=== PATIENT | female | born 1950 | race Caucasian/White ===

== ENCOUNTER 2020-04-01 10:21 | Emergency (ER) | payer MEDICARE, BC, SELFPAY ==
[2020-04-01 11:14] VITALS: BP 146/63; PULSE 81; RESP 16; TEMP 37; O2SAT 94; BMI 27.1
--- NOTE | 2020-04-01 11:25 | HMH.EDUTC ---
[facility] [place] Disposition Clinical Impression: Exposure to COVID-19 virus Disposition: Home, Self-Care Condition on Discharge: Good Instructions: DI for COVID-19 (Suspected or Confirmed ), Coronavirus Disease 2019, COVID-19: Testing and Tracing, Preventing the Spread of Coronavirus Discharge Instructions Additional Instructions: *Monitor Temp, Over the counter Motrin or Tylenol as directed/as needed Tylenol every 4 hours and Motrin every 6 hours (as long as your family doctor has told you that you can take it) for fever or pain. and straight to ER if unable to lower temp less than 101.0 after medication given Follow up IMMEDIATELY for new or worsening symptoms or no Noticeable improvement over the next 48-72 hours. 911 for difficulty breathing or swallowing You were tested for today for COVID19 your test result should be back in the next 24-48 hours, you may call to the [facility] to see if your test results are back in the next 48 hours [phone] [facility] hours are 9am-9pm You was given a handout with instructions for Self Quarantine and Self isolation for while you wait on test results and what to do if they are positive If you are positive the Health Dept will be contacting you also Referrals: Netta Miles PA [Primary Care Provider] - As needed Time of Disposition: 11:25 Medical Decision Making - Rm Inquiry Pt receiving controlled substance: No Rm was queried for this patient: No Vital Signs: 04/01/20 11:14 Temperature 98.6 F Temperature Source Oral Pulse Rate [Right] 81 Respiratory Rate 16 Blood Pressure [Right Arm] 146/63 H Blood Pressure Mean [Right Arm] 90 Blood Pressure Source [Right Arm] Automatic Cuff Blood Pressure Position [Right Arm] Sitting 02 Sat by Pulse Oximetry 94 L Oxygen Delivery Method Room Air Orders (Tests/Meds): ORDERS Category Date Time Status Covid-19 Nasal PCR ([facility]) Routine Lab 04/01/20 10:50 Received [facility] [place] HPI - General Stated complaint: covid exposure Time Seen by Provider: 04/01/20 11:25 Mode of Arrival: Ambulatory Source of Information: Patient Limitations: No Limitations Description of Symptoms (Recalled from Triage Doc. by RN): pt had covid exposure. Denies any symptoms HEENT Symptoms (Recalled from RN notes): No Resp Symptoms (Recalled from RN notes): No Skin Symptoms (Recalled from RN notes): No MS Symptoms (Recalled from RN notes): No Functional Status (Recalled from RN notes): na - History of Present Illness Provider Complaint: Patient states that she was recently around her grandchild that has since tested positive for COVID State that she is not having any symptoms but wanted to get tested anyway - Related Data Allergies Allergy/AdvReac Type Severity Reaction Status Date / Time From Penicillin G Sodium Allergy Unknown Uncoded 03/19/17 14:32 Penicillin Allergy Unknown Uncoded 03/19/17 14:32 - Worker's Comp Is this a Worker's Comp case?: No H History - Hepatitis A Screen Drug use history?: No High risk sexual behaviors?: No History of sexually transmitted infection?: No Currently employed?: No Childcare worker?: No Do you have indoor plumbing?: Yes Do you have electricity?: Yes Attestation statement:: This patient has been screened for Hepatitis A risk factors. I have reviewed the patient's past medical history: Yes ROS Obtained: Yes All systems reviewed & no additional complaints, Yes Systems reviewed as appropriate & no additional complaints - Constitutional Constitutional: Reports system reviewed and no additional complaints, except as docu, Denies body ache, Denies chills, Denies headache(s) - ENT Ears, Nose, Mouth, and Throat: Reports system reviewed and no additional complaints, except as docu - Cardiovascular Cardiovascular: Reports system reviewed and no additional complaints, except as docu Physical Exam - General General appearance: alert, in no apparent distress - Respiratory Respiratory exam: Present: normal
[2020-04-01 11:39] VITALS: BP 146/63; PULSE 81; RESP 16; TEMP 37; O2SAT 98
== END 2020-04-01 11:40 | disposition home or self-care (01) ==
PROVIDERS: Emergency Provider Nurse Practitioner; PCP Physician Assistant
DX: Z20.822 Contact with and (suspected) exposure to COVID-19 (principal); Z88.0 Allergy status to penicillin
CPT/HCPCS: G0463; 99202; U0003

== ENCOUNTER 2020-04-14 08:59 | Emergency (ER) | payer MEDICARE, BC, SELFPAY ==
[2020-04-14 09:05] VITALS: BP 163/89; PULSE 76; RESP 19; TEMP 36.6; O2SAT 98; BMI 28.8
--- NOTE | 2020-04-14 09:34 | HMH.EDUTC ---
[facility] [place] Clinical Impression: Encounter for laboratory testing for COVID-19 virus Disposition: Home, Self-Care Condition on Discharge: Good Instructions: DI for COVID-19 (Suspected or Confirmed ), Coronavirus Disease 2019, Preventing the Spread of Coronavirus Discharge Instructions Additional Instructions: *Monitor Temp, Over the counter Motrin or Tylenol as directed/as needed Tylenol every 4 hours and Motrin every 6 hours (as long as your family doctor has told you that you can take it) for fever or pain. and straight to ER if unable to lower temp less than 101.0 after medication given Follow up IMMEDIATELY for new or worsening symptoms or no Noticeable improvement over the next 48-72 hours. 911 for difficulty breathing or swallowing You were tested for today for COVID19 your test result should be back in the next 24-48 hours, you may call to the [facility] to see if your test results are back in the next 48 hours [phone] [facility] hours are 9am-9pm You was given a handout with instructions for Self Quarantine and Self isolation for while you wait on test results and what to do if they are positive If you are positive the Health Dept will be contacting you also Referrals: Netta Miles PA [Primary Care Provider] - As needed Time of Disposition: 09:36 Medical Decision Making - Rm Inquiry Pt receiving controlled substance: No mR was queried for this patient: No Vital Signs: 04/14/20 09:05 Temperature 97.8 F Temperature Source Oral Pulse Rate [Left Brachial] 76 Respiratory Rate 19 Blood Pressure [Left Arm] 163/89 H Blood Pressure Mean [Left Arm] 113 Blood Pressure Source [Left Arm] Automatic Cuff Blood Pressure Position [Left Arm] Sitting 02 Sat by Pulse Oximetry 98 Oxygen Delivery Method Room Air Orders (Tests/Meds): ORDERS Category Date Time Status Covid-19 Nasal PCR Sendout [facility] Stat Lab 04/14/20 09:14 [place] [facility] [place] - General Stated complaint: Covid test Time Seen by Provider: 04/14/20 09:34 Mode of Arrival: Ambulatory Source of Information: Patient Limitations: No Limitations Description of Symptoms (Recalled from Triage Doc. 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 and her has been having chills and body aches States that she is not having any symptoms but wanted to get checked - Related Data Allergies Allergy/AdvReac Type Severity Reaction Status Date / Time From Penicillin G Sodium Allergy Unknown Uncoded 03/19/17 14:32 Penicillin Allergy Unknown Uncoded 03/19/17 14:32 - Worker's Comp Is this a Worker's Comp case?: No [facility] History - Hepatitis A Screen Drug use history?: No High risk sexual behaviors?: No History of sexually transmitted infection?: No Currently employed?: No Childcare worker?: No Do you have indoor plumbing?: Yes Do you have electricity?: Yes Attestation statement:: This patient has been screened for Hepatitis A risk factors. I have reviewed the patient's past medical history: Yes - Social History Alcohol Intake: never Occupational Status: other ROS Obtained: Yes All systems reviewed & no additional complaints, Yes Systems reviewed as appropriate & no additional complaints - Constitutional Constitutional: Reports system reviewed and no additional complaints, except as docu, Denies body ache, Denies chills, Denies fever(s), Denies headache(s) - ENT Ears, Nose, Mouth, and Throat: Reports system reviewed and no additional complaints, except as docu, Denies nasal congestion, Denies nasal discharge, Denies sore throat - Cardiovascular Cardiovascular:
[2020-04-14 09:43] VITALS: BP 163/89; PULSE 76; RESP 19; TEMP 36.6; O2SAT 98
[2020-04-15 08:52] LABS: Covid-19 Nasal PCR Sendout P&C POSITIVE
--- NOTE | 2020-04-15 09:36 | PC.NURSE ---
patient notified of positive covid results
== END 2020-04-14 09:45 | disposition home or self-care (01) ==
PROVIDERS: Emergency Provider Nurse Practitioner; PCP Physician Assistant
DX: U07.1 COVID-19 (principal); Z88.0 Allergy status to penicillin
CPT/HCPCS: 99202; G0463; U0004

== ENCOUNTER 2021-12-03 08:16 | Emergency (ER) | payer MEDICARE, BC, SELFPAY ==
[2021-12-03 08:25] VITALS: BP 187/94; PULSE 78; RESP 18; TEMP 36.6; O2SAT 97; BMI 27.8
[2021-12-03 08:39] LABS: Apearance,Urine Cloudy (Clear); Bilirubin,Urine Negative (Negative); Blood, Urine Trace (Negative); Color,Urine Yellow (Yellow); Glucose,Urine (UA) Negative (Negative); Ketones,Urine Negative (Negative); PH,Urine 5.5 (5.0-8.5); Protein,Urine 1+ (Negative); UTC Leukocyte Esterase,Urine 1+ (Negative); UTC Nitrate,Urine Positive (Negative); Urobilinogen,Urine 0.2 EU/dl (0.2)
[2021-12-03 08:40] VITALS: BP 187/94; PULSE 78; RESP 18; TEMP 36.6; O2SAT 97
--- NOTE | 2021-12-03 08:40 | EXP.UTC ---
Discharge Plan Disposition Patient Disposition: Home, Self-Care Condition: Good Prescriptions Prescriptions: New sulfamethoxazole-trimethoprim [Bactrim DS] 800-160 mg tablet 1 tab PO Q12H 3 Days Qty: 6 0RF No Action metformin 500 mg Tablet Extended Release 24 Hr 500 mg PO BID Referrals Follow up/Referrals: Netta Miles PA [Primary Care Provider] - See instructions Clinical Impressions Clinical Impression: UTI (urinary tract infection), bacterial Instructions Patient Instructions: DI for Urinary Tract Infection (UTI) Discharge ED Provider: Nohemy Silverman [facility] [place] H[place] General Stated complaint: possible UTI Mode of Arrival: Ambulatory Source of Information: Patient Limitations: No Limitations Time Seen by Provider: 12/03/21 08:41 Description of Symptoms (Recalled from Triage Doc. by RN): PATIENT C/O BURNING WITH URINATION X 5 DAYS HEENT Symptoms (Recalled from RN notes): No Resp Symptoms (Recalled from RN notes): No Skin Symptoms (Recalled from RN notes): No MS Symptoms (Recalled from RN notes): No Functional Status (Recalled from RN notes): WNL History of Present Illness Provider Complaint: Pt relates that for the last 4 days she has had burning and frequency with urination. She denies taking anything for her symptoms. Related Data Home Medications Medication Instructions Recorded Confirmed metformin 500 mg tablet,extended 500 mg PO BID Diabetes 12/03/21 12/03/21 release 24 hr Previous Rx's Medication Instructions Recorded sulfamethoxazole 800 1 tab PO Q12H 3 days #6 tabs 12/03/21 mg-trimethoprim 160 mg tablet (Bactrim DS) Allergies Allergy/AdvReac Type Severity Reaction Status Date / Time Penicillins Allergy Verified 04/14/20 09:34 Worker's Comp Is this a Worker's Comp case?: No [facility] Medical History (Updated 12/03/21 @ 08:52 by Nohemy Silverman APRN) Diabetes mellitus, type 2 History of heart attack History of left heart catheterization Surgical History (Updated 12/03/21 @ 08:34 by Cindy Ritchie RN) History of tubal ligation Social History (Updated 12/03/21 @ 08:35 by Cindy Ritchie RN) Smoking Status: Unknown if ever smoked alcohol intake: never current occupational status: other Travel in the last 8 weeks: None ROS Obtained: Yes All systems reviewed & no additional complaints except as documented Constitutional Constitutional: Reports system reviewed and no additional complaints, except as documented ENT Ears, Nose, Mouth, and Throat: Reports system reviewed and no additional complaints, except as documented Cardiovascular Cardiovascular: Reports system reviewed and no additional complaints, except as documented Respiratory Respiratory: Reports system reviewed and no additional complaints, except as documented Gastrointestinal Gastrointestingal: Reports system reviewed and no additional complaints, except as documented Genitourinary Female Genitourinary: Reports dysuria, Denies flank pain and Reports urinary frequency Neurologic Neurologic: Reports system reviewed and no additional complaints, except as documented Physical Exam General General appearance: alert and in no apparent distress ENT ENT exam: Present normal exam Respiratory Respiratory exam: Present normal lung sounds bilaterally and respiratory distress Cardiovascular Cardiovascular exam: Present regular rate and normal rhythm Abdominal Exam Abdominal exam: Present soft and normal bowel sounds; Absent tenderness Back Exam Back exam: Present normal inspection; Absent CVA tenderness (R) or CVA tenderness (L) Neurological Exam Neurological exam: Present alert and oriented X3 Lymphatic Lymphatic Findings: no adenopathy Medical Decision Making Rm Inquiry Pt receiving controlled substance: No Rm was queried for this patient: No Vital Signs: 12/03/21 08:25 Temperature 97.9 F Temperature Source Oral Pulse Rate [Right Brachial] 78 Respi
== END 2021-12-03 08:58 | disposition home or self-care (01) ==
PROVIDERS: Nurse Practitioner; Emergency Provider Nurse Practitioner Family; PCP Physician Assistant
DX: N39.0 Urinary tract infection, site not specified (principal); B96.89 Other specified bacterial agents as the cause of diseases classified elsewhere
CPT/HCPCS: 81003; 87086; 87088; 87186; 99212; G0463

== ENCOUNTER 2022-09-02 08:29 | Emergency (ER) | payer MEDICARE, BC, SELFPAY ==
[2022-09-02 08:29] VITALS: BP 195/98; PULSE 78; RESP 18; TEMP 36.8; O2SAT 98; BMI 25.2
--- NOTE | 2022-09-02 08:38 | EXP.UTC ---
Discharge Plan Disposition Patient Disposition: Home, Self-Care Condition: Good Prescriptions Prescriptions: New azithromycin [Zithromax] 250 mg tablet 250 mg PO UD DOSE PK Qty: 6 0RF Rx Instructions: Take two (2) tablets today, then one (1) tablet days #2 thru #5 benzonatate [benzonatate] 100 mg capsule 100 mg PO TIDP PRN (Reason: Cough) Qty: 30 0RF methylprednisolone 4 mg Tablets,Dose Pack 4 mg PO DIRECTED Qty: 21 0RF No Action metformin 500 mg Tablet Extended Release 24 Hr 500 mg PO BID sulfamethoxazole-trimethoprim [Bactrim DS] 800-160 mg tablet 1 tab PO Q12H 3 Days Qty: 6 0RF Referrals Follow up/Referrals: Netta Mayfield PA [Primary Care Provider] - See instructions Activity Restrictions/Add. Instructions Additional Instructions/Restrictions: Drink plenty of fluids. Take tylenol or ibuprofen for pain or fever. Take the medications as directed. Follow up with your regular doctor. GO TO THE ER FOR ANY WORSENING SYMPTOMS Clinical Impressions Clinical Impression: Sinusitis Instructions Patient Instructions: Sinusitis, DI for Sinusitis [place]charge ED Provider[place] Guilherme [place] [facility] [place] General Stated complaint: sinus pain Time Seen by Provider: 09/02/22 08:38 History of Present Illness Provider Complaint: She states that for the past 4 days she has had sinus congestion and a cough. Related Data Home Medications Medication Instructions Recorded Confirmed metformin 500 mg tablet,extended 500 mg PO BID Diabetes 12/03/21 12/03/21 release 24 hr Previous Rx's Medication Instructions Recorded sulfamethoxazole 800 1 tab PO Q12H 3 days #6 tabs 12/03/21 mg-trimethoprim 160 mg tablet (Bactrim DS) azithromycin 250 mg tablet 250 mg PO UD DOSE PK #6 tabs 09/02/22 (Zithromax) benzonatate 100 mg capsule 100 mg PO TIDP PRN Cough #30 caps 09/02/22 methylprednisolone 4 mg tablets in 4 mg PO DIRECTED #21 tabs 09/02/22 a dose pack Allergies Allergy/AdvReac Type Severity Reaction Status Date / Time Penicillins Allergy Verified 04/14/20 09:34 [facility] Disclaimer: The information contained in this section may have been updated after the patient was seen, as this information can be updated by other users. Medical History Diabetes mellitus, type 2 History of heart attack History of left heart catheterization Surgical History History of tubal ligation Social History Smoking Status: Unknown if ever smoked alcohol intake: never current occupational status: other Travel in the last 8 weeks: None ROS Obtained: Yes All systems reviewed & no additional complaints except as documented Constitutional Constitutional: Reports poor appetite Eyes Eyes: Reports system reviewed and no additional complaints, except as documented ENT Ears, Nose, Mouth, and Throat: Reports as per HPI Cardiovascular Cardiovascular: Reports system reviewed and no additional complaints, except as documented and Denies chest pain Respiratory Respiratory: Denies shortness of breath, Denies chest congestion, Reports cough, Denies stridor and Denies wheezing Gastrointestinal Gastrointestingal: Reports system reviewed and no additional complaints, except as documented; Denies abdominal pain, diarrhea or vomiting Musculoskeletal Musculoskeletal: Reports system reviewed and no additional complaints, except as documented and Denies arthralgias Integumentary/Breasts Skin/Breast: Reports system reviewed and no additional complaints, except as documented and Denies rash Neurologic Neurologic: Denies paresthesias Allergic/Immunologic Allergic/Immunologic: Denies wheezing Physical Exam General General appearance: alert and in no apparent distress Eye Eye exam: Present normal appearance, PERRL and EOMI ENT ENT exa
[2022-09-02 09:15] VITALS: BP 195/98; PULSE 78; RESP 18; TEMP 36.8; O2SAT 98
== END 2022-09-02 09:16 | disposition home or self-care (01) ==
PROVIDERS: Emergency Provider Nurse Practitioner Family; PCP Physician Assistant
DX: J01.90 Acute sinusitis, unspecified (principal); E11.9 Type 2 diabetes mellitus without complications; Z79.84 Long term (current) use of oral hypoglycemic drugs
CPT/HCPCS: 99212; 99214; G0463

== ENCOUNTER 2024-06-09 04:42 | Inpatient (IN) | payer MEDICARE, BC, SELFPAY ==
[2024-06-09] VITALS (21 sets, daily range): BP systolic 164–196; BP diastolic 68–94; PULSE 77–94; RESP 15–22; TEMP 36.4–36.6; O2SAT 93–98; BMI 25.2
--- NOTE | 2024-06-09 05:00 | PC.NURSE ---
pt to unit via stretcher at [id number]
--- NOTE | 2024-06-09 05:18 | XR_ITS ---
PROCEDURE INFORMATION: Exam: XR Chest Exam date and time: 06/09/2024 5:24 AM Age: 74 years old Clinical indication: Pain; Chest pressure; Additional info: Chest pain new admission TECHNIQUE: Imaging protocol: Radiologic exam of the chest. Views: 1 view. COMPARISON: No relevant prior studies available. FINDINGS: Lungs: Basilar scarring/atelectasis. Pleural spaces: Unremarkable. No pleural effusion. No pneumothorax. Heart/Mediastinum: Unremarkable. No cardiomegaly. Bones/joints: Degenerative change of the visualized osseous structures. IMPRESSION: No acute cardiopulmonary findings. Probable basilar atelectasis/scarring.
--- NOTE | 2024-06-09 05:31 | P.HP_ITS ---
<Statement entered by Mahesh Martinez MD - 06/15/24 19:48> Personally evaluated patient and agree with plan of care as outlined by the GAUGE [employer]KER APPRENTICE. History of Present Illness *Admission Date: 06/09/24 *Reason for visit:: Chest pain non-STEMI *History of present illness: This 74-year-old female who looks much older than her stated age, began to have chest pain early last evening. Patient rated it 8 out of 10. Took nitroglycerin decreased it to 5 and went to the emergency room.. To [facility] where she went to does not have interventional cardiology she is requested to be able to come to [facility]. Dr. Coelho was consulted and he will except the patient for care. Patient was transported here by ambulance and is being settled into the ICU as a stepdown patient.. Further reports that I got from the ER physician and from the documentation they sent shows that the patient had elevated troponin with no ST elevation. BNP up to 1893 glucose also uncontrolled at 282 patient also noted that blood pressures systolic from the 170s to the 190s.. Per the note patient has had aspirin Brilinta and Lovenox GI cocktail and some hydralazine. Patient notes a history of having an AR in the past and having stents placed at [facility] approximately 5 years ago.. She noted that she quit smoking probably 5 months ago but had smoked for more than 15 years. Difficult situation at home. As the patient says she does not have the money to buy all the medications. That she does not have primary care. This is because her has dementia and she cannot leave him.. Some of the medication he is on is very expensive and they have a limited income. Patient noted that there was a relative taking care of the at this time., That she also had a daughter that lives in [place]. That could also come and help her. Patient is being settled and labs are being redrawn. Chest x-ray,. done and shows that the heart is of basically normal size without any real acute changes . [facility] Disclaimer: The information contained in this section may have been updated after the patient was seen, as this information can be updated by other users. Medical History (Updated 06/09/24 @ 05:48 by Tony Chirinos APRN) Sinusitis UTI (urinary tract infection), bacterial Encounter for laboratory testing for COVID-19 virus Exposure to COVID-19 virus FHx: cholecystectomy History of left heart catheterization Diabetes mellitus, type 2 History of heart attack Surgical History History of tubal ligation Social History (Updated 06/09/24 @ 05:41 by Tony Chirinos APRN) Smoking Status: Former smoker smoking status start date: 2003 years smoked: 20 smoking status stop date: 2023 how long ago did patient quit smoking: Has stopped for 5-month alcohol intake: never current occupational status: other Travel in the last 8 weeks: None adopted: No caregiver/support person: No foster care: No household members: spouse housing: house lives independently: Yes marital status: number of children: 2 diet: diabetic Other Medical History Have you received the Flu Vaccine for this season: No Have you received the Pneumonia Vaccine: No Review of Systems Review of Systems Review of systems:: pertinent systems reviewed and negative unless documented below Review of systems (narrative): Patient is being settled into the intensive care unit at this time, patient t ransferred from [facility]. Patient is alert oriented and gives a very good history Constitutional Constitutional: Reports as per HPI Eyes Eyes: Reports as per HPI ENT Ears, Nose, Mouth, and Throat: Reports as per HPI *Cardiovascular Cardiovascular: Reports as per HPI and Reports chest pain Comments: No chest pain at present time *Respiratory Respiratory: Reports as per HPI Comments: Normal O2 saturations on room air. Patient was a smoker but has not smoked for 5 months *Gastrointestinal Gastrointestinal: Reports as per HPI and Reports dyspepsia *Genitourinary Genitourinary: Reports as per HPI *Musculoskeletal Musculoskeletal: Reports as per HPI Integumentary/Breasts Skin/Breast: Reports as per HPI *Neurologic Neurologic: Reports as per HPI Psychiatric Psychiatric: Reports as per HPI Comments: Patient very calm. Cooperative Endocrine Endocrine: Reports as per HPI Hematologic/Lymphatic Hematologic/Lymphatic: Reports as per HPI Allergic/Immunologic Allergic/Immunologic: Reports as per HPI Meds Home Medications and Allergies Home Medications ?Medication ?Instructions ?Recorded ?Confirmed ?Type metformin 500 mg tablet,extended 500 mg PO BID Diabetes 12/03/21 12/03/21 History release 24 hr sulfamethoxazole 800 1 tab PO Q12H 3 days #6 tabs 12/03/21 Rx mg-trimethoprim 160 mg tablet (Bactrim DS) azithromycin 250 mg tablet 250 mg PO UD DOSE PK #6 tabs 09/02/22 Rx (Zithromax) benzonatate 100 mg capsule 100 mg PO TIDP PRN Cough #30 caps 09/02/22 Rx methylprednisolone 4 mg tablets in 4 mg PO DIRECTED #21 tabs 09/02/22 Rx a dose pack New Prescriptions to Start Prescriptions: Allergies Allergy/AdvReac Type Severity Reaction Status Date / Time Penicillins Allergy Verified 04/14/20 09:34 Exam Data for Last 24 hours Vital signs and Labs for Last 24 Hours: Troponin 602 NG/L, BNP 1893, glucose 282. Radiology Reports for the Last 24 Hours: Normal chest x-ray Narrative: Patient is being settled in the ICU at this time, she appears to be in no distress. Denies any chest pain at present and is on room air Constitutional Constitutional: no acute distress and obese Comments: Patient looks older than stated age *Routine HEENT Exam Head: Present normocephalic and atraumatic Eye: Present EOMI, PERRL and normal accommodation ENT: Present mucous membranes moist Comments: Patient missing several teeth. But has no dentures but states she is able to chew food *Routine Neck Exam Neck: Present supple and full ROM Routine Chest/Breast/Axilla Exam Comments: No tenderness was found on exam. *Routine Respiratory Exam Respiratory: Present CTA bilaterally, normal respiratory effort, able to speak in complete sentences and symmetric chest movement *Routine Cardiovascular Exam Cardiovascular: Present RRR, Normal S1 and Normal S2 Comments: Skin turgor is poor. But patient has brisk capillary refills with nice pink nailbeds *Routine Abdominal Exam Abdominal: Present soft and normoactive bowel sounds Comments: No tenderness noted on abdominal exam *Routine Rectal Exam Rectal:: deferred *Routine Genitalia Exam Genitalia:: deferred *Routine Extremities Exam Extremities: Present full ROM, pulses intact and normal capillary refill Comments: Patient is can ambulate freely. Has no injuries at this point in time Routine Back/Spine/Pelvis Exam Back/Spine: Present full ROM Comments: Patient is able to move sit up twist in the bed. Did not have her walk at this time as she is being settled in *Routine Skin Exam Skin: Present intact and warm Comments: Turgor is poor in both arms and legs. *Routine Neurological Exam Neurological: Present alert, oriented X3, CN II-XII intact, normal reflexes, normal tone, vision grossly intact and hearing grossly intact Routine Psychiatric Exam Psychiatric: Present normal affect, normal thought process, cooperative, good insight and good judgment H&P: Result Impressions 1. History of coronary artery disease with stents now having chest pain. 2. Diabetes mellitus uncontrolled. 3. Stressful home situation being caregiver for her with dementia. Does not see any regular provider. Imaging and Cardiology Chest x-ray: Status: image reviewed by me Additional comments: No acute findings Assessment and Plan *Assessment and plan (1) Non-STEMI (non-ST elevated myocardial infarction): Status: Acute Category: Medical Code(s): I21.4 - Non-ST elevation (NSTEMI) myocardial infarction (2) Chest pain: Status: Acute Category: Medical Code(s): R07.9 - Chest pain, unspecified (3) Diabetes mellitus type 1, uncontrolled: Status: Acute Category: Medical (4) Caregiver burden: Status: Acute Category: Social Hx Code(s): Z63.6 - Dependent relative needing care at home Plan 1. Dr. Coelho has been contacted by the [place] transfer center. Has excepted the patient, patient being settled into the ICU is a stepdown patient on continuous monitoring. 2. Diabetes mellitus poorly controlled starting on fingerstick blood sugars and medium sliding scale 3. Anticipate catheterization in the morning. Patient has received aspirin Brilinta and Lovenox at the [facility]., Other needed admission orders have been placed
[2024-06-09 06:01] LABS: Basophils # 0.1 K/mm3 (0-0.2); Basophils % 1.2 % (0.1-2.0); Eosinophils # 0.2 K/mm3 (0.0-0.4); Eosinophils % 2.1 % (0.1-12.0); Hematocrit 42.1 % (37.0-47.0); Hemoglobin 14.5 g/dL (12.2-16.2); Lymphocytes # 2.3 K/mm3 (0.7-4.5); Lymphocytes % 29.2 % (10-50); Mean Corpuscular HGB Conc 34.4 g/dL (31.8-35.4); Mean Corpuscular Hemoglobin 31.5 pg (27.0-31.2); Mean Corpuscular Volume 91.5 fl (81-99); Mean Platelet Volume 11.8 fl (7.4-10.4); Monocytes # 0.5 K/mm3 (0.1-1.0); Monocytes % 6.5 % (1.7-9.3); Neutrophils # 4.7 K/mm3 (1.8-7.8); Neutrophils % 60.5 % (37.0-80.0); Platelet Count 200 K/mm3 (142-424); Red Cell Distribution Width 12.7 % (11.5-17.5); White Blood Count 7.8 K/mm3 (4.8-10.8)
[2024-06-09 06:09] LABS: Alanine Aminotransferase 24 U/L (12-78); Albumin Level 4.6 g/dl (3.5-5.0); Albumin/Globulin Ratio 1.6 (1.1-1.8); Alkaline Phosphatase 89 U/L (38-126); Anion Gap 11.6 mEq/L (5-15); Aspartate Amino Transferase 44 U/L (14-36); Bilirubin,Total 0.5 mg/dl (0.2-1.3); Blood Urea Nitrogen 16 mg/dl (7-17); Calcium 9.7 mg/dl (8.4-10.2); Carbon Dioxide 25 mmol/L (22.0-30.0); Chloride 106 mmol/L (98-107); Chol/HDL Ratio 5.9 (1-3.5); Cholesterol 272 mg/dl (140-200); Creatinine Clearance Estimated 60 mL/min (50-200); Estimated Glomerular Filt Rate 82 ml/min (>60); GFR (African American) 99 ML/MIN (>60); Globulin 2.9 g/dL (1.3-3.2); Glucose 198 mg/dl (74-100); HDL Cholesterol 46 mg/dl (40-60); Magnesium 1.9 mg/dl (1.6-2.3); Potassium 3.6 mmoL/L (3.5-5.1); Sodium 139 mmol/L (136-145); Total Protein,Serum 7.5 g/dl (6.3-8.2); Triglycerides 231 mg/dl (30-150); VLDL Cholesterol 46 mg/dL (0-40)
[2024-06-09] MEDS: HYDRALAZINE 20MG/ML VIAL 10 MG IV (06:18)
[2024-06-09 06:20] LABS: Direct LDL Cholesterol 166.31 mg/dL (100-129)
[2024-06-09] MEDS: humaLOG 100 UNITS/ML 10ML VIAL (SSI) SUBCUT (06:22)
--- NOTE | 2024-06-09 06:38 | PC.NURSE ---
pt alert and oriented. no complaints of chest pain and no shortness of breath. pt is on room air. pt is hypertensive. 10mg of hydralazine was given. Pt has not been taken any of her medications due to not being able to afford them she states because her needs his medications more. pt has cardiology consult this am. pt given incentive spirometer and instructured to use each hour while awake.
--- NOTE | 2024-06-09 07:54 | CA_ITS ---
APPROVED REPORT EXAM: Comprehensive 2D, Doppler, and color-flow Echocardiogram World History Teacher: Ayde Gonzalez CRT Ht: 5 ft 8 in Wt: 165lbs BSA: 1.88 BP: 167/68 mmHg Indications: Chest Pain, Non STEMI, Diabetes, CAD, Old CA, stents, ex smoker, non compliant with meds 2D Dimensions LA Volume 58.10 mL LA Volume Index 30.10 mL/m2 (M/F) 16-34 M-Mode Dimensions RVDd 1.84 cm (0.9-2.6) LA Diam 4.23 cm (1.9-4.0) LVDd 4.25 cm (3.5-5.7) LVDs 2.98 cm (3.5-5.7) IVSd 1.51 cm (0.6-1.1) PWd 1.14 cm (0.6-1.1) EF (Teich) 57.40% FS 29.90% EDV (Teich) 80.80 mL TAPSE 2.17 (<1.7) ESV (Teich) 34.40 mL LV Diastology E Decel Time 150 (160-240 msec) E/A Ratio 0.86 MED A' 8.80 cm/s LAT A' 10.40 cm/s Aortic Valve AI PHT 584.00 ms AO Peak GR. 6.90 mmHg Mitral Valve MV E Max Lenny. 89.0 (40-130 cm/s) MV A Velocity 104.0 (40-130 cm/s) E/A Ratio 0.86 MV PHT 44.0 ms Pulmonary Valve PV Peak Velocity 173.0 (50-150 cm/s) Tricuspid Valve TR P. Velocity 295.00 cm/s RAP Estimate 10.00 mmHg RVSP 44.90 mmHg Left Ventricle The left ventricle is normal size. The left ventricular systolic function is normal. The left ventricular ejection fraction is within the normal range. There is increased LV wall thickness. There is normal LV segmental wall motion. Transmitral Doppler flow pattern suggests impaired LV relaxation. LVEF is 60%. Right Ventricle The right ventricle is normal size. The right ventricular systolic function is normal. Atria Left atrium is mildly dilated. The right atrium size is normal. There is no Doppler evidence of interatrial shunt. Aortic Valve The aortic valve is mildly thickened. There is no aortic valvular stenosis. Mild aortic regurgitation. Mitral Valve The mitral valve is normal in structure. No evidence of mitral valve stenosis. Mild mitral regurgitation. Tricuspid Valve The tricuspid valve leaflets are thin and pliable. Mild tricuspid regurgitation. RVSP is 25-30 mmHg. Pulmonic Valve The pulmonary valve is normal in structure. Trace pulmonic regurgitation. Great Vessels The aortic root is normal in size. IVC is normal in size and collapses >50% with inspiration. Pericardium There is no pericardial effusion. Other Information Study Quality: Fair Conclusion Normal biventricular systolic function. Mild LA dilation. Mild AI, mild MR, mild TR. Electronically signed by : Kierra Schmid MD 06/09/2024 10:08:36
[2024-06-09] MEDS: ASPIRIN EC 81MG TABLET 81 MG PO (08:12)
[2024-06-09 08:51] LABS: Troponin I 2.33 ng/ml (0.00-0.034)
[2024-06-09 09:27] LABS: Troponin I 4.46 ng/ml (0.00-0.034)
--- NOTE | 2024-06-09 09:35 | PC.NURSE ---
notified Dr. Martinez of critical trop of 4.46. pt info verified and repeated back. Also paged cardiology for critical trop notification as well.
--- NOTE | 2024-06-09 09:38 | ECG_ITS ---
APPROVED REPORT Exam: Resting ECG HR:88 bpm ECG Measurements Heart Rate 88 AXES ME 211 P 56 QRSd 85 QRS 49 QT 384 T -9 QTc 430 Conclusion SINUS RHYTHM WITH FIRST DEGREE AV BLOCK NONSPECIFIC T-WAVE ABNORMALITY ABNORMAL ECG UNCONFIRMED REPORT Electronically signed by : Phill Caraballo MD 06/15/2024 08:57:08
[2024-06-09 09:39] LABS: Microscopic, Urine URINE MICROSCOPIC (MICROSCOPIC)
[2024-06-09 10:27] LABS: Appearance,Urine Clear (Clear); Color,Urine Yellow (Yellow); PH,Urine 8.5 (5.0-8.5); Protein,Urine Negative (Negative)
[2024-06-09 10:28] LABS: Blood, Urine Trace (Negative); Glucose,Urine (UA) Trace (Negative); Ketones,Urine Negative (Negative); Nitrate,Urine Negative (Negative)
[2024-06-09 10:29] LABS: Bilirubin,Urine Negative (Negative); Leukocyte Esterase,Urine Negative (Negative); Urobilinogen,Urine 0.2 EU/dl (0.2)
[2024-06-09 10:51] LABS: Bacteria,Urine Trace /lpf; RBC,Urine Occasional #/hpf (0-3); Squamous Epithelial Cell,Urine Occasional #/hpf (0-5); WBC,Urine Occasional #/hpf (0-3)
--- NOTE | 2024-06-09 10:59 | P.CONCA_ITS ---
History of Present Illness History of Present Illness Consult date: 06/09/24 Requesting physician: Guilherme Bianchi Consult reason: chest pain Chief complaint: Chest pain History of present illness: 74-year-old white female with a past medical history of uncontrolled DM and half a pack per day smoker was transferred to [facility] from [place] as an NSTEMI. Patient reports she awoke with midsternal chest pressure and shortness of breath early this morning prompting her to go to the ER. Upon presentation to [place] emergency department patient had an elevated troponin and proBNP. EKG was negative for acute STEMI. Patient was loaded with Brilinta, Lovenox and aspirin and transferred to [facility] for further cardiology evaluation. Chest x-ray on presentation shows no acute cardiopulmonary findings with probable basilar atelectasis/scarring. On exam this morning patient is resting comfortably in bed and denies chest pain or shortness of breath. She remains hypertensive with a systolic blood pressure in the 160s. Initial troponin was 2.33 trending up to 4.46. Echocardiogram shows normal biventricular systolic function. Patient is awaiting left heart catheterization. [facility] Disclaimer: The information contained in this section may have been updated after the patient was seen, as this information can be updated by other users. Medical History (Updated 06/09/24 @ 05:48 by Tony Chirinos APRN) Sinusitis UTI (urinary tract infection), bacterial Encounter for laboratory testing for COVID-19 virus Exposure to COVID-19 virus FHx: cholecystectomy History of left heart catheterization Diabetes mellitus, type 2 History of heart attack Surgical History History of tubal ligation Social History (Updated 06/09/24 @ 05:48 by Liane Thompson RN) Smoking Status: Former smoker smoking status start date: 2003 years smoked: 20 smoking status stop date: 2023 how long ago did patient quit smoking: Has stopped for 5-month alcohol intake: never current occupational status: other Travel in the last 8 weeks: None adopted: No caregiver/support person: No foster care: No household members: spouse housing: house lives independently: Yes marital status: number of children: 2 diet: diabetic Have you lived/traveled outside [place] in past 30 days?: No Contact w/someone who lives/traveled outside US past 30 days?: No Exposure to someone with infectious disease in past 14 days?: No Do you have a fever (greater than 100.4 F or 38 C)?: No Have you tested positive for COVID-19: No Exposed to someone with COVID-19 in past 14 days?: No Do you have a sore throat?: No Do you have a cough?: No Do you have any weakness?: No Are you experiencing any nausea/vomitting?: No Do you have any diarrhea?: No Are you experiencing any unusual bleeding?: No Do you have any muscle aches/pain?: No Do you have any abdominal pain?: No Are you experiencing loss of taste or smell?: No Review of Systems Review of Systems Review of systems:: pertinent systems reviewed and negative unless documented below *Cardiovascular Cardiovascular: Reports chest pain and Reports dyspnea *Respiratory Respiratory: Reports dyspnea *Neurologic Neurologic: Reports as per HPI Exam Data for Last 24 hours Vital signs and Labs for Last 24 Hours: Temp Pulse Resp BP Pulse Ox O2 Del Method 97.6 F 94 H 16 167/68 H 94 L Room Air 06/09/24 08:00 06/09/24 08:00 06/09/24 08:00 06/09/24 08:00 06/09/24 08:00 06/09/24 09:00 Laboratory Results - last 24 hr 06/09/24 05:44: WBC 7.8, RBC 4.60, Hgb 14.5, Hct 42.1, MCV 91.5, MCH 31.5 H, MCHC 34.4, RDW 12.7, Plt Count 200, MPV 11.8 H, Neut % (Auto) 60.5, Lymph % (Auto) 29.2, [place] % (Auto) 6.5, Eos % (Auto) 2.1, Baso % (Auto) 1.2, Neut # (Auto) 4.7, Lymph # (Auto) 2.3, [place] # (Auto) 0.5, Eos # (Auto) 0.2, Baso # (Auto) 0.1, Sodium 139, Potassium 3.6, Chloride 106, Carbon Dioxide 25, Anion Gap 11.6, BUN 16, Creatinine 0.70, Estimated Creat Clear 60, Estimated GFR 82, Est GFR ( Amer) 99, Glucose 198 H, Calcium 9.7, Magnesium 1.9, Total Bilirubin 0.5, AST 44 H, ALT 24, Alkaline Phosphatase 89, Troponin I 2.33 H, Total Protein 7.5, Albumin 4.6, Globulin 2.9, Albumin/Globulin Ratio 1.6, Triglycerides 231 H, Cholesterol 272 H, LDL Cholesterol Direct 166.31 H, VLDL Cholesterol 46 H, HDL Cholesterol 46, Cholesterol/HDL Ratio 5.9 H, TSH 47.50 H 06/09/24 08:52: Troponin I 4.46 H 06/09/24 09:33: Urine Color Yellow, Urine Appearance Clear, Urine pH 8.5, Ur Specific [place] 1.020, Urine Protein Negative, Urine Glucose (UA) Trace, Urine Ketones Negative, Urine Blood Trace A, Urine Nitrate Negative, Urine Bilirubin Negative, Urine Urobilinogen 0.2, Ur Leukocyte Esterase Negative, Urine RBC Occasional, Urine WBC Occasional, Ur Squamous Epith Cells Occasional, Urine Bacteria Trace I & O for Last 24 hours: Intake & Output 06/06/24 06/08/24 06/08/24 06/09/24 23:59 00:59 23:59 23:59 Intake Total 0 / 0 Output Total 1050 / 1050 Balance -1050 / -1050 Weight 165 lb 14.4 oz Constitutional Constitutional: no acute distress *Routine Respiratory Exam Respiratory: Present CTA bilaterally and symmetric chest movement *Routine Cardiovascular Exam Cardiovascular: Present RRR, Normal S1 and Normal S2 *Routine Abdominal Exam Abdominal: Present soft and normoactive bowel sounds; Absent tenderness *Routine Extremities Exam Extremities: Present full ROM and normal capillary refill; Absent edema *Routine Skin Exam Skin: Present intact, dry and warm Detailed Neck Exam: Thyroids Thyroid: Absent bruit Meds Home Medications and Allergies Home Medications ?Medication ?Instructions ?Recorded ?Confirmed ?Type No Known Home Medications 06/09/24 06/09/24 History New Prescriptions to Start Prescriptions: Allergies Allergy/AdvReac Type Severity Reaction Status Date / Time Penicillins Allergy Verified 04/14/20 09:34 Assessment and Plan *Assessment and plan (1) Diabetes mellitus type 1, uncontrolled: Status: Acute Category: Medical (2) Non-STEMI (non-ST elevated myocardial infarction): Status: Acute Category: Medical Code(s): I21.4 - Non-ST elevation (NSTEMI) myocardial infarction (3) Chest pain: Status: Acute Category: Medical Code(s): R07.9 - Chest pain, unspecified Plan NSTEMI CAD Alea score 107 EKG without acute ischemic changes Trop 2.33-4.46 Patient was loaded with Brilinta, aspirin and Lovenox at [facility] Echo shows normal biventricular systolic function, mild left atrial dilation, mild AI/MR/TR Left heart: 2 ARELY to codominant right coronary artery and 1 ARELY to distal circumflex. Chronically occluded mid to distal LAD noted Continue DAPT therapy with aspirin and Brilinta Continue statin and beta-grey Start Ranexa 500 mg p.o. twice daily Hypertension Systolic blood pressure in the 160s Start irbesartan 75 mg p.o. daily and Toprol 12.5 mg daily Hyperlipidemia LDL goal less than 55, LDL is 166 Start atorvastatin 40 mg p.o. daily Diabetes mellitus Defer to primary service Consider addition of Jardiance and/or Ozempic prior to discharge CV summary 06/09/2024: Status post stenting to RCA and distal circumflex with chronically occluded mid to distal LAD noted. Patient is CV stable for discharge home. Please have patient continue below listed medications and follow-up in cardiology clinic on Saturday. Cardiac meds: Aspirin 81 mg p.o. daily Brilinta 90 mg p.o. twice daily Irbesartan 75 mg p.o. daily Toprol 12.5 mg p.o. daily Atorvastatin 40 mg p.o. daily Ranexa 500 mg p.o. twice daily
--- NOTE | 2024-06-09 11:01 | IR_ITS ---
APPROVED REPORT Patient Location: Inpatient [employer] Riveter: DAWIT Lees RT (R) PROCEDURES Left heart catheterization Left ventriculogram Selective coronary angiogram Drug-eluting stent deployment to the proximal and mid codominant right coronary artery Drug-eluting stent deployment to the distal codominant circumflex artery INDICATION Acute non-ST elevation myocardial infarction, Coronary artery disease Informed consent was obtained prior to the procedure. COMPLICATIONS NONE Estimated Blood Loss: LESS THAN 10 ML TECHNIQUE One percent lidocaine used to anesthetize the right anterior aspect of the wrist. The right radial artery was accessed via the Seldinger technique. A 6 Wallisian sheath was placed in the right radial artery. 2.5 mg of Verapamil, 800 mcg of nitroglycerin, 1mg Lidocaine and 5000 U Heparin were given through the arterial sheath. The 6 Wallisian JL 3 guide catheter was also used to perform left heart catheterization, left ventriculogram and selective coronary angiogram. At the end of the diagnostic angiogram therapeutic Was administered giving a therapeutic ACT and the guide catheters placed in the right coronary followed by Choice PT extra-support wire. A 2.75 x 38 mm John frontier stent was initially deployed at 14 betsy reducing the stenosis. An additional 2.75 x 22 mm John frontier stent was placed proximal to the for stent yet still overlapping and deployed at 20 betsy. The balloon was then advanced and deployed at 20 betsy on 2 occasions in the midportion and distal portion of the 38 mm stent to post dilate. CARMINE-3 flow was present before and after the procedure. Following this the apparatus was placed back into the left main artery followed by the Choice PT extra-support wire placed distally. A 2.5 x 15 mm Merritt frontier stent was deployed at 14 betsy in the distal circumflex artery which was the proximal portion of the terminal obtuse marginal artery. This reduced the critical stenosis to 0%. CARMINE-3 flow was present before and after the procedure. Following this the apparatus was removed the sheath was removed and hemostasis was achieved using TR banding patient was transferred to the postop putting in stable condition ANGIOGRAPHIC RESULTS The left main artery Normal The left anterior descending artery Has proximal 30% stenoses followed by a mid vessel stent which is patent throughout however distal to the stent the LAD is subtotally occluded with scant left to left collaterals. There is a large second diagonal artery which has proximal 40% and mid vessel concentric 80% stenosis. The circumflex artery Is codominant and has proximal 30% with mid vessel 30 to 40% stenosis and a 90% stenosis in the proximal portion of a large terminal obtuse marginal artery. The obtuse marginal artery then has a mid vessel tandem 80% stenosis and a vessel diameter less than 2 mm in diameter. The right coronary artery Is codominant and has proximal 70 followed by mid vessel 80 and 90% stenosis. A large posterior descending artery has proximal 70% concentric stenosis The DICKEY ventriculogram reveals Normal 65% The left ventricular end-diastolic pressure 15 mmHg IMPRESSION Coronary disease as described above Successful reconstruction of the proximal to mid codominant right coronary critical disease reduced to 0% with 2 contiguous drug-eluting stents Successful stenting of the distal circumflex artery which extended into the terminal obtuse marginal artery critical disease reduced to 0% with 1 drug-eluting stent Chronically occluded mid to distal LAD as described above Normal ejection fraction Normal LVEDP PLAN 1. Dual antiplatelet therapy 2. Recommend beta-blockers due to the chronic distally occluded LAD. 3. LDL less than 55 to achieve that high intensity statin 4. Should patient's angina be recalcitrant despite maximum medical therapy I would consider attempting to open the distal LAD. Ideally medical management is most warranted 5. Cardiac rehabilitation Electronically signed by : Karsten Coelho MD 06/09/2024 14:35:23
[2024-06-09] MEDS: IRBESARTAN 75MG TABLET 75 MG PO (11:15)
[2024-06-09] MEDS: METOPROLOL SUCCINATE XL 25MG TABLET 12.5 MG PO (11:15)
[2024-06-09 11:20] LABS: Free T4 (Free Thyroxine) 0.52 ng/dl (0.78-2.19)
[2024-06-09] MEDS: diphenhydrAMINE 50MG/ML VIAL 50 MG IV (13:04)
[2024-06-09] MEDS: HEPARIN 1,000 UNITS/500ML NS (CATH LAB) 3000 UNIT IV (13:04)
[2024-06-09] MEDS: HEPARIN 1,000 UNITS/ML 10ML VIAL (CATH LAB) 10000 UNIT IV ×2 (13:05→13:30)
[2024-06-09] MEDS: VERAPAMIL 2.5MG/ML 2ML VIAL 2.5 MG IV (13:05)
[2024-06-09] MEDS: LIDOCAINE 1% 10ML MDV 20 ML IJ (13:05)
[2024-06-09] MEDS: 0.9 % SODIUM CHLORIDE 500 ML 25 ML IV (13:05)
[2024-06-09] MEDS: MIDAZOLAM HCL 1MG/ML 5ML VIAL 1 MG IV (13:26)
[2024-06-09] MEDS: FENTANYL 100MCG/2ML VIAL 50 MCG IV (13:26)
[2024-06-09] MEDS: TICAGRELOR 90MG TABLET 90 MG PO (13:59)
[2024-06-09] MEDS: LEVOTHYROXINE SODIUM 100 MCG VIAL 50 MCG IV (15:19)
--- NOTE | 2024-06-09 15:19 | SW/DCPLANNER ---
I spoke w/ this patient regarding plans at time of discharge. Patient stated that she resides at home w/ her and plans to return back home w/ . 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 I did provide this patient w/ an [facility] Resource List to take home along w/ a private sitters list if needed in the future. Patient stated that she did not feel cost of medications would be an issue at time of discharge but if they were she would reach out. Patient does not feel that she needs any at home resources or DME for herself at this time. Family members were present at the time of my conversation. I will continue to follow up w/ this patient until medically stable for discharge. Discharge date is unknown at this time.
[2024-06-09] MEDS: IOPAMIDOL-370 (76%);100ML BOTTLE 110 ML IV (15:29)
[2024-06-09 15:46] LABS: CATHL Activated Clotting Time 280 SEC (74-125)
--- NOTE | 2024-06-09 16:09 | P.DS_ITS ---
General Admission date:: 06/09/24 HPI HPI HPI: This 74-year-old female who looks much older than her stated age, began to have chest pain early last evening. Patient rated it 8 out of 10. Took nitroglycerin decreased it to 5 and went to the emergency room.. To [facility] where she went to does not have interventional cardiology she is requested to be able to come to [facility]. Dr. Coelho was consulted and he will except the patient for care. Patient was transported here by ambulance and is being settled into the ICU as a stepdown patient.. Further reports that I got from the ER physician and from the documentation they sent shows that the patient had elevated troponin with no ST elevation. BNP up to 1893 glucose also uncontrolled at 282 patient also noted that blood pressures systolic from the 170s to the 190s.. Per the note patient has had aspirin Brilinta and Lovenox GI cocktail and some hydralazine. Patient notes a history of having an PR in the past and having stents placed at [facility] approximately 5 years ago.. She noted that she quit smoking probably 5 months ago but had smoked for more than 15 years. Difficult situation at home. As the patient says she does not have the money to buy all the medications. That she does not have primary care. This is because her has dementia and she cannot leave him.. Some of the medication he is on is very expensive and they have a limited income. Patient noted that there was a relative taking care of the at this time., That she also had a daughter that lives in [place]. That could also come and help her. Patient is being settled and labs are being redrawn. Chest x-ray,. done and shows that the heart is of basically normal size without any real acute changes . Hospital Course Hospital Course Hospital Course: Mary Kate Buckley is a 74-year-old female who presented to [facility] with chest pain and was transferred to our facility for NSTEMI. Patient was loaded with Brilinta at [facility]. #Chest pain #NSTEMI #Hyperlipidemia ? Cardiology consulted, s/p PCI 06/09/2024 with ARELY x 3. Patient tolerated procedure well. ? Aspirin 81 mg, Brilinta 90 mg twice daily, atorvastatin 40 mg, Toprol succinate 25 mg. ? Started ranolazine 500 mg twice daily. ? A1c 8.0, LDL 166. Will need aggressive risk factor management with further PCP and cardiology outpatient follow-ups. ? Advised to follow-up with PCP and cardiology within 2 weeks. #Hypertension ? Continue home irbesartan. #Type 2 diabetes ? Hemoglobin A1c 8.0 during admission. ? Continue home metformin 500 mg twice daily. Will need further evaluation management with PCP within 2 weeks. Exam Data for Last 24 hours Vital signs and Labs for Last 24 Hours: Temp Pulse Resp BP Pulse Ox O2 Del Method 98 F 85 20 166/85 H 95 Room Air 06/09/24 13:45 06/09/24 16:01 06/09/24 16:01 06/09/24 16:01 06/09/24 16:01 06/09/24 15:30 Laboratory Results - last 24 hr 06/09/24 05:44: WBC 7.8, RBC 4.60, Hgb 14.5, Hct 42.1, MCV 91.5, MCH 31.5 H, MCHC 34.4, RDW 12.7, Plt Count 200, MPV 11.8 H, Neut % (Auto) 60.5, Lymph % (Auto) 29.2, [place] % (Auto) 6.5, Eos % (Auto) 2.1, Baso % (Auto) 1.2, Neut # (Auto) 4.7, Lymph # (Auto) 2.3, [place] # (Auto) 0.5, Eos # (Auto) 0.2, Baso # (Auto) 0.1, Sodium 139, Potassium 3.6, Chloride 106, Carbon Dioxide 25, Anion Gap 11.6, BUN 16, Creatinine 0.70, Estimated Creat Clear 60, Estimated GFR 82, Est GFR ( Amer) 99, Glucose 198 H, Hemoglobin A1c 8.0 H, Calcium 9.7, Magnesium 1.9, Total Bilirubin 0.5, AST 44 H, ALT 24, Alkaline Phosphatase 89, Troponin I 2.33 H, Total Protein 7.5, Albumin 4.6, Globulin 2.9, Albumin/Globulin Ratio 1.6, Triglycerides 231 H, Cholesterol 272 H, LDL Cholesterol Direct 166.31 H, VLDL Cholesterol 46 H, HDL Cholesterol 46, Cholesterol/HDL Ratio 5.9 H, TSH 47.50 H, Free T4 0.52 L 06/09/24 08:52: Troponin I 4.46 H 06/09/24 09:33: Urine Color Yellow, Urine Appearance Clear, Urine pH 8.5, Ur Specific [place] 1.020, Urine Protein Negative, Urine Glucose (UA) Trace, Urine Ketones Negative, Urine Blood Trace A, Urine Nitrate Negative, Urine Bilirubin Negative, Urine Urobilinogen 0.2, Ur Leukocyte Esterase Negative, Urine RBC Occasional, Urine WBC Occasional, Ur Squamous Epith Cells Occasional, Urine Bacteria Trace 06/09/24 13:39: Activated Clotting Time 280 H* I & O for Last 24 hours: Intake & Output 06/06/24 06/08/24 06/08/24 06/09/24 23:59 00:59 23:59 23:59 Intake Total 0 / 0 Output Total 1400 / 1400 Balance -1400 / -1400 Weight 75.251 kg Constitutional Constitutional: no acute distress *Routine HEENT Exam Head: Present normocephalic Eye: Present EOMI and PERRL ENT: Present mucous membranes moist *Routine Neck Exam Neck: Present supple; Absent lymphadenopathy *Routine Respiratory Exam Respiratory: Present CTA bilaterally *Routine Cardiovascular Exam Cardiovascular: Present RRR *Routine Abdominal Exam Abdominal: Present soft and normoactive bowel sounds; Absent tenderness *Routine Extremities Exam Extremities: Absent cyanosis, clubbing or edema *Routine Skin Exam Skin: Present warm; Absent rash *Routine Neurological Exam Neurological: Present alert and oriented X3 Results Data Completed and Pending Labs on day of discharge: Labs from last 24 hours 06/09/24 06/09/24 06/09/24 13:39 09:33 08:52 WBC RBC Hgb Hct MCV MCH MCHC RDW Plt Count MPV Neut % (Auto) Lymph % (Auto) [place] % (Auto) Eos % (Auto) Baso % (Auto) Neut # (Auto) Lymph # (Auto) [place] # (Auto) Eos # (Auto) Baso # (Auto) Activated Clotting Time 280 H* Sodium Potassium Chloride Carbon Dioxide Anion Gap BUN Creatinine Estimated Creat Clear Estimated GFR Est GFR ( Amer) Glucose Hemoglobin A1c Calcium Magnesium Total Bilirubin AST ALT Alkaline Phosphatase Troponin I 4.46 H Total Protein Albumin Globulin Albumin/Globulin Ratio Triglycerides Cholesterol LDL Cholesterol Direct VLDL Cholesterol HDL Cholesterol Cholesterol/HDL Ratio TSH Free T4 Urine Color Yellow Urine Appearance Clear Urine pH 8.5 Ur Specific [place] 1.020 Urine Protein Negative Urine Glucose (UA) Trace Urine Ketones Negative Urine Blood Trace A Urine Nitrate Negative Urine Bilirubin Negative Urine Urobilinogen 0.2 Ur Leukocyte Esterase Negative Urine RBC Occasional Urine WBC Occasional Ur Squamous Epith Cells Occasional Urine Bacteria Trace 06/09/24 05:44 WBC 7.8 RBC 4.60 Hgb 14.5 Hct 42.1 MCV 91.5 MCH 31.5 H MCHC 34.4 RDW 12.7 Plt Count 200 MPV 11.8 H Neut % (Auto) 60.5 Lymph % (Auto) 29.2 [place] % (Auto) 6.5 Eos % (Auto) 2.1 Baso % (Auto) 1.2 Neut # (Auto) 4.7 Lymph # (Auto) 2.3 [place] # (Auto) 0.5 Eos # (Auto) 0.2 Baso # (Auto) 0.1 Activated Clotting Time Sodium 139 Potassium 3.6 Chloride 106 Carbon Dioxide 25 Anion Gap 11.6 BUN 16 Creatinine 0.70 Estimated Creat Clear 60 Estimated GFR 82 Est GFR ( Amer) 99 Glucose 198 H Hemoglobin A1c 8.0 H Calcium 9.7 Magnesium 1.9 Total Bilirubin 0.5 AST 44 H ALT 24 Alkaline Phosphatase 89 Troponin I 2.33 H Total Protein 7.5 Albumin 4.6 Globulin 2.9 Albumin/Globulin Ratio 1.6 Triglycerides 231 H Cholesterol 272 H LDL Cholesterol Direct 166.31 H VLDL Cholesterol 46 H HDL Cholesterol 46 Cholesterol/HDL Ratio 5.9 H TSH 47.50 H Free T4 0.52 L Urine Color Urine Appearance Urine pH Ur Specific [place] Urine Protein Urine Glucose (UA) Urine Ketones Urine Blood Urine Nitrate Urine Bilirubin Urine Urobilinogen Ur Leukocyte Esterase Urine RBC Urine WBC Ur Squamous Epith Cells Urine Bacteria DS: Diagnosis Discharge Diagnosis (1) Diabetes mellitus type 1, uncontrolled: Status: Acute (2) Non-STEMI (non-ST elevated myocardial infarction): Status: Acute Code(s): I21.4 - Non-ST elevation (NSTEMI) myocardial infarction (3) Chest pain: Status: Acute Code(s): R07.9 - Chest pain, unspecified Meds Home Medications and Allergies Home Medications ?Medication ?Instructions ?Recorded ?Confirmed ?Type aspirin 81 mg tablet,delayed 81 mg PO DAILY 30 days #30 tabs 06/09/24 06/16/24 Rx release atorvastatin 40 mg tablet 40 mg PO HS 30 days #30 tabs 06/09/24 06/16/24 Rx irbesartan 75 mg tablet 75 mg PO DAILY 30 days #30 tabs 06/09/24 06/16/24 Rx levothyroxine 50 mcg capsule 50 mcg PO DAILY #30 caps 06/09/24 06/16/24 Rx metformin 500 mg tablet 500 mg PO BID 30 days #60 tabs 06/09/24 06/16/24 Rx ranolazine 500 mg tablet,extended 500 mg PO BID 30 days #60 tabs 06/09/24 06/16/24 Rx release,12 hr ticagrelor 90 mg tablet (Brilinta) 90 mg PO BID 30 days #60 tabs 06/09/24 06/16/24 Rx metoprolol succinate 25 mg 25 mg PO DAILY 90 days #90 tabs 06/16/24 06/16/24 Rx tablet,extended release 24 hr New Prescriptions to Start Prescriptions: aspirin Michelle,Mahesh atorvastatin Michelle,Mahesh irbesartan Michelle,Mahesh levothyroxine Michelle,Mahesh metformin Michelle,Mahesh ranolazine Michelle,Mahesh ticagrelor [Brilinta] Michelle,Mahesh Allergies Allergy/AdvReac Type Severity Reaction Status Date / Time Penicillins Allergy Verified 06/16/24 13:53 Discharge Plan Disposition Patient Disposition: Home, Self-Care Condition: Fair Discharge Order Discharge Orders: Discharge Order (Routine); Ordered 06/09/24 Ordered By: Mahesh Martinez Follow up Plan Follow up with: Yessi Crews APRN [Nurse Practitioner] - 06/16/24 1:45 pm Netta Mayfield PA [Referring] - 06/16/24 12:00 pm Prescriptions/Medication Reconciliation: New atorvastatin 40 mg Tablet 40 mg PO HS 30 Days Qty: 30 0RF aspirin 81 mg Tablet,Delayed Release (Dr/Ec) 81 mg PO DAILY 30 Days Qty: 30 0RF irbesartan 75 mg Tablet 75 mg PO DAILY 30 Days Qty: 30 0RF ranolazine 500 mg Tablet Extended Release 12 Hr 500 mg PO BID 30 Days Qty: 60 0RF Brilinta 90 mg Tablet 90 mg PO BID 30 Days Qty: 60 0RF levothyroxine 50 mcg capsule 50 mcg PO DAILY Qty: 30 0RF metformin 500 mg tablet 500 mg PO BID 30 Days Qty: 60 0RF No Action metoprolol succinate 25 mg tablet extended release 24 hr 25 mg PO DAILY 90 Days Qty: 90 3RF Problem Reconciliation Problems Reviewed?: Yes Patient Discharge Instructions Print Language: Bulgarian Providers Primary Care Provider: Provider,Referral Admit Provider: Guilherme Bianchi Attending Provider: Guilherme Bianchi
[2024-06-09 16:29] LABS: POC Glucose,Bedside 184 (70-110)
[2024-06-09 16:29] LABS: POC Glucose,Bedside 143 (70-110)
[2024-06-10 11:15] LABS: Triiodothyronine (T3) Free 2.5 pg/mL (2.0-4.4)
[2024-06-10 14:26] LABS: Thyroid Peroxidase Antibodies 231 IU/mL (0-34)
--- NOTE | 2024-06-11 10:16 | SW/DCPLANNER ---
Phoned patient x2. Was not able to leave a message. Wilver Blum
[2024-06-11 21:15] LABS: Thyrotropin Receptor Antibody < 1.10 IU/L (0.00-1.75)
--- OUTSIDE RECORDS SUMMARY | 2024-07-09 11:28 | XMS_ITS | Continuity of Care Document ---
Author Organization [facility] Phone Care Team Providers Care Cabin Equipment Supervisor Name Role Phone NO, DEFINED P Unavailable Unavailable NII MAYA Admitting Unavailabl e NII MAYA Primary Attending Unavaila ble NO, DEFINED P Primary Care Unavailable ALLERGIES AND ADVERSE REACTIONS ALLERGIES AND ADVERSE REACTIONS Code System Allergy Substance Adverse Reaction Date Reaction (Severity) Comment Status Reported By Updated By [id number] RXNorm PENICILLIN Rash Shock active [id number] on June 09, 2024 6:18:44 AM UT FAMILY HISTORY RELATION: Father Status: Cause of : Alcoholism Age at : Unknown SNOMED-CT Diagnosis Age At Onset Information not available RELATION: Mother Status: Cause of : Unknown Age at : 81 SNOMED-CT Diagnosis Age At Onset [id number] Diabetes mellitus RESULTS Patient: ANNETTE Araya Date of : 1950 5 LABORATORY RESULTS ORDER 100: CBC AUTO W DIFF ( LOINC: 34253-1) ORDER DATE: June 09, 2024 3:27:00 AM UTC Specimen Source: EDTA Specimen Type: Blood specime n with EDTA PERFORMING LAB: [address] [id number] Result Comment: Final Result Date: June 09, 2024 3:36:00 AM UT (TECH: AY) LOINC TEST FLAG RESULT REFERENCE RANGE UPDA EMELINA BY 6690-2 Leukocytes [#/volume] in Blood by Automated count N 8.2 K/ul 4.0 K/ul - 10.5 K/ul June 09, 2024 3:36:00 AM UTC (TECH: AY) 789-8 Erythrocytes [#/volume] in Blood by Automated count N 4.9 M/mm3 4.2 M/mm3 - 6.4 M/mm3 June 09, 2024 3:36:00 AM UTC (TECH: AY) 718-7 Hemoglobin [Mass/volume] in Blood N 15.3 gm/dl 12.5 gm/dl - 16.0 gm/dl June 09, 2024 3:36:00 AM UTC (TECH: AY) 05400-3 Hematocrit [Volume Fraction] of Blood N 46.8 % 37.0 % - 47.0 % June 09 3:36:00 AM UTC (TECH: AY) 787-2 Erythrocyte mean corpuscular volume [Entitic volume] by Automated count N 95.1 fl 78 fl - 100 fl June 09, 2024 3:36:00 AM UTC (TECH: AY) 785-6 Erythrocyte mean corpuscular hemoglobin [Entitic mass] by Automated count H 31.1 pg 27 pg - 31 pg June 09, 2024 3:36:00 AM UTC (TECH: AY) 786-4 Erythrocyte mean corpuscular hemoglobin concentration [Mass/volume] by Automated count N 32.7 g/dl 32 g/dl - 36 g/dl June 09, 2024 3:36:00 AM UTC (TECH: AY) 48002-5 Erythrocyte distribution width [Ratio] N 12.6 % 11.5 % - 14.0 % June 09, 2024 3:36:00 AM UTC (TECH: AY) 777-3 Platelets [#/volume] in Blood by Automated count N 220 K/ul 150 K/ul - 450 K/ul June 09, 2024 3:36:00 AM UTC (TECH: AY) 64888-9 Platelet mean volume [Entitic volume] in Blood by Automated count H 11.4 fl 6 fl - 9.5 fl June 09, 2024 3:36:00 AM UTC (TECH: AY) 75951-5 Neutrophils/100 leukocytes in Blood N 54.7 % 43 % - 65 % June 09 3:36:00 AM UTC (TECH: AY) 736-9 Lymphocytes/100 leukocytes in Blood by Automated count N 33.4 % 20.5 % - 45.5 % June 09 3:36:00 AM UTC (TECH: AY) 5905-5 Monocytes/100 leukocytes in Blood by Automated count N 6.2 % 5.5 % - 11.7 % June 09 3:36:00 AM UTC (TECH: AY) 713-8 Eosinophils/100 leukocytes in Blood by Automated count H 4.2 % 0.9 % - 2.9 % June 09 3:36:00 AM UTC (TECH: AY) 706-2 Basophils/100 leukocytes in Blood by Automated count H 1.1 % 0.2 % - 1.0 % June 09 3:36:00 AM UTC (TECH: AY) 16655-0 Immature granulocytes/100 leukocytes in Blood by Automated count N 0.4 % 0.0 % - 0.8 % June 09 3:36:00 AM UTC (TECH: AY) 82905-4 Nucleated cells [#/volume] in Blood N 0.0 % June 09 3:36:00 AM UTC (TECH: AY) 35591-1 Neutrophils [#/volume] in Blood N 4.5 K/uL 2.2 K/uL - 4.8 K/uL June 09, 2024 3:36:00 AM UTC (TECH: AY) 731-0 Lymphocytes [#/volume] in Blood by Automated count N 2.8 CELL/MCL 1.3 CELL/MCL - 2.9 CELL/MCL June 09, 2024 3:36:00 AM UTC (TECH: AY) 742-7 Monocytes [#/volume] in Blood by Automated count N 0.5 CELL/MCL 0.3 CELL/MCL - 0.8 CELL/MCL June 09, 2024 3:36:00 AM UTC (TECH: AY) 711-2 Eosinophils [#/volume] in Blood by Automated count H 0.4 CELL/MCL 0 CELL/MCL - 0.2 CELL/MCL June 09, 2024 3:36:00 AM UTC (TECH: AY) 704-7 Basophils [#/volume] in Blood by Automated count N 0.1 CELL/MCL 0.0 CELL/MCL - 1.0 CELL/MCL June 09, 2024 3:36:00 AM UTC (TECH: AY) 00287-7 Immature granulocytes [#/volume] in Blood N 0.03 K/ul June 09 3:36:00 AM UTC (TECH: AY) 93117-9 Nucleated cells [#/volume] in Blood N 0.00 K/uL June 09 3:36:00 AM UT (TECH: AY) 23056-8 Manual Differential panel - Blood N NO June 09, 2024 3:36:00 AM UT (TECH: AY) ORDER 200: COMP METABOLIC PA TENZIN (LOINC: 67969-3) ORDER DATE: June 09, 2024 3:27:00 AM UTC Specimen Source: PLASMA Specimen Type: Plasma specim en PERFORMING LAB: [address] [id number] Result Comment: Final Result Date: June 09, 2024 4:03:00 AM UT (TECH: ME) LOINC TEST FLAG RESULT REFERENCE RANGE UPDA EMELINA BY 2951-2 Sodium [Moles/volume ] in Serum or Plasma N 136 mmol/L 136 mmol/L - 145 mmol/L June 09, 2024 4:03:00 AM UT (TECH: ME) 2823-3 Potassium [Moles/volume] in Serum or Plasma N 3.9 mmol/L 3.6 mmol/L - 5.0 mmol/L June 09, 2024 4:03:00 AM UT (TECH: ME) 2075-0 Chloride [Moles/volu me] in Serum or Plasma N 101 mmol/L 98 mmol/L - 107 mmol/L June 09, 2024 4:03:00 AM UT (TECH: ME) 8-9 Carbon dioxide, tota l [Moles/volume] in Serum or Plasma N 28.3 mmol/L 21.0 mmol/L - 32.0 mmol/L June 09, 2024 4:03:00 AM UT (TECH: ME) 03905-7 Anion gap in Blood N 10.6 M 2024 4:03:00 AM UTC (TECH: ME) 2345-7 Glucose [Mass/volume ] in Serum or Plasma H 282 mg/dl 70 mg/dl - 120 mg/dl June 09, 2024 4:03:00 AM UT (TECH: ME) 6299-2 Urea nitrogen [Mass/volume] in Blood H 21 mg/dL 7 mg/dL - 18 mg/dL June 09, 2024 4:03:00 AM UTC (TECH: ME) 03519-0 Creatinine [Moles/volume] in Blood N 1.3 mg/dL 0.6 mg/dL - 1.3 mg/dL June 09, 2024 4:03:00 AM [facility] ([employer]) 15528-1 Glomerular filtratio n rate/1.73 sq M.predicted by Creatinine-based formula (MDRD) L 43 mlpermin 60 mlpermin June 09, 2024 4:03:00 AM [facility] ([employer]) 2885-2 Protein [Mass/volume ] in Serum or Plasma H 8.3 g/dl 6.4 g/dl - 8.2 g/dl June 09, 2024 4:03:00 AM [facility] (TECH: Exam18) 1751-7 Albumin [Mass/volume ] in Serum or Plasma N 4.1 g/dl 3.4 g/dl - 5.0 g/dl June 09, 2024 4:03:00 AM [facility] ([employer]: Exam18) 2336-6 Globulin [Mass/volum e] in Serum N 4.2 June 09, 2024 4:03:00 AM [facility] (TECH: Exam18) 1759-0 Albumin/Globulin [Ma ss Ratio] in Serum or Plasma N 1.0 0.7 - 2 June 09, 2024 4:03:00 AM [facility] ([employer]: Exam18) 76876-6 Calcium [Mass/volume ] in Serum or Plasma N 9.6 mg/dl 8.5 mg/dl - 10.5 mg/dl June 09, 2024 4:03:00 AM [facility] ([employer]: Exam18) 1975-2 Bilirubin.total [Mass/volume] in Serum or Plasma N 0.30 mg/dL 0.10 mg/dL - 1.00 mg/dL June 09, 2024 4:03:00 AM [facility] (TECH: Exam18) 1920-8 Aspartate aminotransferase [Enzymatic activity/volume] in Serum or Plasma N 18 U/L 0 U/L - 37 U/L June 09, 2024 4:03:00 AM [facility] ([employer]: Exam18) 1742-6 Alanine aminotransferase [Enzymatic activity/volume] in Serum or Plasma N 18 U/L 0 U/L - 65 U/L June 09, 2024 4:03:00 AM [facility] (TECH: Exam18) 6768-6 Alkaline phosphatase [Enzymatic activity/volume] in Serum or Plasma N 99 U/L 46 U/L - 116 U/L June 09, 2024 4:03:00 AM UTC (TECH: ME) ORDER 300: MAGNESIUM (LOINC: 62005-0) ORDER DATE: June 09, 2024 3:27:00 AM UTC Specimen Source: PLASMA Specimen Type: Plasma specim en PERFORMING LAB: [address] [id number] Result Comment: Final Result Date: June 09, 2024 4:03:00 AM UTC (TECH: ME) LOINC TEST FLAG RESULT [place] [address]-6 Magnesium [Mass/volume] in Serum or Plasma N 2.0 MG/DL 1.8 MG/DL - 2.4 MG/DL June 09, 2024 4:03:00 AM UT (TECH: ME) ORDER 400: TROPONIN I FOLLOW -UP HIGH SENS (LOINC: 35043-1) ORDER DATE: June 09, 2024 3:27:00 AM UTC Specimen Source: PLASMA Specimen Type: Plasma specim en PERFORMING LAB: [address] [id number] Result Comment: Final Result Date: June 09, 2024 6:04:00 AM UT (TECH: ME) LOINC TEST FLAG RESULT [place] [address]-9 Troponin I.cardiac [Mass/volume] in Serum or Plasma HH 602 ng/L 0 ng/L - 51 ng/L June 09, 2024 6:04:00 AM UT (TECH: ME) ORDER 500: TROPONIN I QUANT HIGH SENS. (LOINC: 69607-7) ORDER DATE: June 09, 2024 3:27:00 AM UT Specimen Source: PLASMA Specimen Type: Plasma specim en PERFORMING LAB: [address] [id number] Result Comment: Final Result Date: June 09, 2024 4:33:00 AM UT (TECH: ME) LOINC TEST FLAG [place]ULT [place] [address]-9 Troponin I.cardiac [Mass/volume] in Serum or Plasma HH 68 ng/L 0 ng/L - 51 ng/L June 09, 2024 4:33:00 AM UTC (TECH: ME) ORDER 1000: NT-PRO BNP (LOIN C: 75492-2) ORDER DATE: June 09, 2024 3:47:00 AM UTC Specimen Source: PLASMA Specimen Type: Plasma specim en PERFORMING LAB: [address] [id number] Result Comment: Final Result Date: June 09, 2024 4:34:00 AM UTC (TECH: ME) LOINC TEST FLAG RESULT [place] [address]-1 Natriuretic peptide B [Mass or Moles/volume] in Serum or Plasma H 1893.00 PG/ML 0.00 PG/ML - 125.00 PG/ML June 09, 2024 4:34:00 AM UTC (TECH: ME) LABORATORY NARRATIVE RESULTS Information is not available RADIOLOGY RESULTS ORDER 600: CHEST PORTABLE (L OINC: 65474-6) ORDER DATE: June 09, 2024 3:27:00 AM UTC PERFORMING LAB: [address] [id number] Final Result Date: June 09, 2024 6:02:[address] [address] Name: ANTHONY BRYANT Exam Date: 06/08/2024 : 1950 Age 74 years Gender: F Physician: NII MAYA Facility: [facility] Facility HSV: Outpatient Exam: CHEST PORTABLE FINAL REPORT TECHNIQUE: null CLINICAL HISTORY: Chest Pain w/o Trauma/Injury COMPARISON: null FINDINGS: Exam: 1V chest Comparison: None Findings: Mediastinum: No cardiac silhouette enlargement. Lungs: No infiltrate or mass. Prominent reticular markings bilaterally consistent with chronic fibrotic change. Pleura: No pneumothorax or significant effusion. Bones: No acute pathology. IMPRESSION: Impression: No acute pathology. Prominent reticular markings bilaterally consistent with chronic fibrotic change. Authenticated and [facility] Dictated By: Tavo Good Transcribed By: Transcribed On: 06/09/2024 2:02 AM Electronically signed by: Tavo Good 06/09/2024 Thank you for referring ANTHONY BRYANT to [facility]. Legally authenticated by ANU JOHNSON 2024-06-09 02:02:55 PATHOLOGY NARRATIVE RESULTS Information is not available MICROBIOLOGY RESULTS No Micro Labs/Results Exist for Patient BLOOD ADMIN RESULTS Information is not available MEDICATIONS HOME MEDICATIONS Status RXNORM NDC Medication Dose Route Frequency Dates Comments Reported By Updated By Drug Treatment Unknown DISCHARGE MEDICATIONS Status RXNORM NDC Medication Dose Route Frequency Dates Comments Physician Updated By No Discharge Medication Info rmation Available INPATIENT MEDICATIONS Status RXNORM NDC Medication Dose Route Frequency Rat e Quantity Dates Comments Physician Updated By Discont inued [id number] 1443 1135 401 hydrALAZINE (APRESOLINE ) 20 MG/ML SOLN 20.0 MG INTRAV ENOUS ONE TIME ONLY (SCHEDULED DOSE) Start: June 09, 2024 4:48:0 0 AM UTC End: June 09, 2024 4:48:0 0 AM UTC VARGASRAMO S NII INTERFAC ED on June 09, 2024 4:50:00 AM UTC Discont inued XXXX XXX0 008 GI COCKTAIL 30 ML SUSP 30.0 ML ORAL ONE TIME ONLY (SCHEDULED DOSE) Start: June 09, 2024 4:48:0 0 AM UTC End: June 09, 2024 4:48:0 0 AM UTC VARGASRAMO S NII INTERFAC ED on June 09, 2024 4:50:00 AM UTC Discont inued 6655 3000 201 baby aspirin (CHIARA) 81 MG CHEW 81.0 MG ORAL ONE TIME ONLY (SCHEDULED DOSE) Start: June 09, 2024 4:48:0 0 AM UTC End: June 09, 2024 4:48:0 0 AM UTC VARGASRAMO S NII INTERFAC ED on June 09, 2024 4:50:00 AM UTC Discont inued 304730 1374 8092 086 LOVENOX 80 MG/0.8 ML SOLN 80.0 MG SUBCUT ANEOUS ONE TIME ONLY (SCHEDULED DOSE) Start: June 09, 2024 8:27:0 0 AM UTC End: June 09, 2024 8:04:0 0 AM UTC VARGASRAMO S NII INTERFAC ED on June 09, 2024 6:23:00 AM UTC Discont inued [id number] 5937 6077 760 ticagrelor (BRILINTA) 90 MG TABS 90.0 MG ORAL ONE TIME ONLY (SCHEDULED DOSE) Start: June 09, 2024 8:27:0 0 AM UT End: June 09, 2024 8:04:0 0 AM UT ALEK Yuliet BALES INTERFAC ED on June 09, 2024 6:24:00 AM UT SOCIAL HISTORY SOCIAL HISTORY SNOMED-CT Social History Element Description Effective Dates Offered Cessation Comment UpdatedBy [id number] Current Tobacco smoking status Current Every Day Smoker [id number] on June 09, 2024 7:16:11 AM UT SOCIAL HISTORY - Gender Sex: Female SOCIAL HISTORY - Status : status i nformation is not available Intention in Next Year: intention information is not available SOCIAL HISTORY - Sexual Behavior Sexual Orientation Gender Identity SNOMED-CT Description SNO MED -CT Description Activity Level No of Partners Partner Type UpdatedBy Information is not available VITAL SIGNS PATIENT VITAL SIGNS This section displays the mo st recent value for each vital sign as of June 11, 2024 9:47:22 AM [facility] Loinc Code Vital Sign Activity Date Result Updated By 8302-2 Body height June 09, 2024 6:19:40 AM UT 157.48 cm (62.0 in) [id number] on June 09, 2024 6:19:40 AM [facility] 34105-6 Body mass index (BMI ) [Ratio] June 09, 2024 6:19:40 AM UT 30.968 kg/m2 [id number] on June 09, 2024 6:19:40 AM [facility] 3140-1 Body Surface Area Derived From Formula June 09, 2024 6:19:40 AM UT 1.7809 m2 [id number] on June 09, 2024 6:19:40 [place] [address]-7 Body weight Measured June 09 025 6:19:40 AM UT 76.8 kg (169.0 lb) [id number] on June 09, 2024 6:19:40 AM [facility] 8867-4 Heart rate June 09, 2024 7:45:00 AM UT 86 /min [id number] on June 09, 2024 8:04:38 AM UT 8462-4 Diastolic blood pressure June 09, 2024 7:45:00 AM UTC 79.0 mm[Hg] [id number] on June 09, 2024 8:04:38 [place] [address]-0 Oxygen saturation in Arterial blood by Pulse oximetry June 09, 2024 7:45:00 AM UTC 92.0 % [id number] on June 09, 2024 8:04:38 AM UT 9279-1 Respiratory rate June 09, 2024 7:45:00 AM UTC 17 /min [id number] on June 09, 2024 8:04:38 AM UT 8480-6 Systolic blood pressure June 09, 2024 7:45:00 AM UTC 177.0 mm[Hg] [id number] on June 09, 2024 8:04:38 AM [facility] PEDIATRIC GROWTH CHART - VITAL SIGNS This section displays Head C ircumference Percentile, Weight for Length Percentile and BMI Percentile Loinc Code Pediatric Measure Age (Months) Result Updat ed By No Pediatric Growth Chart Pe rcentile Information Available. HEALTH CONCERNS Problems Concern Status Health Concern problem infor mation not available. Smoking Status Status Years Used Consumed packs p er day Health Concern smoking histo ry information not available. Family History Concern Status Health Concern family histor y information not available. ENCOUNTERS ENCOUNTER INFORMATION Reason for Visit CHEST PAIN Admission June 09, 2024 3:17:[address] [address] Discharge June 09, 2024 8:04:00 AM UT AN OTHER SHORT-TERM [facility] HOSPITAL ENCOUNTER DIAGNOSES Notes information is not faiza ilable. Code System Diagnosis Onset Date Diagnosis information is not available. ABSTRACT DIAGNOSES Code System Diagnosis Updated By R10.13 ICD10 EPIGASTRIC PAIN [id number] on 2024 9:46:46 AM UT R07.9 ICD10 CHEST PAIN, UNSPECIFIED [id number] 433 on June 11, 2024 9:46:46 AM UT R42 ICD10 DIZZINESS AND GIDDINESS DLU3 433 on June 11, 2024 9:46:46 AM UT I21.4 ICD10 NON-ST ELEVATION (NSTEMI) MYOCARDIAL INFARCTION [id number] on June 11, 2024 9:46:46 AM UT Z88.0 ICD10 ALLERGY STATUS TO PENICILLIN [id number] on June 11, 2024 9:46:46 AM UT F17.210 ICD10 NICOTINE DEPENDE NCE, CIGARETTES, UNCOMPLICATED [id number] on June 11, 2024 9:46:46 AM UT CARE TEAM Care Cabin Equipment Supervisor Role DEFINED NO Referring NII MAYA Admitting NII MAYA Primary Attending DEFINED NO Primary Care CARE TEAM CARE tag clerk Role on Team Status Start Date End Date Update d By NO DEFINED PRIMARY C Referring normal May 302024 3:28:05 AM UT June 09, 2024 8:04:00 AM [facility] [id number] on June 09, 2024 3:28:05 AM [facility] ZULMA BALES Attending normal May 302024 3:28:05 AM [facility] June 09, 2024 8:04:00 AM [facility] [id number] on June 09, 2024 3:28:05 AM [facility] ZULMA BALES Admitting normal May 302024 3:28:05 AM UT June 09, 2024 8:04:00 AM [facility] [id number] on June 09, 2024 3:28:05 AM [facility] NO DEFINED PRIMARY C PCP normal May 302024 3:18:12 AM UT June 09, 2024 8:04:00 AM [facility] [id number] on June 09, 2024 3:28:05 AM [facility]
== END 2024-06-09 17:41 | disposition home or self-care (01) | DRG 322 ==
PROVIDERS: Internal Medicine; Nurse Practitioner Family; Student in an Organized Health Care Education/Training Program; Admitting Provider Internal Medicine Adolescent Medicine; Visit Provider Internal Medicine Adolescent Medicine
PROC: 027136Z Dilation of Coronary Artery, Two Arteries with Three Drug-eluting Intraluminal Devices, Percutaneous Approach (ICD-10-PCS; principal; 2024-06-09 13:30)
DX: I21.4 Non-ST elevation (NSTEMI) myocardial infarction (principal); I25.10 Atherosclerotic heart disease of native coronary artery without angina pectoris; I10 Essential (primary) hypertension; E78.5 Hyperlipidemia, unspecified; E11.65 Type 2 diabetes mellitus with hyperglycemia; Z87.891 Personal history of nicotine dependence; Z79.84 Long term (current) use of oral hypoglycemic drugs; Z59.86 Financial insecurity; Z63.6 Dependent relative needing care at home; Z79.899 Other long term (current) drug therapy; I16.0 Hypertensive urgency
CPT/HCPCS: 71045; 80053; 80061; 81001; 82962; 83036; 83520; 83735; 84439; 84443; 84481; 84484; 85025; 85347; 86376; 92928; 93005; 93306; 93458; 99152; 99153; C1725; C1769; C1874; C9600; J0360; J1200; J1644; J2250; J3010; Q9967

== ENCOUNTER 2024-06-12 08:59 | Outpatient (CLI) | payer MEDICARE, BC, SELFPAY ==
[2024-06-12 09:33] LABS: Basophils # 0.1 K/mm3 (0-0.2); Basophils % 0.9 % (0.1-2.0); Eosinophils # 0.3 K/mm3 (0.0-0.4); Eosinophils % 3.9 % (0.1-12.0); Hematocrit 43.4 % (37.0-47.0); Hemoglobin 14.6 g/dL (12.2-16.2); Lymphocytes # 1.9 K/mm3 (0.7-4.5); Lymphocytes % 25.5 % (10-50); Mean Corpuscular HGB Conc 33.6 g/dL (31.8-35.4); Mean Corpuscular Hemoglobin 32.1 pg (27.0-31.2); Mean Corpuscular Volume 95.4 fl (81-99); Mean Platelet Volume 11.7 fl (7.4-10.4); Monocytes # 0.5 K/mm3 (0.1-1.0); Monocytes % 6.8 % (1.7-9.3); Neutrophils # 4.8 K/mm3 (1.8-7.8); Neutrophils % 62.6 % (37.0-80.0); Platelet Count 194 K/mm3 (142-424); Red Blood Count 4.55 M/mm3 (4.20-5.40); Red Cell Distribution Width 12.5 % (11.5-17.5); White Blood Count 7.6 K/mm3 (4.8-10.8)
[2024-06-12 10:08] LABS: Anion Gap 10.8 mEq/L (5-15); Blood Urea Nitrogen 18 mg/dl (7-17); Calcium 9.6 mg/dl (8.4-10.2); Carbon Dioxide 28 mmol/L (22.0-30.0); Chloride 102 mmol/L (98-107); Estimated Glomerular Filt Rate 70 ml/min (>60); GFR (African American) 85 ML/MIN (>60); Glucose 174 mg/dl (74-100); Potassium 3.8 mmoL/L (3.5-5.1); Sodium 137 mmol/L (136-145)
== END 2024-06-12 23:59 | disposition home or self-care (01) ==
LOC: LAB 09:00
PROVIDERS: Visit Provider Internal Medicine
DX: R07.9 Chest pain, unspecified (principal); I25.10 Atherosclerotic heart disease of native coronary artery without angina pectoris; I21.4 Non-ST elevation (NSTEMI) myocardial infarction
CPT/HCPCS: 36415; 80048; 85025

== ENCOUNTER 2024-09-21 09:27 | Outpatient (CLI) | payer MEDICARE, BC, SELFPAY ==
[2024-09-21 09:54] LABS: Basophils # 0.1 K/mm3 (0-0.2); Basophils % 0.9 % (0.1-2.0); Eosinophils # 0.4 Kmm3 (0.0-0.4); Eosinophils % 6.9 % (0.1-12.0); Hematocrit 39.8 % (37.0-47.0); Hemoglobin 12.9 g/dL (12.2-16.2); Immature Granulocytes # 0.01 10^3uL; Immature Granulocytes % 0.2 %; Lymphocytes # 1.7 K/mm3 (0.7-4.5); Lymphocytes % 31.4 % (10-50); Mean Corpuscular HGB Conc 32.4 g/dL (31.8-35.4); Mean Corpuscular Hemoglobin 30.3 pg (27.0-31.2); Mean Corpuscular Volume 93.4 fl (81-99); Mean Platelet Volume 11.7 fl (7.4-10.4); Monocytes # 0.4 K/mm3 (0.1-1.0); Monocytes % 7.6 % (1.7-9.3); Neutrophils # 2.9 K/mm3 (1.8-7.8); Nucleated Red Blood Cells # 0 10^3/uL; Nucleated Red Blood Cells % 0 %; Platelet Count 170 K/mm3 (142-424); Red Blood Count 4.26 M/mm3 (4.20-5.40); Red Cell Distribution Width 13.3 % (11.5-17.5); Red Cell Distribution Width-SD 45.5 fL; White Blood Count 5.4 K/mm3 (4.8-10.8)
[2024-09-21 10:17] LABS: Chloride 98 mmol/L (98-107); Potassium 4.1 mmoL/L (3.5-5.1); Sodium 137 mmol/L (136-145)
[2024-09-21 10:19] LABS: Anion Gap 13.1 mEq/L (5-15); Bilirubin,Unconjugated 0.5 mg/dL (0.0-1.1); Blood Urea Nitrogen 12 mg/dl (7-17); Carbon Dioxide 30 mmol/L (22.0-30.0); Estimated Glomerular Filt Rate 70 ml/min (>60); GFR (African American) 85 ML/MIN (>60)
[2024-09-21 10:20] LABS: Alanine Aminotransferase 13 U/L (12-78); Alkaline Phosphatase 90 U/L (38-126); Aspartate Amino Transferase 19 U/L (14-36); Bilirubin,Direct 0.1 mg/dl (0.0-0.4); Bilirubin,Indirect 0.5 mg/dL (0.0-0.9); Bilirubin,Total 0.6 mg/dl (0.2-1.3); Calcium 9.4 mg/dl (8.4-10.2); Cholesterol 216 mg/dl (140-200); Glucose 187 mg/dl (74-100); Magnesium 2.1 mg/dl (1.6-2.3); Total Protein,Serum 6.9 g/dl (6.3-8.2); Triglycerides 137 mg/dl (30-150); VLDL Cholesterol 27 mg/dL (0-40)
[2024-09-21 10:31] LABS: Direct LDL Cholesterol 123.87 mg/dL (100-129)
[2024-09-21 12:25] LABS: Chol/HDL Ratio 5.3 (1-3.5); HDL Cholesterol 41 mg/dl (40-60)
== END 2024-09-21 23:59 | disposition home or self-care (01) ==
PROVIDERS: Visit Provider Internal Medicine
DX: I25.10 Atherosclerotic heart disease of native coronary artery without angina pectoris (principal); I10 Essential (primary) hypertension
CPT/HCPCS: 36415; 80048; 80061; 80076; 83735; 84439; 84443; 85025

== ENCOUNTER 2024-11-02 09:51 | Outpatient (CLI) | payer MEDICARE, BC, SELFPAY ==
--- OUTSIDE RECORDS SUMMARY | 2024-11-02 09:56 | XMS_ITS | Clinical Summary ---
Author Organization [facility] Address [address] [place] [address] Care Team Providers Care Electronic News Gathering Camera Person Name Role Phone Netta Mayfield Primary Care Provider [phone] Allergies Active Allergy Reactions Criticality Noted Date Comments Penicillins Other (See Comments) 02/26/2018 Reaction when a child Medications aspirin 81 MG EC tablet Take 1 tablet by mouth Daily. 30 tablet 11 0 Active glucose blood test stripIndications:Un controlled type 2 diabetes mellitus with hyperglycemia Check sugars daily and as needed 30 each 11 0 Active cyclobenzaprine (FLEXERIL) 5 MG tabletIndications:A cute right-sided low back pain without sciatica Take 1-2 tablets by mouth 3 (Three) Times a Day As Needed for Muscle Spasms. 30 tablet 0 Active omeprazole (PrilOSEC) 20 MG capsuleIndications: Gastroesophageal reflux disease, unspecified whether esophagitis present Take 1 capsule by mouth Daily. 90 capsule 2 1 Active irbesartan (AVAPRO) 75 MG tablet Take 1 tablet by mouth Daily. 5 Active metoprolol succinate XL (TOPROL-XL) 25 MG 24 hr tablet Take 0.5 tablets by mouth Daily. 5 Active ranolazine (RANEXA) 500 MG 12 hr tablet Take 1 tablet by mouth Every 12 (Twelve) Hours. 5 Active Brilinta 90 MG tablet tablet Take 1 tablet by mouth Every 12 (Twelve) Hours. 5 Active nitroglycerin (NITROSTAT) 0.4 MG SL tabletIndications:C oronary artery disease due to lipid rich plaque 1 under the tongue as needed for angina, may repeat q5mins for up three doses 100 tablet 11 5 Active levothyroxine (SYNTHROID, LEVOTHROID) 50 MCG tabletIndications:A cquired hypothyroidism Take 1 tablet by mouth Daily. 90 tablet 1 5 Active atorvastatin (LIPITOR) 40 MG tabletIndications:C oronary artery disease due to lipid rich plaque Take 1 tablet by mouth Every Night. 90 tablet 1 5 Active metFORMIN (GLUCOPHAGE) 500 MG tabletIndications:T ype 2 diabetes mellitus without complication, without long-term current use of insulin Take 1 tablet by mouth Every 12 (Twelve) Hours. 180 tablet 1 5 Active vitamin D (ERGOCALCIFEROL) 1.25 MG (84218 UT) capsule capsuleIndications: Vitamin D insufficiency Take 1 capsule by mouth 1 (One) Time Per Week. 5 capsule 5 5 Active Active Problems Problem Noted Date Diagnosed Date Coronary artery disease due to lipid rich plaque 06/16/2024 Unstable angina 04/22/2019 Overview (04/22/2019): Added automatically from request for surgery [id number] S/P cardiac catheterization 04/17/2019 Hypothyroidism 04/16/2019 Essential hypertension 04/15/2019 NSTEMI (non-ST elevated myocardial infarction) 0 04/15/2019 Type 2 diabetes mellitus wit hout complication, without long-term current use of insulin 02/26/2018 Gastroesophageal reflux disease 02/26/2018 BMI 30.0-30.9,adult 02/26/2018 Resolved Problems Problem Noted Date Diagnosed Date Resolved Date Tobacco abuse 04/15/2019 04/23/2019 Accelerated hypertension 04/15/2019 Chest pain 04/15/2019 04/17/2019 Cigarette nicotine dependenc e without complication 02/26/2018 11/04/2019 Immunizations Immunization Administration Dates Next Due Fluzone High-Dose 65+YRS 12/10/2019,03/01/2018 Pneumococcal Conjugate 13-Valent (PCV13) 018 Pneumococcal Polysaccharide (PPSV23) 11/04/2019 Family History Medical History Relation Name Comments Diabetes Brother Heart attack Brother Kidney disease Brother Breast cancer Neg Hx Ovarian cancer Neg Hx Relation Name Status Comments Brother Social History Tobacco Use Types Packs/Day Years Used Date Smoking Tobacco: Former Cigarettes Q uit: 03/2019 Smokeless Tobacco: Never Tobacco Cessation:Ready to Q uit: Yes; Counseling Given: Yes Alcohol Use Standard Drinks/Week Comments No 0 (1 standard drink = 0.6 oz pur e alcohol) AUDIT-C Answer Date Recorded Frequency of Alcohol Consumption Never 02/26/2018 Average Number of Drinks Not on file 018 Frequency of Binge Drinking Not on file 01/31 PHQ-2 Answer Date Recorded Retired Total Score 1 11/04/2019 PHQ-2 Answer Date Recorded Patient Health Questionnaire-2 Score 0 06/16/2024 Comments No Sex and Gender Information Value Date Recorded Sex Assigned at Not on file Legal Sex Female 12:59 PM EST Gender Identity Not on file Sexual Orientation Not on file Last Filed Vital Signs Vital Sign Reading Time Taken Comments Blood Pressure 142/76 06/16/2024 11:41 AM EDT Pulse 83 06/16/2024 11:41 AM EDT Temperature 36.6 C (97.8 F) 06/16/2024 11:41 AM EDT Respiratory Rate 14 06/16/2024 11:41 AM EDT Oxygen Saturation 98% 06/16/2024 11:41 AM EDT Inhaled Oxygen Concentration - - Weight 72.6 kg (160 lb) 06/16/2024 11:41 AM EDT Height 170.2 cm (5' 7 ) 06/16/2024 11:41 AM EDT Body Mass Index 25.06 06/16/2024 11:41 AM EDT Plan of Treatment Health Maintenance Due Date Last Done Comments DXA SCAN 1950 TDAP/TD VACCINES (1 - Tdap) 1970 COLOGUARD 1996 COLON CANCER SCREENING 5 YEA R SIGMOIDOSCOPY 1996 CT COLONOGRAPHY 1996 FECAL OCCULT BLOOD TEST 1996 FIT Testing (1 year) 1996 ZOSTER VACCINE (1 of 2) 2001 DIABETIC EYE EXAM 12/31/2019 12/30/2018, (Patient-Reported (Performed Externally)) ANNUAL WELLNESS VISIT 11/03/2020 11/04/2019 , 11/04/2019, 03/17/2018, Additional history exists DIABETIC FOOT EXAM 11/03/2020 11/04/2019, 0 11/04/2019, 11/04/2019 COLONOSCOPY 04/01/2022 04/01/2012 COLORECTAL CANCER SCREENING 04/01/2022 MAMMOGRAM 04/07/2023 04/07/2021, 11/07/2019, 06/20/2018, Additional history exists COVID-19 Vaccine (2023-2 5 season) 2023 06/12/2020, 05/15/2020 INFLUENZA VACCINE 12/30/2024 12/10/2019, , 12/10/2019, Additional history exists HEMOGLOBIN A1C 01/13/2025 07/14/2024, 07/2019, 07/22/2019, Additional history exists URINE MICROALBUMIN-CREATININ E RATIO (uACR) 06/16/2025 06/16/2024, 03/17/2018 HEPATITIS C SCREENING Completed 03/17/2018, 018 Pneumococcal Vaccine 50+ Completed 11/04/2019, 01/31 Medical Devices Implanted Type Area Front Worker Device Identifier Shelf Expiration Date Model / Serial / Lot Stent- Implanted:Qty: 2 on 04/16/2019 by Brandon Keyes MD Stent Left: Heart Description:[employer] Lot#[id number] [id number] And Lot#[id number] [id number] Stent Xience Alma Everolimus Reagan 2.5x23mm - [id number] Implanted:Qty: 1 on 04/16/2019 by Brandon Keyes MD at [facility] [employer] [id number] / / [id number] Stent Xience Alma Everolimus Reagan 2.5x15mm - [id number] Implanted:Qty: 1 on 04/16/2019 by Brandon Keyes MD at [facility] [employer] [id number] / / [id number] Stnt Xience Alma Everolimus Reagan 2.5x23mm - [id number] Implanted:Qty: 1 on 05/01/2019 by Brandon Keyes MD at [facility] [employer] [id number] / / Procedures Procedure Name Priority Date/Time Associated Diagnosis Comments HEMOGLOBIN A1C Routine 07/14/2024 8:36 AM EDT Type 2 diabetes mellitus without complication, without long-term current use of insulin POC ALBUMIN/CREATININE RATIO Routine 06/16/2024 12:19 PM EDT Type 2 diabetes mellitus without complication, without long-term current use of insulin MAMMO SCREENING DIGITAL TOMOSYNTHESIS BILATERAL W CAD Routine 04/07/2021 1:07 PM EST Visit for screening mammogram SCANNED - INFLUENZA 12/10/2019 HEPATITIS C ANTIBODY Routine 03/17/2018 9:50 AM EST Need for hepatitis C screening test from Last 3 Months or Most Recently Relevant to Health Maintenance Results * (ABNORMAL) Hemoglobin A1c (07/14/2024 8:36 AM EDT) Pathologist [facility] Hemoglobin A1C 8.10(H) 4.80 - 5.60 % [facility] Comment: Hemoglobin A1C Ranges: Increased Risk for Diabetes 5.7% to 6.4% Diabetes >= 6.5% Diabetic Goal < 7.0% Blood 07/14/2024 8:36 AM EDT 07/14/2024 Narrative [facility] (AMBULATORY) - 07/15/2024 3:07 AM EDT Performed at: [address] [id number] Scrap Piler: Tejinder Sanches MD, Phone: [phone] Patient Fasting: Y us Netta MEJIAS LAB BLOOD ORDERABLES Final Res ult [facility] (AMBULATORY) [address] [place] [address], [place] [phone] [facility] [address] [place] [address], [place] [phone] * (ABNORMAL) POC Albumin/Creatinine Ratio Urine (06/16/2024 12:19 PM EDT) POC ALBUMIN, URINE 80 mg/L POC CREATININE, URINE 100 mg/dL POC Urine Albumin Creatinine Ratio 30-300 mg/g <30 Lot Number [id number] Expiration Date 11/29/24 Urine 06/16/2024 12:1 9 PM EDT us Netta MEJIAS POINT OF CARE TEST ORDERABLES Final Result * Mammo Screening Digital Tomosynthesis Bilateral With CAD (04/07/2021 1:07 PM EST) Anatomical Region Laterality Modality Breast N/A Mammography 04/12/2021 12:2 4 PM EST Impressions 04/12/2021 12:24 PM EST Negative bilateral mammogram. RECOMMENDATION: Continue annual screening mammography. BI-RADS CATEGORY 1, NEGATIVE. CAD was utilized. The standard false-negative rate of mammography is between 10% and 25%. Complex patterns or increased breast density will markedly elevate the false-negative rate of mammography. A letter, in lay terminology, with the results of this exam will be mailed to the patient. This report was finalized on 04/12/2021 12:[address] Drea Mcclure MD. Narrative 04/12/2021 12:24 PM EST DIGITAL SCREENING MAMMOGRAM WITH TOMOSYNTHESIS HISTORY: Screening Mammography. Low dose full field digital breast tomosynthesis imaging was performed with 2D and 3D acquisitions consisting of bilateral CC and MLO views. Examination is compared to prior examination dating back to 06/04/2018. Examination is read in conjunction with computer aided detection. FINDINGS: There are scattered areas of fibroglandular density. No suspicious masses, microcalcifications or areas of architectural distortion are present. us Netta MEJIAS IMG MAMMOGRAPHY ORDERABLES Fin al Result * SCANNED - INFLUENZA (12/10/2019) us Netta MEJIAS CHART REVIEW TABS Final Res ult * Hepatitis C antibody (03/17/2018 9:50 AM EST) Hep C Virus Ab 0.2 0.0 - 0.9 s/co ratio [facility] Comment: Negative: < 0.8 Indeterminate: 0.8 - 0.9 Positive: > 0.9 The CDC recommends that a positive HCV antibody result be followed up with a HCV Nucleic Acid Amplification test (191629). Blood 03/17/2018 9:50 AM EST 03/17/2018 Narrative [facility] (AMBULATORY) - 03/18/2018 6:11 AM EST [facility]formed at: [facility] [address] [place] [id number] Scrap Piler: Butch Del Toro PhD, Phone: [phone] Patient Fasting: N Netta MEJIAS LAB BLOOD ORDERABLES Final Res ult [facility] [address] [place] [address], [facility] [address] [place] [address], from Last 3 Months or Most Recently Relevant to Health Maintenance Insurance [facility] MEDICARE A & B Advance Directives * CPR (Attempt to Resuscitate) (Latest Code Status on File) Date Activated Date Inactivated Comments 04/15/2019 10:31 PM 04/17/2019 3:38 PM Question Answer Comments Code Status (Patient has no pulse and is not breathing): CPR (Attempt to Resuscitate) Medical Interventions (Patie nt has pulse or is breathing): Full Level Of Support Discussed With: Patient Care Teams Electronic News Gathering Camera Person Relationship Specialty Start Date End Date Netta Mayfield PA [address] [place] [address] PCP - General Physician Supervisor Area 02/26/18
--- OUTSIDE RECORDS SUMMARY | 2024-11-02 09:56 | XMS_ITS | Encounter Summary ---
Author Organization [facility] Address [address] [place] [id number] Care Team Providers Care Icebox Worker Name Role Phone Netta Mayfield Primary Care Provider [phone] Encounter Details Date Type Department Care Team (Late st Contact Info) Description 07/29/2024 Results Follow-Up [facility] [address] [facility] [place] [place] [address] Netta Mayfield PA [address] [place], [place] [id number] Social History Tobacco Use Types Packs/Day Years Used Date Smoking Tobacco: Former Cigarettes Q uit: 03/2019 Smokeless Tobacco: Never Alcohol Use Standard Drinks/Week Comments No 0 [...] on file Sexual Orientation Not on file documented as of this encounter Plan of Treatment Scheduled Orders Name Type Priority Associated Diagnoses Orde r Schedule TSH Lab Routine Acquired hypothyroidism Expected: 08/03/2024 (Approximate), Expires: 10/28/2025 T4, free Lab Routine Acquired hypothyroidism Expected: 08/03/2024 (Approximate), Expires: 10/28/2025 documented as of this encounter Visit Diagnoses Diagnosis Acquired hypothyroidism- Primary Unspecified hypothyroidism Vitamin D insufficiency documented in this encounter Additional Health Concerns Assessment Noted Time A fall risk assessment has been complete d for the patient 03/17/2018 8:51 AM EST documented as of this encounter Care Teams Icebox Worker Relationship Specialty Start Date End Date Netta [place] [address] PCP - General Physician Size Changer 02/26/18 documented as of this encounter
[2024-11-02 10:01] VITALS: BP 119/69; PULSE 72; RESP 18; TEMP 36.8; O2SAT 99
[2024-11-02] MEDS: INCLISIRAN SODIUM 284 MG/1.5 ML SYRINGE SUBCUT (10:01)
== END 2024-11-02 10:20 | disposition home or self-care (01) ==
LOC: INF 09:53
PROVIDERS: Visit Provider Internal Medicine
DX: E78.49 Other hyperlipidemia (principal); I25.118 Atherosclerotic heart disease of native coronary artery with other forms of angina pectoris; Z23 Encounter for immunization
CPT/HCPCS: 96372; J1306

== ENCOUNTER 2025-02-02 08:54 | Outpatient (CLI) | payer MEDICARE, BC, SELFPAY ==
--- OUTSIDE RECORDS SUMMARY | 2025-02-02 08:58 | XMS_ITS | Encounter Summary ---
[facility] Address [address] [place] [address] Care Team Providers Care Smokehouse Worker Name Role Phone Netta Mayfield Primary Care Provider Encounter Details Date Type Department Care Team (Late Contact Info) Description 07/29/2024 Results Follow-Up [facility] [address] [place] [address] Netta Mayfield PA [address] [place], [place] [id number] Social History Tobacco Use Types Packs/Day Years [...] as of this encounter Plan of Treatment Upcoming Encounters Date Type Department Care Team (Late Contact Info) Description 02/24/2025 3:00 PM EST Office Visit [facility] [address] [place] [id number] Netta Mayfield PA [address] [place] [address] Scheduled Orders Name Type Priority Associated Diagnoses [...] documented as of this encounter Care Teams Smokehouse Worker Relationship Specialty Start Date End Date Netta Mayfield PA [address] [place] [address] PCP - General Physician Tumbler Machine Operator 02/26/18 documented as of this encounter
--- OUTSIDE RECORDS SUMMARY | 2025-02-02 08:59 | XMS_ITS | Clinical Summary ---
Author Organization [facility] Address [address] [place] [address] Care Team Providers Care Flat Clothier Name Role Phone Netta Mayfield Primary Care Provider [phone] Allergies Active Allergy Reactions Criticality Noted Date [...] 5 Active vitamin D (ERGOCALCIFEROL) 1.25 MG (81519 UT) capsule capsuleIndications: Vitamin D insufficiency Take 1 capsule by mouth 1 (One) Time Per Week. 5 capsule 5 5 Active Active Problems Problem Noted Date Diagnosed Date Coronary artery disease due to lipid rich plaque 06/16/2024 Unstable angina 04/22/2019 Overview (04/22/2019): Added automatically from request for surgery [id number] S/P cardiac catheterization 04/17/2019 Hypothyroidism 04/16/2019 Essential [...] 06/16/2024 11:41 AM EDT Plan of Treatment Upcoming Encounters Date Type Department Care Team (Late st Contact Info) Description 02/24/2025 3:00 PM EST Office Visit [facility] [address] [address] Netta Mayfield PA [address] [address] Health Maintenance Due Date Last Done Comments DXA SCAN 1951 TDAP/TD VACCINES (1 - Tdap) 1970 COLOGUARD 1996 COLON CANCER SCREENING 5 YEA R SIGMOIDOSCOPY 1996 CT COLONOGRAPHY 1996 FECAL OCCULT BLOOD TEST 1996 FIT Testing (1 year) 1996 ZOSTER VACCINE (1 of 2) 2001 DIABETIC EYE EXAM 12/31/2019 12/30/2018, (Patient-Reported (Performed Externally)) COVID-19 Vaccine (3 - Modern a risk series) 07/10/2020 06/12/2020, 05/15/2020 ANNUAL WELLNESS VISIT 11/03/2020 11/04/2019 , 11/04/2019, 03/17/2018, Additional history exists DIABETIC FOOT EXAM 11/03/2020 11/04/2019, 0 11/04/2019, 11/04/2019 COLONOSCOPY 04/01/2022 04/01/2012 COLORECTAL CANCER SCREENING 04/01/2022 MAMMOGRAM 04/07/2023 04/07/2021, 11/0 07/2019, 06/20/2018, Additional history exists INFLUENZA VACCINE 10/30/2024 12/10/2019, , 12/10/2019, Additional history exists HEMOGLOBIN A1C 01/13/2025 07/14/2024, 08/0 07/2019, 07/22/2019, Additional history exists URINE MICROALBUMIN-CREATININ E RATIO (uACR) 06/16/2025 06/16/2024, 03/17/2018 HEPATITIS C SCREENING Completed 03/17/2018, 018 Pneumococcal Vaccine 50+ Completed 11/04/2019, 01/31 Medical Devices Implanted Type Area Source Water Protection Specialist Device Identifier Shelf Expiration Date Model / Serial / Lot Stent- 0 Implanted:Qty: 2 on 04/16/2019 by Brandon Keyes MD Stent Left: Heart Description:[employer] Lot#[id number] [id number] And Lot#[id number] [id number] Stent Xience Alma Everolimus Reagan 2.5x23mm - [id number] Implanted:Qty: 1 on 04/16/2019 by Brandon Keyes MD at [facility] [employer] [id number] / / [id number] Stent Xience Alma Everolimus Reagan 2.5x15mm - [id number] Implanted:Qty: 1 on 04/16/2019 by Brandon Keyes MD at [facility] [employer] [id number] / / [id number] Stnt Xience Alma Everolimus Reagan 2.5x23mm - [id number] Implanted:Qty: 1 on 05/01/2019 by Brandon Keyes MD at [facility] [employer] [id number] / / Procedures Procedure Name Priority Date/Time [...] (ABNORMAL) Hemoglobin A1c (07/14/2024 8:36 AM EDT) Hemoglobin A1C 8.10(H) 4.80 - 5.60 % [facility] Comment: Hemoglobin A1C Ranges: Increased Risk for Diabetes 5.7% to 6.4% Diabetes >= 6.5% Diabetic Goal < 7.0% Blood 07/14/2024 8:36 AM EDT 07/14/2024 Narrative [facility] ([facility]) - 07/15/2024 3:07 AM EDT Performed at: [address] [place] [id number] Leadership Coach: Tejinder Sanches MD, Phone: [phone] Patient Fasting: Y us Netta MEJIAS LAB BLOOD ORDERABLES Final Res ult [facility] ([facility]) [address] [place] [address], [place] [phone] [facility] [address] [place] [address], [place] [phone] * (ABNORMAL) POC Albumin/Creatinine Ratio Urine (06/16/2024 [...] with a HCV Nucleic Acid Amplification test ([id number]). Blood 03/17/2018 9:50 AM EST 03/17/2018 Narrative [facility] ([facility]BULATORY) - 03/18/2018 6:11 AM EST Performed at: [address] [place] [id number] Leadership Coach: Butch Del Toro PhD, Phone: [phone] Patient Fasting: N Netta MEJIAS LAB BLOOD ORDERABLES Final Res ult [facility] [address] [place] [address], [facility] [address] [place] [address], from Last 3 Months or Most Recently Relevant to Health Maintenance [place] [address] [place] [address] SUPP MEDICARE A & B Advance Directives * CPR (Attempt to Resuscitate) (Latest Code Status on File) Date Activated Date Inactivated Comments 04/15/2019 10:31 PM 04/17/2019 3:38 PM Question Answer Comments Code Status (Patient has no pulse and is not breathing): CPR (Attempt to Resuscitate) Medical Interventions (Patie nt has pulse or is breathing): Full Level Of Support Discussed With: Patient Care Teams Flat Clothier Relationship Specialty Start Date End Date Netta Mayfield [place] [address] PCP - General Physician Retort Engineer 02/26/18
[2025-02-02 09:02] VITALS: BP 182/67; PULSE 70; RESP 18; TEMP 36.7; O2SAT 98
[2025-02-02] MEDS: INCLISIRAN SODIUM 284 MG/1.5 ML SYRINGE SUBCUT (09:02)
== END 2025-02-02 23:59 | disposition home or self-care (01) ==
LOC: INF 08:56
PROVIDERS: Visit Provider Internal Medicine
DX: Z01.89 Encounter for other specified special examinations (principal)
CPT/HCPCS: 96372; J1306

== ENCOUNTER 2025-03-03 11:53 | Outpatient (CLI) | payer MEDICARE, BC, SELFPAY ==
--- OUTSIDE RECORDS SUMMARY | 2025-02-24 15:00 | XMS_ITS | Encounter Summary ---
Author Organization [facility] Address [address] [place] [id number] Care Team Providers Care Master In Chancery Name Role Phone Netta Mayfield Primary Care Provider [phone] Reason for Visit * Reason Comments Medicare Wellness-subsequent Will need l abs. Pt is fasting at least 10 hours Encounter Details Date Type Department Care Team (Late st Contact Info) Description 02/24/2025 3:00 PM EST Office Visit [facility] [address] [place] [address] Netta Mayfield PA [address] [place] [address] Medicare annual wellness visit, subsequent [...] was admitted within the past 365 days [facility] Current Medical Providers: Patient Care Team: Netta Mayfield PA as PCP - General (Physician Engineering Librarian) Outpatient Medications Prior to Visit Medication Sig [...] capsule 2 vitamin D (ERGOCALCIFEROL) 1.25 MG (76730 UT) capsule capsule Take 1 capsule by [...] INFLUENZA VACCINE Completed Pneumococcal Vaccine 50+ Completed [facility] Preventative Services Quick Reference Risk Factors Identified [...] She is under the care of a diet therapist, who has been providing refills for her medications. She isscheduled for a stress test next Saturday. She experienced heartburn, which was not accompanied byarm or back pain, but her blood pressure spiked to 212/103. She took nitroglycerin, which brought her blood pressure down. She is unsure whether she is taking Plavix or Brilinta. Her diet therapist didnot express any concerns about partial blockages [...] one eye and has not seen her director quality assurance in the past 6 months. She has [...] D 25 hydroxy Magnesium Fluzone High-Dose 65+yrs (7231-9598) Essential hypertension Orders: CBC w AUTO Differential [...] 25 hydroxy vitamin D (ERGOCALCIFEROL) 1.25 MG (26255 UT) capsule capsule; Take 1 capsule by [...] for influenza vaccination Orders: Fluzone High-Dose 65+yrs (5440-3557) Diagnoses and all orders for this visit: [...] hydroxy - vitamin D (ERGOCALCIFEROL) 1.25 MG (71553 UT) capsule capsule; Take 1 capsule by [...] for influenza vaccination - Fluzone High-Dose 65+yrs (1360-3073) I spent 15 minutes caring for Era [...] the AVS if appropriate. Patient or patient student services representative verbalized consent for the use of Ambient Listening during the visit with RANDELL Cardenas for chart documentation. 02/28/2025 15:02 EST documented in this encounter Plan of Treatment Upcoming Encounters Date Type Department Care Team (Late st Contact Info) Description 03/01/2026 11:00 AM EST Office Visit [facility] [address] [place], [place] [phone] Netta Mayfield PA [address] [place], [place] [phone] Scheduled Orders Name Type Priority Associated Diagnoses Orde r Schedule CBC w AUTO Differential Lab Panel Routine Medicare annual wellness visit, subsequent Essential hypertension Type 2 diabetes mellitus without complication, without long-term current use of insulin Coronary artery disease due to lipid rich plaque Ordered: 02/24/2025 Comprehensive metabolic panel Lab Routine Medicare annual wellness visit, subsequent Essential hypertension Type 2 diabetes mellitus without complication, without long-term current use of insulin Coronary artery disease due to lipid rich plaque Gastroesophageal reflux disease, unspecified whether esophagitis present Ordered: 02/24/2025 Lipid Panel Lab Routine Medicare annual wellness visit, subsequent Coronary artery disease due to lipid rich plaque Ordered: 02/24/2025 Hemoglobin A1c Lab Routine Medicare annual wellness visit, subsequent Type 2 diabetes mellitus without complication, without long-term current use of insulin Ordered: 02/24/2025 TSH Lab Routine Medicare annual wellness visit, subsequent Acquired hypothyroidism Ordered: 02/24/2025 T4, free Lab Routine Medicare annual wellness visit, subsequent Acquired hypothyroidism Ordered: 02/24/2025 Vitamin D 25 hydroxy Lab Routine Medicare annual wellness visit, subsequent Vitamin D insufficiency Ordered: 02/24/2025 Magnesium Lab Routine Medicare annual wellness visit, subsequent Medication monitoring encounter Ordered: 02/24/2025 Cologuard - Stool, Per Rectum Lab Routine Screening for malignant neoplasm of colon Expected: 02/24/2025 (Approximate), Expires: 05/27/2026 documented as of this encounter Visit Diagnoses Diagnosis Medicare annual [...] documented as of this encounter Care Teams Master In Chancery Relationship Specialty Start Date End Date Netta Mayfield PA [address] [place] [address] PCP - General Physician Engineering Librarian 02/26/18 documented as of this encounter
--- NOTE | 2025-03-03 | CA_ITS ---
APPROVED REPORT Exam: Pharmacologic Technologist: Louisa Kaur Stress Nurse: Sheila HALL, RN Ht: 5 ft 4 in Wt: 158 lbs BSA: 1.77 m2 HR: 72 bpm BP: 176/64 mmHg Indications: Chest pain, coronary artery disease, rule out ischemia Stress Test Details Test: Lexiscan HR Resting HR: 72 bpm Max Heart Rate (APMHR): 147.709583 bpm Max HR Achieved: 100 bpm Target HR (85% APMHR): 124.903824 bpm % of APMHR: 68.03 Recovery HR: 81 bpm BP Resting BP: 176.0/64.0 mmHg Max BP: 212.0/83.0 mmHg Recovery BP: 198.0/77.0 mmHg ECG Stress ECG Conclusion Lungs clear to auscultation prior to test start. Symptoms: Hypertension Arrhythmias/Ectopy: PAC ST-T Changes: Less than 0.[address] segment changes. Electronically signed by : Kierra Schmid MD 03/09/2025 13:06:49
--- OUTSIDE RECORDS SUMMARY | 2025-03-03 09:10 | XMS_ITS | Encounter Summary ---
[facility] [address] [place] [address] Care Team Providers Care Acupuncturist Name Role Phone Netta Mayfield Primary Care Provider [phone] Encounter Details Date Type Department Care Team (Late Contact Info) Description 03/03/2025 9:10 AM EST Lab [facility] MED[facility]INE [address] [place] [address] Social History Tobacco Use Types [...] Description 03/01/2026 11:00 AM EST Office Visit [facility] [address] [place] [address] Netta Mayfield PA [address] [place] [address] documented as of this encounter Visit Diagnoses Not on filedocumented in this encounter Additional Health Concerns Assessment Noted Time A fall risk assessment has been complete d for the patient 03/17/2018 8:51 AM EST documented as of this encounter Care Teams Acupuncturist Relationship Specialty Start Date End Date Netta Mayfield PA [address] [place] [address] PCP - General Physician Destination Coordinator 02/26/18 documented as of this encounter
--- OUTSIDE RECORDS SUMMARY | 2025-03-03 12:03 | XMS_ITS | Encounter Summary ---
Author Organization [facility] Address [address] [place] [address] Care Team Providers Care Hatchery Supervisor Name Role Phone Netta Mayfield Primary Care Provider [phone] Encounter Details Date Type Department Care Team (Latest Contact Info) Description 02/24/2025 Travel Social History Tobacco Use Types Packs/Day Years [...] on file documented as of this encounter Functional Status documented as of this encounter Plan of Treatment Upcoming Encounters Date Type Department Care Team (Late st Contact Info) Description 03/01/2026 11:00 AM EST Office Visit [facility] [address] [place] [address] Netta Mayfield PA [address] [place] [address] documented as of this encounter Visit Diagnoses Not on filedocumented in this encounter Additional Health Concerns Assessment Noted Time A fall risk assessment has been complete d for the patient 03/17/2018 8:51 AM EST documented as of this encounter Care Teams Hatchery Supervisor Relationship Specialty Start Date End Date Netta Mayfield PA [address] [place] [place] [address] PCP - General Physician Ap Operator 02/26/18 documented as of this encounter
--- OUTSIDE RECORDS SUMMARY | 2025-03-03 12:03 | XMS_ITS | Clinical Summary ---
Author Organization [facility] Address [address] [place] [address] Care Team Providers Care Operations Intelligence Name Role Phone Netta Mayfield Primary Care Provider Allergies Active Allergy Reactions Criticality Noted Date Comments Penicillins Other (See Comments) 02/26/2018 Reaction when a child Medications aspirin 81 MG EC tablet Take 1 tablet by mouth Daily. 30 tablet 04/18/19 20 Active glucose blood test stripIndications: Uncontrolled type 2 diabetes mellitus with hyperglycemia Check sugars daily and as needed 30 each 05/06/19 20 Active cyclobenzaprine (FLEXERIL) 5 MG tabletIndications :Acute right-sided low back pain without sciatica Take 1-2 tablets by mouth 3 (Three) Times a Day As Needed for Muscle Spasms. 30 tablet 07/22/19 20 Active irbesartan (AVAPRO) 75 MG tablet Take 1 tablet by mouth Daily. 06/10/19 25 Active metoprolol succinate XL (TOPROL-XL) 25 MG 24 hr tablet Take 0.5 tablets by mouth Daily. 06/10/19 25 Active ranolazine (RANEXA) 500 MG 12 hr tablet Take 1 tablet by mouth Every 12 (Twelve) Hours. 06/10/19 25 Active Brilinta 90 MG tablet tablet Take 1 tablet by mouth Every 12 (Twelve) Hours. 06/10/19 25 Active nitroglycerin (NITROSTAT) 0.4 MG SL tabletIndications :Coronary artery disease due to lipid rich plaque 1 under the tongue as needed for angina, may repeat q5mins for up three doses 100 tablet 06/17/19 25 Active carvedilol (COREG) 25 MG tablet Take 1 tablet by mouth 2 (Two) Times a Day With Meals. 11/19/19 25 Active clopidogrel (PLAVIX) 75 MG tablet 01/08/20 25 Active levothyroxine (SYNTHROID, LEVOTHROID) 75 MCG tablet Take 1 tablet by mouth Daily. 12/25/19 25 Active metFORMIN (GLUCOPHAGE) 500 MG tabletIndications :Type 2 diabetes mellitus without complication, without long-term current use of insulin Take 1 tablet by mouth Every 12 (Twelve) Hours. 180 tablet 3 02/25/20 25 Active atorvastatin (LIPITOR) 40 MG tabletIndications :Coronary artery disease due to lipid rich plaque Take 1 tablet by mouth Every Night. 90 tablet 3 02/25/20 25 Active vitamin D (ERGOCALCIFEROL) 1.25 MG (91400 UT) capsule capsuleIndication s:Vitamin D insufficiency Take 1 capsule by mouth 1 (One) Time Per Week. 5 capsule 5 02/25/20 25 Active pantoprazole (Protonix) 20 MG EC tabletIndications :Gastroesophageal reflux disease, unspecified whether esophagitis present Take 1 tablet by mouth Daily. 90 tablet 3 02/25/20 25 Active omeprazole (PrilOSEC) 20 MG capsuleIndication s:Gastroesophagea l reflux disease, unspecified whether esophagitis present Take 1 capsule by mouth Daily. 90 capsule 2 05/05/19 21 025 Discontinued levothyroxine (SYNTHROID, LEVOTHROID) 50 MCG tabletIndications :Acquired hypothyroidism Take 1 tablet by mouth Daily. 90 tablet 1 07/15/19 25 025 Discontinued atorvastatin (LIPITOR) 40 MG tabletIndications :Coronary artery disease due to lipid rich plaque Take 1 tablet by mouth Every Night. 90 tablet 1 07/15/19 25 025 Discontinued(Re order) metFORMIN (GLUCOPHAGE) 500 MG tabletIndications :Type 2 diabetes mellitus without complication, without long-term current use of insulin Take 1 tablet by mouth Every 12 (Twelve) Hours. 180 tablet 1 07/15/19 25 025 Discontinued(Re order) vitamin D (ERGOCALCIFEROL) 1.25 MG (85529 UT) capsule capsuleIndication s:Vitamin D insufficiency Take 1 capsule by mouth 1 (One) Time Per Week. 5 capsule 5 07/30/19 25 025 Discontinued(Re order) Active Problems Problem Noted Date Diagnosed Date Coronary artery disease due to lipid rich plaque 06/16/2024 Assessment & Plan (02/28/2025 3:16 PM EST): Orders: CBC w AUTO Differential Comprehensive metabolic panel Lipid Panel atorvastatin (LIPITOR) 40 MG tablet; Take 1 tablet by mouth Every Night. Unstable angina 04/22/2019 Overview (04/22/2019): Added automatically from request for surgery [id number] S/P cardiac catheterization 04/17/2019 Hypothyroidism 04/16/2019 Assessment & Plan (02/28/2025 3:16 PM EST): Orders: TSH T4, free Essential hypertension 04/15/2019 Assessment & Plan (02/28/2025 3:16 PM EST): Orders: CBC w AUTO Differential Comprehensive metabolic panel NSTEMI (non-ST elevated myocardial infarction) 0 04/15/2019 Type 2 diabetes mellitus wit hout complication, without long-term current use of insulin 02/26/2018 Assessment & Plan (02/28/2025 3:16 PM EST): Orders: CBC w AUTO Differential Comprehensive metabolic panel Hemoglobin A1c metFORMIN (GLUCOPHAGE) 500 MG tablet; Take 1 tablet by mouth Every 12 (Twelve) Hours. Gastroesophageal reflux disease 02/26/2018 Assessment & Plan (02/28/2025 3:16 PM EST): Orders: Comprehensive metabolic panel pantoprazole (Protonix) 20 MG EC tablet; Take 1 tablet by mouth Daily. BMI 30.0-30.9,adult 02/26/2018 Resolved Problems Problem Noted Date Diagnosed Date Resolved Date Tobacco abuse 04/15/2019 04/23/2019 Accelerated hypertension 04/15/2019 Chest pain 04/15/2019 04/17/2019 Cigarette nicotine dependenc e without complication 02/26/2018 11/04/2019 Encounters Date Type Department Care Team Description 03/03/2025 9:10 AM EST Lab [facility] [address] [place] [phone] 03/03/2025 Travel 02/24/2025 3:00 PM EST Office Visit [facility] [address] [place] [address] Netta Mayfield PA Medicare annual wellness visit, subsequent (Primary Dx); Essential hypertension; Type 2 diabetes mellitus without complication, without long-term current use of insulin; Coronary artery disease due to lipid rich plaque; Vitamin D insufficiency; Acquired hypothyroidism; Medication monitoring encounter; Gastroesophageal reflux disease, unspecified whether esophagitis present; Screening for malignant neoplasm of colon; Need for influenza vaccination 02/24/2025 Travel from Last 3 Months Immunizations Immunization Administration Dates Next Due Fluzone High-Dose 65+YRS 02/24/2025,12/10/2019,1 05/02/2017 Fluzone High-Dose 65+yrs 12/10/2019 Pneumococcal Conjugate 13-Valent (PCV13) 018 Pneumococcal Polysaccharide [...] F) 02/24/2025 2:31 PM EST Respiratory Rate 14 06/16/2024 11:41 AM EDT Oxygen Saturation 97% 02/24/2025 2:31 PM EST Inhaled Oxygen Concentration - - Weight 72.1 kg (159 lb) 02/24/2025 2:31 PM EST Height 170.2 cm (5' 7 ) 02/24/2025 2:31 PM EST Body Mass Index 24.9 02/24/2025 2:31 PM EST Plan of Treatment Upcoming Encounters Date Type Department Care Team (Late st Contact Info) Description 03/01/2026 11:00 AM EST Office Visit [facility] [address] [place] [address] Netta Mayfield PA [address] [place] [address] Health Maintenance Due Date Last Done Comments DXA SCAN 1951 TDAP/TD VACCINES (1 - Tdap) 1970 COLOGUARD 1996 COLON CANCER SCREENING [address] COLONOGRAPHY 1996 FECAL OCCULT BLOOD TEST 1996 FIT Testing (1 year) 1996 ZOSTER VACCINE (1 of 2) 2001 DIABETIC EYE EXAM 12/31/2019 12/30/2018, (Patient-Reported (Performed Externally)) DIABETIC FOOT EXAM 11/03/2020 11/04/2019, 0 11/04/2019, 11/04/2019 COLONOSCOPY 04/01/2022 04/01/2012 COLORECTAL CANCER SCREENING 04/01/2022 HEMOGLOBIN A1C 01/13/2025 07/14/2024, 08/0 07/2019, 07/22/2019, Additional history exists URINE MICROALBUMIN-CREATININE RATIO (uACR) 06/16/2025 06/16/2024, 03/17/2018 COVID-19 Vaccine (3 - Moderna risk series) 08/24/2025 06/12/2020, 05/15/2020 Postponed from 07/10/2020 (Patient Refused) ANNUAL WELLNESS VISIT 02/24/2026 02/24/2025 , 02/24/2025, 11/04/2019, Additional history exists MAMMOGRAM 02/24/2026 04/07/2021, 07/2019, 06/20/2018, Additional history exists Postponed from 04/07/2023 (Patient Refused) HEPATITIS C SCREENING Completed 03/17/2018, 018 Pneumococcal Vaccine 50+ Completed 11/04/2019, 01/31 INFLUENZA VACCINE Completed 02/24/2025, , 12/10/2019, Additional history exists Medical Devices Implanted Type Area Forgeman Helper Device Identifier Shelf Expiration Date Model / Serial / Lot Stent- 0 Implanted:Qty: 2 on 04/16/2019 by Brandon Keyes MD Stent Left: Heart Description:[employer] Lot#[id number] Ref#[id number] And Lot#[id number] Ref#[id number] Stent Xience Alma Everolimus Reagan 2.5x23mm - [id number] Implanted:Qty: 1 on 04/16/2019 by Brandon Keyes MD at [facility] [employer] [id number] / / [id number] Stent Xience Alma Everolimus Reagan 2.5x15mm - [id number] Implanted:Qty: 1 on 04/16/2019 by Brandon Keyes MD at [facility] [employer] [id number] / / [id number] Stnt Xience Alma Everolimus Reagan 2.5x23mm - [id number] Implanted:Qty: 1 on 05/01/2019 by Brandon Keyes MD at [facility] [employer] [id number] / / Procedures Procedure Name Priority Date/Time [...] - 07/15/2024 3:07 AM EDT Performed at: [address] [place] [id number] Brazing Machine Feeder: Tejinder Sanches MD, Phone: [phone] Patient Fasting: Y us Netta MEJIAS LAB BLOOD ORDERABLES Final Res ult [facility] ([facility]) [address] [place] [address], [facility] [address] [place] [address], * (ABNORMAL) POC Albumin/Creatinine Ratio Urine (06/16/2024 [...] or areas of architectural distortion are present. Netta MEJIAS IMG MAMMOGRAPHY ORDERABLES Fin al Result * SCANNED - INFLUENZA (12/10/2019) Netta MEJIAS CHART REVIEW TABS Final Res ult * Hepatitis C antibody (03/17/2018 9:50 AM EST) Hep C Virus Ab 0.2 0.0 - 0.9 s/co ratio [facility] Comment: Negative: < 0.8 Indeterminate: 0.8 - 0.9 Positive: > 0.9 The CDC recommends that a positive HCV antibody result be followed up with a HCV Nucleic Acid Amplification test (371231). Blood 03/17/2018 9:50 AM EST 03/17/2018 Narrative [facility]) - 03/18/2018 6:11 AM EST Performed at: [facility] [address] [place], [place] [id number] Brazing Machine Feeder: Butch Del Toro PhD, Phone: [phone] Patient Fasting: N Netta MEJIAS LAB BLOOD ORDERABLES Final Res ult [facility] ([facility]) [address] [place] [address], [place] [phone] [facility] [address] [place] [address], from Last 3 Months or Most Recently Relevant to Health Maintenance Insurance [facility] MEDICARE A & B Advance [...] Of Support Discussed With: Patient Care Teams Operations Intelligence Relationship Specialty Start Date End Date Netta Mayfield PA [address] [place] [address] PCP - General Physician Bioengineer 02/26/18
--- OUTSIDE RECORDS SUMMARY | 2025-03-03 12:03 | XMS_ITS | Encounter Summary ---
Author Organization [facility] Address [address] [place] [id number] Care Team Providers Care Refrigerated National Truck Driver Name Role Phone Netta Mayfield Primary Care Provider [phone] Encounter Details Date Type Department Care Team (Latest Contact Info) Description 03/03/2025 Travel Social History Tobacco Use Types Packs/Day [...] Description 03/01/2026 11:00 AM EST Office Visit [facility] [address] [place] [address] Netta Mayfield PA [address] [place] [address] documented as of this encounter Visit Diagnoses Not on filedocumented in this encounter Additional Health Concerns Assessment Noted Time A fall risk assessment has been complete d for the patient 03/17/2018 8:51 AM EST documented as of this encounter Care Teams Refrigerated National Truck Driver Relationship Specialty Start Date End Date Netta Mayfield PA [address] [place] [address] PCP - General Physician Home Health Nurse 02/26/18 documented as of this encounter
--- OUTSIDE RECORDS SUMMARY | 2025-03-03 12:03 | XMS_ITS | Encounter Summary ---
[facility] Address [address] [place] [address] Care Team Providers Care Brick Tester Name Role Phone Netta Mayfield Primary Care Provider Encounter Details Date Type Department Care Team (Late Contact Info) Description 07/29/2024 Results Follow-Up [facility] [address] [place] [address] Netta Mayfield PA [address] [place] [place] [address] Social History Tobacco Use Types Packs/Day Years [...] Description 03/01/2026 11:00 AM EST Office Visit [facility] [address] [place] [phone] Netta Mayfield PA [address] [place] [address] Scheduled Orders Name Type Priority [...] documented as of this encounter Care Teams Brick Tester Relationship Specialty Start Date End Date Netta Mayfield PA [address] [place] [address] PCP - General Physician Cloth Shrinker 02/26/18 documented as of this encounter
--- NOTE | 2025-03-03 12:30 | NM_ITS ---
APPROVED REPORT Exam: Nuclear Stress Test Indication: fatigue Patient Location: Outpatient Stress Tech: Louisa Kaur [place] Tech:Maris FrancisDAWIT, RT (R)(N) Ht: 5 ft 7 in Wt: 158 lbs Bra Size: 40c HR: 74 bpm BP: 176/64 mmHg BSA: 1.83 m2 TID: 1.12 BMI: 24.7 History: fatigue Procedure: Patient received 0.4 mg of intravenous Lexiscan, resting heart rate 74 bpm, resting blood pressure 176/64 mmHg, with Lexiscan maximum heart rate achieved was 100 bpm which is 85 % of the maximum predicted heart rate and blood pressure was 212/83 mmHg. With Lexiscan, patient denied any complaint of chest pain. Cardiac Stress and Resting SPECT Images: Cardiac Stress and Resting SPECT images were obtained using technetium 99m Myoview 32.9 mCi stress and 10.16 mCi at rest. Resting and stress imaging in supine and prone positions demonstrate a medium sized, moderate, reversible perfusion defect in the mid anterior LV wall. Gated imaging demonstrates moderate reduction global LV systolic function. LVEF is calculated at 39%. Conclusion: Medium sized, moderate, reversible perfusion defect in the mid anterior LV wall. Findings are suggestive of reversible ischemia. Gated imaging demonstrates moderate reduction global LV systolic function. LVEF is calculated at 39%. Electronically signed by : Kierra Schmid MD 03/09/2025 12:54:28
[2025-03-03 13:05] VITALS: BP 176/64; PULSE 72; RESP 16
[2025-03-03] MEDS: ISOTOPE MYOVIEW (PER STUDY) 1 DOSE IV (13:16)
[2025-03-03] MEDS: SODIUM CHLORIDE 0.9% 10ML SYR (RAD ONLY) 10 ML IV ×2 (13:16)
[2025-03-03 13:30] VITALS: BMI 27.1
--- NOTE | 2025-03-03 14:24 | PC.NURSE ---
1340-clonidine 0.1 mg po bp 211/73 1415-clonidine 0.1 mg po bp 200/80
--- NOTE | 2025-03-03 14:55 | PC.NURSE ---
1450-BP 202 Notified Abdi Chaudhry PAC-Ok to discharge to home, patient should take her regular homes meds sultana if bp remains greater than 200 systolic she is to call cardiology or go to ER. Patient agreeable.
== END 2025-03-03 23:59 | disposition home or self-care (01) ==
LOC: RAD 11:56
PROVIDERS: PCP Physician Assistant; Visit Provider Internal Medicine
DX: I49.1 Atrial premature depolarization (principal); I25.118 Atherosclerotic heart disease of native coronary artery with other forms of angina pectoris; I10 Essential (primary) hypertension; E78.49 Other hyperlipidemia; R94.39 Abnormal result of other cardiovascular function study
CPT/HCPCS: 78452; 93017; 93018; A9502; J2785

== ENCOUNTER 2025-03-08 07:55 | Outpatient (CLI) | payer MEDICARE, BC, SELFPAY ==
--- OUTSIDE RECORDS SUMMARY | 2025-02-24 15:00 | XMS_ITS | Encounter Summary ---
Author Organization [facility] Address [address] [place] [id number] Care Team Providers Care Fire Dispatcher Name Role Phone Netta Mayfield Primary Care Provider [phone] Reason for Visit * Reason Comments Medicare Wellness-subsequent Will need l abs. Pt is fasting at least 10 hours Encounter Details Date Type Department Care Team (Late st Contact Info) Description 02/24/2025 3:00 PM EST Office Visit [facility] [address] [place] [address] Netta Mayfield PA [address] [place] [address] Medicare annual wellness visit, subsequent (Primary Dx); Essential hypertension; Type 2 diabetes mellitus without complication, without long-term current use of insulin; Coronary artery disease due to lipid rich plaque; Vitamin D insufficiency; Acquired hypothyroidism; Medication monitoring encounter; Gastroesophageal reflux disease, unspecified whether esophagitis present; Screening for malignant neoplasm of colon; Need for influenza vaccination Social History Tobacco Use Types Packs/Day Years [...] Answer Date Recorded Patient Health Questionnaire-2 Score 1 02/24/2025 Comments No Sex and Gender Information Value Date Recorded Sex Assigned at Not on file Legal Sex Female 12:59 PM EST Gender Identity Not on file Sexual Orientation Not on file documented as of this encounter Last Filed Vital Signs Vital Sign Reading Time Taken Comments Blood Pressure 142/60 02/24/2025 2:31 PM EST Pulse 75 02/24/2025 2:31 PM EST Temperature 36.2 C (97.1 F) 02/24/2025 2:31 PM EST Respiratory Rate - - Oxygen Saturation 97% 02/24/2025 2:31 PM EST Inhaled Oxygen Concentration - - Weight 72.1 kg (159 lb) 02/24/2025 2:31 PM EST Height 170.2 cm (5' 7 ) 02/24/2025 2:31 PM EST Body Mass Index 24.9 02/24/2025 2:31 PM EST documented in this encounter Functional Status documented as of this encounter Progress Notes * Netta Mayfield PA - 02/24/2025 3:00 PM ESTAssociated Problem(s): Essential hypertension Orders: CBC w AUTO Differential Comprehensive metabolic panel * Netta Mayfield PA - 02/24/2025 3:00 PM ESTAssociated Problem(s): Type 2 diabetes mellitus without complication, without long-term current useof insulin Orders: CBC w AUTO Differential Comprehensive metabolic panel Hemoglobin A1c metFORMIN (GLUCOPHAGE) 500 MG tablet; Take 1 tablet by mouth Every 12 (Twelve) Hours. * Netta Mayfield PA - 02/24/2025 3:00 PM ESTAssociated Problem(s): Coronary artery disease due to lipid rich plaque Orders: CBC w AUTO Differential Comprehensive metabolic panel Lipid Panel atorvastatin (LIPITOR) 40 MG tablet; Take 1 tablet by mouth Every Night. * Netta Mayfield PA - 02/24/2025 3:00 PM ESTAssociated Problem(s): Hypothyroidism Orders: TSH T4, free * Netta Mayfield PA - 02/24/2025 3:00 PM ESTAssociated Problem(s): Gastroesophageal reflux disease Orders: Comprehensive metabolic panel pantoprazole (Protonix) 20 MG EC tablet; Take 1 tablet by mouth Daily. * Netta Mayfield PA - 02/24/2025 3:00 PM EST Images from the original note were not included. Subjective The ABCs of the Annual Wellness Visit Medicare Wellness Visit Era Buckley is a 74 y.o. patient who presents for a Medicare Wellness Visit. The following portions of the patient's history were reviewed and updated as appropriate: allergies, current medications, past family history, past medical history, past social history, past surgical history, and problem list. Compared to one year ago, the patient's physical health is the same. Compared to one year ago, the patient's mental health is worse. Recent Hospitalizations: She was admitted within the past [address] [facility] Current Medical Providers: Patient Care Team: Netta Mayfield PA as PCP - General (Physician Senior Military Analyst) Outpatient Medications Prior to Visit Medication Sig Dispense Refill aspirin 81 MG EC tablet Take 1 tablet by mouth Daily. 30 tablet 11 carvedilol (COREG) 25 MG tablet Take 1 tablet by mouth 2 (Two) Times a Day With Meals. clopidogrel (PLAVIX) 75 MG tablet cyclobenzaprine (FLEXERIL) 5 MG tablet Take 1-2 tablets by mouth 3 (Three) Times a Day As Needed for Muscle Spasms. 30 tablet 0 glucose blood test strip Check sugars daily and as needed 30 each 11 irbesartan (AVAPRO) 75 MG tablet Take 1 tablet by mouth Daily. levothyroxine (SYNTHROID, LEVOTHROID) 75 MCG tablet Take 1 tablet by mouth Daily. (Patient taking differently: Take 1 tablet by mouth Daily. Pt is on 112 mg) metoprolol succinate XL (TOPROL-XL) 25 MG 24 hr tablet Take 0.5 tablets by mouth Daily. nitroglycerin (NITROSTAT) 0.4 MG SL tablet 1 under the tongue as needed for angina, may repeat q5mins for up three doses 100 tablet 11 atorvastatin (LIPITOR) 40 MG tablet Take 1 tablet by mouth Every Night. 90 tablet 1 metFORMIN (GLUCOPHAGE) 500 MG tablet Take 1 tablet by mouth Every 12 (Twelve) Hours. 180 tablet 1 omeprazole (PrilOSEC) 20 MG capsule Take 1 capsule by mouth Daily. 90 capsule 2 vitamin D (ERGOCALCIFEROL) 1.25 MG (80589 UT) capsule capsule Take 1 capsule by mouth 1 (One) Time Per Week. 5 capsule 5 Brilinta 90 MG tablet tablet Take 1 tablet by mouth Every 12 (Twelve) Hours. ranolazine (RANEXA) 500 MG 12 hr tablet Take 1 tablet by mouth Every 12 (Twelve) Hours. levothyroxine (SYNTHROID, LEVOTHROID) 50 MCG tablet Take 1 tablet by mouth Daily. 90 tablet 1 No facility-administered medications prior to visit. No opioid medication identified on active medication list. I have reviewed chart for other potential high risk medication/s and harmful drug interactions in the elderly. Aspirin is on active medication list. Aspirin use is indicated based on review of current medical condition/s. Pros and cons of this therapy have been discussed today. Benefits of this medication outweigh potential harm. Patient has been encouraged to continue taking this medication. . Patient Active Problem List Diagnosis Type 2 diabetes mellitus without complication, without long-term current use of insulin Gastroesophageal reflux disease BMI 30.0-30.9,adult Essential hypertension NSTEMI (non-ST elevated myocardial infarction) Hypothyroidism S/P cardiac catheterization Unstable angina Coronary artery disease due to lipid rich plaque Advance Care Planning Advance Directive is not on file. ACP discussion was held with the patient during this visit. Patient has an advance directive (not in EMR), copy requested. Objective Vitals: 02/24/25 1431 BP: 142/60 Pulse: 75 Temp: 97.1 ??F (36.2 ??C) SpO2: 97% Weight: 72.1 kg (159 lb) Height: 170.2 cm (67 ) PainSc: 0-No pain Estimated body mass index is 24.9 kg/m?? as calculated from the following: Height as of this encounter: 170.2 cm (67 ). Weight as of this encounter: 72.1 kg (159 lb). BMI is within normal parameters. No other follow-up for BMI required. Does the patient have evidence of cognitive impairment? No Health Risk Assessment Smoking Status: Social History Tobacco Use Smoking Status Former Current packs/day: 0.00 Types: Cigarettes Quit date: 03/2019 Years since quittin.0 Smokeless Tobacco Never Alcohol Consumption: Social History Substance and Sexual Activity Alcohol Use No Fall Risk Screen STEADI Fall Risk Assessment was completed, and patient is at LOW risk for falls.Assessment completed on:02/24/2025 Depression Screening Little interest or pleasure in doing things? Not at all Feeling down, depressed, or hopeless? Several days PHQ-2 Total Score 1 Health Habits and Functional and Cognitive Screenin02/24/2025 2:39 PM Functional & Cognitive Status Do you have difficulty preparing food and eating? No Do you have difficulty bathing yourself, getting dressed or grooming yourself? No Do you have difficulty using the toilet? No Do you have difficulty moving around from place to place? No Do you have trouble with steps or getting out of a bed or a chair? No Current Diet Well Balanced Diet Dental Exam Not up to date Eye Exam Not up to date Exercise (times per week) 2 times per week Current Exercises Include Walking Do you need help using the phone? No Are you deaf or do you have serious difficulty hearing? No Do you need help to go to places out of walking distance? No Do you need help shopping? No Do you need help preparing meals? No Do you need help with housework? No Do you need help with laundry? No Do you need help taking your medications? No Do you need help managing money? No Do you ever drive or ride in a car without wearing a seat belt? No Have you felt unusual fatigue (could be tiredness), stress, anger or loneliness in the last month? Yes Who do you live with? Alone If you need help, do you have trouble finding someone available to you? No Have you been bothered in the last four weeks by sexual problems? No Do you have difficulty concentrating, remembering or making decisions? Yes Age-appropriate Screening Schedule: Refer to the list below for future screening recommendations based on patient's age, sex and/or medical conditions. Orders for these recommended tests are listed in the plan section. The patient has been provided with a written plan. Health Maintenance List Health Maintenance Topic Date Due DXA SCAN Never done TDAP/TD VACCINES (1 - Tdap) Never done ZOSTER VACCINE (1 of 2) Never done DIABETIC EYE EXAM 12/31/2019 DIABETIC FOOT EXAM 11/03/2020 COLORECTAL CANCER SCREENING 04/01/2022 HEMOGLOBIN A1C 01/13/2025 COVID-19 Vaccine (3 - Moderna risk series) 08/24/2025 (Originally 07/10/2020) MAMMOGRAM 02/24/2026 (Originally 04/07/2023) URINE MICROALBUMIN-CREATININE RATIO (uACR) 06/16/2025 ANNUAL WELLNESS VISIT 02/24/2026 HEPATITIS C SCREENING Completed INFLUENZA VACCINE Completed Pneumococcal Vaccine 50+ Completed [facility] Preventative Services Quick Reference Risk Factors Identified During Encounter None Identified The above risks/problems have been discussed with the patient. Pertinent information has been shared with the patient in the After Visit Summary. An After Visit Summary and PPPS were made available to the patient. Follow Up: Next Medicare Wellness visit to be scheduled in 1 year. Additional E&M Note during same encounter follows: Patient has additional, significant, and separately identifiable condition(s)/problem(s) that require work above and beyond the Medicare Wellness Visit Chief Complaint Medicare Wellness-subsequent (Will need labs. Pt is fasting at least 10 hours) Subjective HPI Era is also being seen today for additional medical problem/s. The patient is a 74-year-old female who presents for a subsequent Medicare wellness visit. She has coronary artery disease, hyperlipidemia, hypothyroidism, GERD, diabetes, and hypertension. Prior to her hospital follow-up in 05/2024 for coronary artery disease, she had been off all of her chronic medications. She is uncertain about the dosage of levothyroxine she has been taking. She has been fasting since 3:00 AM today. She is under the care of a director internal control, who has been providing refills for her medications. She isscheduled for a stress test next Saturday. She experienced heartburn, which was not accompanied byarm or back pain, but her blood pressure spiked to 212/103. She took nitroglycerin, which brought her blood pressure down. She is unsure whether she is taking Plavix or Brilinta. Her director internal control didnot express any concerns about partial blockages during her last stent placement. She is compliant with her metformin regimen and takes vitamin D supplements weekly. She reports no issues with gait or balance and has not experienced any falls. She is not physically active outside the house due to cold weather. She has an advanced directive in place. She has been managing her diabetes well and has been making efforts to maintain a balanced diet. She has macular degeneration in one eye and has not seen her partner management consultant in the past 6 months. She has been experiencing sleep disturbances, often waking up too early and unable to return to sleep. She has been experiencing grief following the loss of her , with whom she was for 26years. She lives alone but has a strong support system from her son, who lives nearby, and her daughter, who visits several times a week. She occasionally experiences mild depression but feels she iscoping as well as can be expected. Social History: Marital Status: Diet: She has been making efforts to maintain a balanced diet. Sleep: She has been experiencing sleep disturbances, often waking up too early and unable to returnto sleep. Living Condition: Lives alone Objective Vital Signs: BP 142/60 Pulse 75 Temp 97.1 ??F (36.2 ??C) Ht 170.2 cm (67 ) Wt 72.1 kg (159 lb) SpO2 97% BMI 24.90 kg/m?? Physical Exam Vitals reviewed. Constitutional: Appearance: Normal appearance. Cardiovascular: Rate and Rhythm: Normal rate and regular rhythm. Pulmonary: Effort: Pulmonary effort is normal. Breath sounds: Normal breath sounds. Neurological: Mental Status: She is alert and oriented to person, place, and time. Respiratory: Clear to auscultation bilaterally. Results Assessment and Plan Additional age appropriate preventative wellness advice topics were discussed during today's preventative wellness exam(some topics already addressed during AWV portion of the note above): Physical Activity: Advised cardiovascular activity 150 minutes per week as tolerated. (example brisk walk for 30 minutes, 5 days a week). Nutrition: Discussed nutrition plan with patient. Information shared in after visit summary. Goal is for a well balanced diet to enhance overall health. Healthy Weight: Discussed current and goal BMI with patient. Steps to attain this goal discussed. Information shared in after visit summary. 1. Coronary Artery Disease: - She experienced a significant increase in blood pressure to 212/103, which was managed with nitroglycerin. - She is scheduled for a stress test next Saturday to ensure her condition remains stable. - She is advised to verify which blood thinner she is currently taking (Plavix or Brilinta) and inform the office accordingly. 2. Hyperlipidemia: - Her cholesterol medication will be refilled to ensure continuity of care. 3. Hypothyroidism: - She has been taking levothyroxine inconsistently. - Her thyroid levels will be checked today to adjust the dosage if necessary. 4. Gastroesophageal Reflux Disease (GERD): - A prescription for pantoprazole will be provided, to be taken in the morning, ensuring it is spaced out from her thyroid medication. 5. Diabetes Mellitus: - She has been compliant with her metformin regimen. - Her blood sugar levels will be checked today to monitor her diabetes management. 6. Hypertension: - Her blood pressure was noted to be 142/60, which is close to her baseline. - She is advised to continue monitoring her blood pressure at home. 7. Macular Degeneration: - She has not seen her eye doctor in the past 6 months and is advised to schedule an appointment for follow-up. 8. Health Maintenance: - She is up to date with her pneumonia vaccinations, having received doses in 2018 and 2019. - Her last mammogram was conducted in 2021, with normal results. - She is advised to continue self-breast examinations and report any new findings for further imaging. - A comprehensive lab panel will be ordered today. - She will receive her influenza vaccine during this visit. - She is encouraged to undergo Cologuard testing for colon cancer screening. Medicare annual wellness visit, subsequent Orders: CBC w AUTO Differential Comprehensive metabolic panel Lipid Panel Hemoglobin A1c TSH T4, free Vitamin D 25 hydroxy Magnesium Fluzone High-Dose 65+yrs ([id number]) Essential hypertension Orders: CBC w AUTO Differential Comprehensive metabolic panel Type 2 diabetes mellitus without complication, without long-term current use of insulin Orders: CBC w AUTO Differential Comprehensive metabolic panel Hemoglobin A1c metFORMIN (GLUCOPHAGE) 500 MG tablet; Take 1 tablet by mouth Every 12 (Twelve) Hours. Coronary artery disease due to lipid rich plaque Orders: CBC w AUTO Differential Comprehensive metabolic panel Lipid Panel atorvastatin (LIPITOR) 40 MG tablet; Take 1 tablet by mouth Every Night. Vitamin D insufficiency Orders: Vitamin D 25 hydroxy vitamin D (ERGOCALCIFEROL) 1.25 MG (93223 UT) capsule capsule; Take 1 capsule by mouth 1 (One) TimePer Week. Acquired hypothyroidism Orders: TSH T4, free Medication monitoring encounter Orders: Magnesium Gastroesophageal reflux disease, unspecified whether esophagitis present Orders: Comprehensive metabolic panel pantoprazole (Protonix) 20 MG EC tablet; Take 1 tablet by mouth Daily. Screening for malignant neoplasm of colon Orders: Cologuard - Stool, Per Rectum; Future Need for influenza vaccination Orders: Fluzone High-Dose 65+yrs ([id number]) Diagnoses and all orders for this visit: 1. Medicare annual wellness visit, subsequent (Primary) - CBC w AUTO Differential - Comprehensive metabolic panel - Lipid Panel - Hemoglobin A1c - TSH - T4, free - Vitamin D 25 hydroxy - Magnesium - Fluzone High-Dose 65+yrs () 2. Essential hypertension Assessment & Plan: Orders: CBC w AUTO Differential Comprehensive metabolic panel Orders: - CBC w AUTO Differential - Comprehensive metabolic panel 3. Type 2 diabetes mellitus without complication, without long-term current use of insulin Assessment & Plan: Orders: CBC w AUTO Differential Comprehensive metabolic panel Hemoglobin A1c metFORMIN (GLUCOPHAGE) 500 MG tablet; Take 1 tablet by mouth Every 12 (Twelve) Hours. Orders: - CBC w AUTO Differential - Comprehensive metabolic panel - Hemoglobin A1c - metFORMIN (GLUCOPHAGE) 500 MG tablet; Take 1 tablet by mouth Every 12 (Twelve) Hours. Dispense: 180 tablet; Refill: 3 4. Coronary artery disease due to lipid rich plaque Assessment & Plan: Orders: CBC w AUTO Differential Comprehensive metabolic panel Lipid Panel atorvastatin (LIPITOR) 40 MG tablet; Take 1 tablet by mouth Every Night. Orders: - CBC w AUTO Differential - Comprehensive metabolic panel - Lipid Panel - atorvastatin (LIPITOR) 40 MG tablet; Take 1 tablet by mouth Every Night. Dispense: 90 tablet; Refill: 3 5. Vitamin D insufficiency - Vitamin D 25 hydroxy - vitamin D (ERGOCALCIFEROL) 1.25 MG (37711 UT) capsule capsule; Take 1 capsule by mouth 1 (One) Time Per Week. Dispense: 5 capsule; Refill: 5 6. Acquired hypothyroidism Assessment & Plan: Orders: TSH T4, free Orders: - TSH - T4, free 7. Medication monitoring encounter - Magnesium 8. Gastroesophageal reflux disease, unspecified whether esophagitis present Assessment & Plan: Orders: Comprehensive metabolic panel pantoprazole (Protonix) 20 MG EC tablet; Take 1 tablet by mouth Daily. Orders: - Comprehensive metabolic panel - pantoprazole (Protonix) 20 MG EC tablet; Take 1 tablet by mouth Daily. Dispense: 90 tablet; Refill: 3 9. Screening for malignant neoplasm of colon - Cologuard - Stool, Per Rectum; Future 10. Need for influenza vaccination - Fluzone High-Dose 65+yrs ([id number]) I spent 15 minutes caring for Era on this date of service. This time includes time spent by me inthe following activities:preparing for the visit, reviewing tests, obtaining and/or reviewing a separately obtained history, performing a medically appropriate examination and/or evaluation , counseling and educating the patient/family/caregiver, and documenting information in the medical record Follow Up No follow-ups on file. Patient was given instructions and counseling regarding her condition or for health maintenance advice. Please see specific information pulled into the AVS if appropriate. Patient or patient senior customer service representative verbalized consent for the use of Ambient Listening during the visit with RANDELL Cardenas for chart documentation. 02/28/2025 15:02 EST documented in this encounter Plan of Treatment Upcoming Encounters Date Type Department Care Team (Late st Contact Info) Description 03/01/2026 11:00 AM EST Office Visit [facility] [address], [place] [id number] Netta Mayfield PA [address] [place], [place] [address] Pending Results Name Type Priority Associated Diagnoses Date /Time Cologuard - Stool, Per Rectum Lab Routine Screening for malignant neoplasm of colon 03/06/2025 12:15 PM EST Scheduled Orders Name Type Priority Associated Diagnoses Orde r Schedule Cologuard - Stool, Per Rectum Lab Routine Screening for malignant neoplasm of colon Expected: 02/24/2025 (Approximate), Expires: 05/27/2026 documented as of this encounter Procedures Procedure Name Priority Date/Time Associated Diagnosis Comments VITAMIN D,25-HYDROXY Routine 03/03/2025 9:09 AM EST Medicare annual wellness visit, subsequent Vitamin D insufficiency CBC AND DIFFERENTIAL Routine 03/03/2025 9:09 AM EST Medicare annual wellness visit, subsequent Essential hypertension Type 2 diabetes mellitus without complication, without long-term current use of insulin Coronary artery disease due to lipid rich plaque TSH Routine 03/03/2025 9:09 AM EST Medicare annual wellness visit, subsequent Acquired hypothyroidism T4, FREE Routine 03/03/2025 9:09 AM EST Medicare annual wellness visit, subsequent Acquired hypothyroidism MAGNESIUM Routine 03/03/2025 9:09 AM EST Medicare annual wellness visit, subsequent Medication monitoring encounter HEMOGLOBIN A1C Routine 03/03/2025 9:09 AM EST Medicare annual wellness visit, subsequent Type 2 diabetes mellitus without complication, without long-term current use of insulin LIPID PANEL Routine 03/03/2025 9:09 AM EST Medicare annual wellness visit, subsequent Coronary artery disease due to lipid rich plaque COMPREHENSIVE METABOLIC PANEL Routine 03/03/2025 9:09 AM EST Medicare annual wellness visit, subsequent Essential hypertension Type 2 diabetes mellitus without complication, without long-term current use of insulin Coronary artery disease due to lipid rich plaque Gastroesophageal reflux disease, unspecified whether esophagitis present documented in this encounter Results * Magnesium (03/03/2025 9:09 AM EST) Magnesium 2.2 1.6 - 2.4 mg/dL [facility] Blood 03/03/2025 9:09 AM EST 03/03/2025 Narrative [facility] [employer] [facility] (AMBULATORY) - 03/04/2025 3:07 AM EST Performed at: [address] [place] [address] [id number] Ms Sql Server Developer: Tejinder Sanches MD, Phone: [phone] Patient Fasting: Y Netta MEJAIS LAB BLOOD ORDERABLES Final Res ult [facility] ([facility]) [address] [place] [address], [place] [phone] [facility] [address] [place] [address], [place] [phone] * (ABNORMAL) Vitamin D 25 hydroxy (03/03/2025 9:09 AM EST) 25 Hydroxy, Vitamin D 15.9(L) 30.0 - 100.0 ng/ml [facility] Comment: Reference Range for Total Vitamin D 25(OH) Deficiency <20.0 ng/mL Insufficiency 21-29 ng/mL Sufficiency 30-100 ng/mL Toxicity >100 ng/ml Blood 03/03/2025 9:09 AM EST 03/03/2025 Narrative [facility] (AMBULATORY) - 03/04/2025 3:07 AM EST Performed at: [address] [place] [id number] Ms Sql Server Developer: Tejinder Sanches MD, Phone: [phone] Patient Fasting: Y Netta MEJIAS LAB BLOOD ORDERABLES Final Res ult Performing Organization Address [facility] Co de Phone Number [facility] (AMBULATORY) [address] [place] [id number], [place] [phone] [facility] [address] [place] [address], [place] [phone] * (ABNORMAL) T4, free (03/03/2025 9:09 AM EST) Free T4 0.86(L) 0.92 - 1.68 ng/dL [facility] Blood 03/03/2025 9:09 AM EST 03/03/2025 Narrative [facility] (AMBULATORY) - 03/04/2025 3:07 AM EST Performed at: [address] [place] [address] [id number] Ms Sql Server Developer: Tejinder Sanches MD, Phone: [phone] Patient Fasting: Y Netta MEJIAS LAB BLOOD ORDERABLES Final Res ult Performing Organization Address [facility] Co de Phone Number [facility] (AMBULATORY) [address] [place] [address], [facility] [address] [place] [address], [place] [phone] * (ABNORMAL) TSH (03/03/2025 9:09 AM EST) [facility] TSH 15.300(H) 0.270 - 4.200 uIU/mL [facility] Blood 03/03/2025 9:09 AM EST 03/03/2025 Narrative [facility] (AMBULATORY) - 03/04/2025 3:07 AM EST Performed at: [address] [place] [address] [id number] Ms Sql Server Developer: Tejinder Sanches MD, Phone: [phone] Patient Fasting: Y us Netta MEJIAS LAB BLOOD ORDERABLES Final Res ult Performing Organization Address City/[facility]/ZIP Co de Phone Number [facility] ([facility]) [address] [place] [address], [place] [phone] [facility] [address] [place] [address], [place] [phone] * (ABNORMAL) Hemoglobin A1c (03/03/2025 9:09 AM EST) Hemoglobin A1C 8.00(H) 4.80 - 5.60 % [facility] Comment: Hemoglobin A1C Ranges: Increased Risk for Diabetes 5.7% to 6.4% Diabetes >= 6.5% Diabetic Goal < 7.0% Blood 03/03/2025 9:09 AM EST 03/03/2025 Narrative [facility] (AMBULATORY) - 03/04/2025 3:07 AM EST Performed at: [address] [place] [address] [id number] Ms Sql Server Developer: Tejinder Sanches MD, Phone: [phone] Patient Fasting: Y Netta MEJIAS LAB BLOOD ORDERABLES Final Res ult Performing Organization Address City/[facility]/ZIP Co de Phone Number [facility] ([facility]) [address] [place] [address], [place] [phone] [facility] [address] [place] [address], [place] [phone] * (ABNORMAL) Lipid Panel (03/03/2025 9:09 AM EST) Total Cholesterol 167 0 - 200 mg/dL [facility] Comment: Cholesterol Reference Ranges (U.S. Department of Health and Human Services ATP III Classifications) Desirable <200 mg/dL Borderline High 200-239 mg/dL High Risk >240 mg/dL Triglyceride Reference Ranges (U.S. Department of Health and Human Services ATP III Classifications) Normal <150 mg/dL Borderline High 150-199 mg/dL High 200-499 mg/dL Very High >500 mg/dL HDL Reference Ranges (U.S. Department of Health and Human Services ATP III Classifications) Low <40 mg/dl (major risk factor for CHD) High >60 mg/dl ('negative' risk factor for CHD) LDL Reference Ranges (U.S. Department of Health and Human Services ATP III Classifications) Optimal <100 mg/dL Near Optimal 100-129 mg/dL Borderline High 130-159 mg/dL High 160-189 mg/dL Very High >189 mg/dL LDL is calculated using the NIH LDL-C calculation. Triglycerides 207(H) 0 - 150 mg/dL [facility] HDL Cholesterol 43 40 - 60 mg/dL [facility] VLDL Cholesterol Donn 35 5 - 40 mg/dL [facility] LDL Chol Calc (NIH) 89 0 - 100 mg/dL [facility] Blood 03/03/2025 9:09 AM EST 03/03/2025 Narrative [facility] (AM[facility]) - 03/04/2025 3:07 AM EST Performed at: [address] [place] [address] [id number] Ms Sql Server Developer: Tejinder Sanches MD, Phone: [phone] Patient Fasting: Y Netta MEJIAS LAB BLOOD ORDERABLES Final Res ult [facility] ([facility]) [address] [place] [address], [facility] [address] [place] [address], [place] [phone] * (ABNORMAL) Comprehensive metabolic panel (03/03/2025 9:09 AM EST) [facility] Glucose 166(H) 65 - 99 mg/dL [facility] BUN 12.0 8.0 - 23.0 mg/dL [facility] Creatinine 0.75 0.57 - 1.00 mg/dL [facility] EGFR Result 84.2 >60.0 mL/min/1.7 3 [facility] Comment: GFR Categories in Chronic Kidney Disease (CKD) GFR Category GFR (mL/min/1.73) Interpretation G1 90 or greater Normal or high (1) G2 60-89 Mild decrease (1) G3a 45-59 Mild to moderate decrease G3b 30-44 Moderate to severe decrease G4 15-29 Severe decrease G5 14 or less Kidney failure (1)In the absence of evidence of kidney disease, neither GFR category G1 or G2 fulfill the criteria for CKD. eGFR calculation 2020 CKD-EPI creatinine equation, which does not include race as a factor BUN/Creatinine Ratio 16.0 7.0 - 25.0 [facility] Sodium 139 136 - 145 mmol/L [facility] Potassium 4.6 3.5 - 5.2 mmol/L [facility] Comment: Slight hemolysis detected by analyzer. Result may be falsely elevated. Chloride 100 98 - 107 mmol/L [facility] Total CO2 24.9 22.0 - 29.0 mmol/L [facility] Calcium 9.6 8.6 - 10.5 mg/dL [facility] Total Protein 7.1 6.0 - 8.5 g/dL [facility] Albumin 4.3 3.5 - 5.2 g/dL [facility] Globulin 2.8 gm/dL [facility] A/G Ratio 1.5 g/dL [facility] Total Bilirubin 0.4 0.0 - 1.2 mg/dL [facility] Alkaline Phosphatase 104 39 - 117 U/L [facility] AST (SGOT) 20 1 - 32 U/L [facility] ALT (SGPT) 31 1 - 33 U/L [facility] Blood 03/03/2025 9:09 AM EST 03/03/2025 Narrative [facility] (AM[facility]ATORY) - 03/04/2025 3:07 AM EST Performed at: [address] [place] [address] [id number] Ms Sql Server Developer: Tejinder Sanches MD, Phone: [phone] Patient Fasting: Y us Netta MEJIAS LAB BLOOD ORDERABLES Final Res ult [facility] (AMBULATORY) [address] [place] [address], [place] [phone] [facility] [address] [place] [address], [place] [phone] * (ABNORMAL) CBC w AUTO Differential (03/03/2025 9:09 AM EST) WBC 7.83 3.40 - 10.80 10*3/mm3 [facility] RBC 4.76 3.77 - 5.28 10*6/mm3 [facility] Hemoglobin 14.9 12.0 - 15.9 g/dL [facility] Hematocrit 45.1 34.0 - 46.6 % [facility] MCV 94.7 79.0 - 97.0 fL [facility] MCH 31.3 26.6 - 33.0 pg [facility] MCHC 33.0 31.5 - 35.7 g/dL [facility] RDW 11.6(L) 12.3 - 15.4 % [facility] Platelets 201 140 - 450 10*3/mm3 [facility] Neutrophil Rel % 55.5 42.7 - 76.0 % [facility] Lymphocyte Rel % 30.9 19.6 - 45.3 % [facility] Monocyte Rel % 7.5 5.0 - 12.0 % [facility] Eosinophil Rel % 4.6 0.3 - 6.2 % [facility] Basophil Rel % 1.0 0.0 - 1.5 % [facility] Neutrophils Absolute 4.34 1.70 - 7.00 10*3/mm3 [facility] Lymphocytes Absolute 2.42 0.70 - 3.10 10*3/mm3 [facility] Monocytes Absolute 0.59 0.10 - 0.90 10*3/mm3 [facility] Eosinophils Absolute 0.36 0.00 - 0.40 10*3/mm3 [facility] Basophils Absolute 0.08 0.00 - 0.20 10*3/mm3 [facility] Immature Granulocyte Rel % 0.5 0.0 - 0.5 % [facility] Immature Grans Absolute 0.04 0.00 - 0.05 10*3/mm3 [facility] nRBC 0.0 0.0 - 0.2 /100 WBC [facility] Blood 03/03/2025 9:09 AM EST 03/03/2025 Narrative [facility] (AM[facility]AT[facility]) - 03/04/2025 3:07 AM EST Performed at: [address] [place] [address] [id number] Ms Sql Server Developer: Tejinder Sanches MD, Phone: [phone] Patient Fasting: Y Netta MEJIAS LAB BLOOD ORDERABLES Final Res ult [facility] (AMBULAT[facility]) [address] [place] [address], [place] [phone] [facility] [address] [place] [address], [place] [phone] documented in this encounter Visit Diagnoses Diagnosis Medicare annual wellness visit, subsequent- Primary Essential hypertension Unspecified essential hypertension Type 2 diabetes mellitus without complication, without long-term current use of insulin Coronary artery disease due to lipid rich plaque Vitamin D insufficiency Acquired hypothyroidism Unspecified hypothyroidism Medication monitoring encounter Encounter for therapeutic drug monitoring Gastroesophageal reflux disease, unspecified whether esophagitis present Screening for malignant neoplasm of colon Need for influenza vaccination Need for prophylactic vaccination and inoculation against influenza documented in this encounter Additional Health Concerns Assessment Noted Time A fall risk assessment has been complete d for the patient 03/17/2018 8:51 AM EST documented as of this encounter Care Teams Fire Dispatcher Relationship Specialty Start Date End Date Netta Mayfield PA [address] [place] [address] PCP - General Physician Senior Military Analyst 02/26/18 documented as of this encounter
--- OUTSIDE RECORDS SUMMARY | 2025-03-03 09:10 | XMS_ITS | Encounter Summary ---
[facility] Address [address] [place] [address] Care Team Providers Care Last Cleaner Name Role Phone Netta Mayfield Primary Care Provider [phone] Encounter Details Date Type Department Care Team (Late Contact Info) Description 03/03/2025 9:10 AM EST Lab [facility] MED[facility] [address] [place] [address] Social History Tobacco Use Types Packs/Day Years [...] Department Care Team (Late Contact Info) Description 03/01/2026 11:00 AM EST Office Visit [facility] [address] [place] [address] Netta Mayfield PA [address] [place] [place] [address] documented as of this encounter Visit Diagnoses Not on filedocumented in this encounter Additional Health Concerns Assessment Noted Time A fall risk assessment has been complete d for the patient 03/17/2018 8:51 AM EST documented as of this encounter Care Teams Last Cleaner Relationship Specialty Start Date End Date Netta Mayfield PA [address] [place] [address] PCP - General Physician Digital Photographic Printer 02/26/18 documented as of this encounter
--- OUTSIDE RECORDS SUMMARY | 2025-03-08 07:57 | XMS_ITS | Encounter Summary ---
Author Organization [facility] Address [address] [place] [id number] Care Team Providers Care Clinical Education Manager Name Role Phone Netta Mayfield Primary Care Provider [phone] Encounter Details Date Type Department Care Team [...] Description 03/01/2026 11:00 AM EST Office Visit [facility] [address] [place] [address] Netta Mayfield PA [address] [place] [address] documented as of this encounter Visit Diagnoses Not on filedocumented in this encounter Additional Health Concerns Assessment Noted Time A fall risk assessment has been complete d for the patient 03/17/2018 8:51 AM EST documented as of this encounter Care Teams Clinical Education Manager Relationship Specialty Start Date End Date Netta Mayfield PA [address] [place] [address] PCP - General Physician Risk Management Consultant 02/26/18 documented as of this encounter
--- OUTSIDE RECORDS SUMMARY | 2025-03-08 07:57 | XMS_ITS | Encounter Summary ---
[facility] Address [address] [place] [address] Care Team Providers Care Ceramic Chemist Name Role Phone Netta Mayfield Primary Care Provider [phone] Encounter Details Date Type Department Care Team (Late Contact Info) Description 07/29/2024 Results Follow-Up [facility] [address] [place] [address] Netta Mayfield PA [address] [place] [address] Social History Tobacco Use Types [...] Description 03/01/2026 11:00 AM EST Office Visit [facility] [address] [place] [phone] Netta Mayfield PA [address] [place] [address] Scheduled Orders Name Type Priority [...] documented as of this encounter Care Teams Ceramic Chemist Relationship Specialty Start Date End Date Netta Mayfield PA [address] [place] [address] PCP - General Physician Interior Design Consultant 02/26/18 documented as of this encounter
--- OUTSIDE RECORDS SUMMARY | 2025-03-08 07:58 | XMS_ITS ---
Laboratory report Created on: March 02, 2025 ANTHONY BRYANT : 1950 Sex: Female Author Name ANDRESSA FRANCO [employer] Unknown PROBLEMS Problems List Code Description E11.9 I25.10 I25.83 E03.9 E55.9 RESULTS Laboratory Orders Date Order Code Test 2024-07-14 265460 HEMOGLOBIN A1C 2024-07-14 604164 CBC WITH DIFFERE NTIAL/PLATELET 2024-07-14 [id number] COMP. METABOLIC PANEL (14) 2024-07-14 474756 THYROXINE (T4) F REE, DIRECT 2024-07-14 003275 LIPID PANEL 2024-07-14 413045 VITAMIN D, 25-HY DROXY 2024-07-14 308700 TSH Laboratory Results Date LOINC Test Value Unit Reference Range Interpre tation 2024-07-14 4548-4 HEMOGLOBIN A1C 8.1 % 4.80-5.60 H 2024-07-14 6690-2 WBC 6.95 X10E3/UL 3.40-10.80 2024-07-14 789-8 RBC 4.18 X10E6/UL 3.77-5.28 2024-07-14 718-7 HEMOGLOBIN 13.9 G/DL 12.0-15.9 2024-07-14 4544-3 HEMATOCRIT 39.6 % 34.0-46.6 2024-07-14 787-2 MCV 94.7 FL 79.0-97.0 2024-07-14 785-6 MCH 33.3 PG 26.6-33.0 H 2024-07-14 786-4 MCHC 35.1 G/DL 31.5-35.7 2024-07-14 788-0 RDW 11.9 % 12.3-15.4 L 2024-07-14 777-3 PLATELETS 183 X10E3/UL 260-431 3494-04-15 770-8 NEUTROPHILS 51.3 % 42.7-76.0 2024-07-14 736-9 LYMPHS 35.1 % 19.6-45.3 2024-07-14 5905-5 MONOCYTES 6.9 % 5.0-12.0 2024-07-14 713-8 EOS 5 % 0.3-6.2 2024-07-14 706-2 BASOS 1.4 % 0.0-1.5 2024-07-14 751-8 NEUTROPHILS (ABSOLUTE) 3.56 X10E3/UL 1.70-7.00 2024-07-14 731-0 LYMPHS (ABSOLUTE) 2.44 X10E3/UL 0.70-3.10 2024-07-14 742-7 MONOCYTES(ABSOLUTE) .48 X10E3/UL 0.10-0.9 0 2024-07-14 711-2 EOS (ABSOLUTE) .35 X10E3/UL 0.00-0.40 2024-07-14 704-7 BASO (ABSOLUTE) .1 X10E3/UL 0.00-0.20 2024-07-14 84055-8 IMMATURE GRANULOCYTES .3 % 0.0-0.5 2024-07-14 56443-5 IMMATURE GRANS (ABS) .02 X10E3/UL 0.00-0. 05 2024-07-14 86228-1 NRBC 0 % 0.0-0.2 2024-07-14 2345-7 GLUCOSE 211 MG/DL 65-99 H 2024-07-14 3094-0 BUN 9 MG/DL 8-23 2024-07-14 2160-0 CREATININE .87 MG/DL 0.57-1.00 2024-07-14 37899-8 EGFR 70.5 ML/MIN/1.7 3 >60.0 2024-07-14 3097-3 BUN/CREATININE RATIO 10.3 7.0-25.0 2024-07-14 2951-2 SODIUM 139 MMOL/L 432-169 8285-04-15 2823-3 POTASSIUM 4.1 MMOL/L 3.5-5.2 2024-07-14 2075-0 CHLORIDE 101 MMOL/L 98-107 2024-07-14 2028-9 CARBON DIOXIDE, TOTAL 24.5 MMOL/L 22.0-29.0 2024-07-14 97480-9 CALCIUM 9.5 MG/DL 8.6-10.5 2024-07-14 2885-2 PROTEIN, TOTAL 7.2 G/DL 6.0-8.5 2024-07-14 1751-7 ALBUMIN 4.1 G/DL 3.5-5.2 2024-07-14 75442-5 GLOBULIN, TOTAL 3.1 G/DL 2024-07-14 1759-0 A/G RATIO 1.3 2024-07-14 1975-2 BILIRUBIN, TOTAL .4 MG/DL 0.0-1.2 2024-07-14 6768-6 ALKALINE PHOSPHATASE 90 IU/L 39-117 2024-07-14 1920-8 AST (SGOT) 16 IU/L 1-32 2024-07-14 1742-6 ALT (SGPT) 10 IU/L 1-33 2024-07-14 3024-7 T4,FREE(DIRECT) .81 NG/DL 0.92-1.68 L 2024-07-14 2093-3 CHOLESTEROL, TOTAL 197 MG/DL 0-200 2024-07-14 2571-8 TRIGLYCERIDES 187 MG/DL 0-150 H 2024-07-14 2085-9 HDL CHOLESTEROL 37 MG/DL 40-60 L 2024-07-14 13730-3 VLDL CHOLESTEROL LIZETT 33 MG/DL 5-40 2024-07-14 71820-2 LDL CHOL CALC ([facility]) 127 MG/DL 0-100 H 2024-07-14 36179-9 VITAMIN D, 25-HYDROXY 12.8 NG/ML 30.0-100.0 L 2024-07-14 28481-8 TSH 19.9 UIU/ML 0.270-4.200 H
--- OUTSIDE RECORDS SUMMARY | 2025-03-08 07:58 | XMS_ITS | Encounter Summary ---
Author Organization [facility] Address [address] [place] [address] Care Team Providers Care Interior Designer Name Role Phone Netta Mayfield Primary Care Provider [phone] Encounter Details Date Type Department Care Team [...] AM EST Office Visit [facility] [address] [address] Netta Mayfield PA [address] [place] [address] documented as of this encounter Visit Diagnoses Not on filedocumented in this encounter Additional Health Concerns Assessment Noted Time A fall risk assessment has been complete d for the patient 03/17/2018 8:51 AM EST documented as of this encounter Care Teams Interior Designer Relationship Specialty Start Date End Date Netta Mayfield PA [address] [place] [place] [address] PCP - General Physician [facility] 02/26/18 documented as of this encounter
--- OUTSIDE RECORDS SUMMARY | 2025-03-08 07:58 | XMS_ITS ---
Laboratory report Created on: March 06, 2025 ANTHONY BRYANT : 1950 Sex: Female Author Name ANDRESSA FRANCO [employer] Unknown PROBLEMS Problems List Code Description Z00.00 I10 E11.9 I25.10 I25.83 K21.9 E03.9 E55.9 Z51.81 RESULTS Laboratory Orders Date Order Code Test 2025-03-03 411323 TSH 2025-03-03 827826 VITAMIN D, 25-HY DROXY 2025-03-03 647847 MAGNESIUM 2025-03-03 720438 THYROXINE (T4) F REE, DIRECT 2025-03-03 609173 HEMOGLOBIN A1C 2025-03-03 142826 CBC WITH DIFFERE NTIAL/PLATELET 2025-03-03 820253 COMP. METABOLIC PANEL (14) 2025-03-03 566638 LIPID PANEL Laboratory Results Date LOINC Test Value Unit Reference Range Interpre tation 2025-03-03 46372-9 TSH 15.3 UIU/ML 0.270-4.200 H 2025-03-03 74729-9 VITAMIN D, 25-HYDROXY 15.9 NG/ML 30.0-100.0 L 2025-03-03 60345-7 MAGNESIUM 2.2 MG/DL 1.6-2.4 2025-03-03 3024-7 T4,FREE(DIRECT) .86 NG/DL 0.92-1.68 L 2025-03-03 4548-4 HEMOGLOBIN A1C 8 % 4.80-5.60 H 2025-03-03 6690-2 WBC 7.83 X10E3/UL 3.40-10.80 2025-03-03 789-8 RBC 4.76 X10E6/UL 3.77-5.28 2025-03-03 718-7 HEMOGLOBIN 14.9 G/DL 12.0-15.9 2025-03-03 4544-3 HEMATOCRIT 45.1 % 34.0-46.6 2025-03-03 787-2 MCV 94.7 FL 79.0-97.0 2025-03-03 785-6 MCH 31.3 PG 26.6-33.0 2025-03-03 786-4 MCHC 33 G/DL 31.5-35.7 2025-03-03 788-0 RDW 11.6 % 12.3-15.4 L 2025-03-03 777-3 PLATELETS 201 X10E3/UL 419-742 4854-12-03 770-8 NEUTROPHILS 55.5 % 42.7-76.0 2025-03-03 736-9 LYMPHS 30.9 % 19.6-45.3 2025-03-03 5905-5 MONOCYTES 7.5 % 5.0-12.0 2025-03-03 713-8 EOS 4.6 % 0.3-6.2 2025-03-03 706-2 BASOS 1 % 0.0-1.5 2025-03-03 751-8 NEUTROPHILS (ABSOLUTE) 4.34 X10E3/UL 1.70-7.00 2025-03-03 731-0 LYMPHS (ABSOLUTE) 2.42 X10E3/UL 0.70-3.10 2025-03-03 742-7 MONOCYTES(ABSOLUTE) .59 X10E3/UL 0.10-0.9 0 2025-03-03 711-2 EOS (ABSOLUTE) .36 X10E3/UL 0.00-0.40 2025-03-03 704-7 BASO (ABSOLUTE) .08 X10E3/UL 0.00-0.20 2025-03-03 37284-4 IMMATURE GRANULOCYTES .5 % 0.0-0.5 2025-03-03 74730-0 IMMATURE GRANS (ABS) .04 X10E3/UL 0.00-0. 05 2025-03-03 89426-6 NRBC 0 % 0.0-0.2 2025-03-03 2345-7 GLUCOSE 166 MG/DL 65-99 H 2025-03-03 3094-0 BUN 12 MG/DL 8.0-23.0 2025-03-03 2160-0 CREATININE .75 MG/DL 0.57-1.00 2025-03-03 16653-5 EGFR 84.2 ML/MIN/1.7 3 >60.0 2025-03-03 3097-3 BUN/CREATININE RATIO 16 7.0-25.0 2025-03-03 2951-2 SODIUM 139 MMOL/L 381-819 9453-12-03 2823-3 POTASSIUM 4.6 MMOL/L 3.5-5.2 2025-03-03 2075-0 CHLORIDE 100 MMOL/L 98-107 2025-03-03 2028-9 CARBON DIOXIDE, TOTAL 24.9 MMOL/L 22.0-29.0 2025-03-03 00872-5 CALCIUM 9.6 MG/DL 8.6-10.5 2025-03-03 2885-2 PROTEIN, TOTAL 7.1 G/DL 6.0-8.5 2025-03-03 1751-7 ALBUMIN 4.3 G/DL 3.5-5.2 2025-03-03 78102-5 GLOBULIN, TOTAL 2.8 G/DL 2025-03-03 1759-0 A/G RATIO 1.5 2025-03-03 1975-2 BILIRUBIN, TOTAL .4 MG/DL 0.0-1.2 2025-03-03 6768-6 ALKALINE PHOSPHATASE 104 IU/L 39-117 2025-03-03 1920-8 AST (SGOT) 20 IU/L 1-32 2025-03-03 1742-6 ALT (SGPT) 31 IU/L 1-33 2025-03-03 2093-3 CHOLESTEROL, TOTAL 167 MG/DL 0-200 2025-03-03 2571-8 TRIGLYCERIDES 207 MG/DL 0-150 H 2025-03-03 2085-9 HDL CHOLESTEROL 43 MG/DL 40-60 2025-03-03 56052-7 VLDL CHOLESTEROL LIZETT 35 MG/DL 5-40 2025-03-03 16206-9 LDL CHOL CALC ([facility]) 89 MG/DL 0-100
--- OUTSIDE RECORDS SUMMARY | 2025-03-08 07:58 | XMS_ITS | Clinical Summary ---
Author Organization [facility] Address [address] [place] [address] Care Team Providers Care Hand Knitter Name Role Phone Netta Mayfield Primary Care Provider [phone] Allergies Active Allergy Reactions Criticality Noted Date [...] 25 Active vitamin D (ERGOCALCIFEROL) 1.25 MG (95102 UT) capsule capsuleIndication s:Vitamin D insufficiency Take [...] Discontinued(Re order) vitamin D (ERGOCALCIFEROL) 1.25 MG (16006 UT) capsule capsuleIndication s:Vitamin D insufficiency Take [...] (04/22/2019): Added automatically from request for surgery [id number] S/P cardiac catheterization 04/17/2019 Hypothyroidism 04/16/2019 Assessment [...] Team Description 03/03/2025 9:10 AM EST Lab [facility] [address] [place] [address] 03/03/2025 Travel 02/24/2025 3:00 PM EST Office Visit [facility] [address] [place] [address] Netta Mayfield PA Medicare annual wellness visit, [...] Description 03/01/2026 11:00 AM EST Office Visit [facility] [address] [place] [address] Netta Mayfield PA [address] [place] [address] Health Maintenance Due Date Last Done Comments [...] COLONOSCOPY 04/01/2022 04/01/2012 COLORECTAL CANCER SCREENING 04/01/2022 URINE MICROALBUMIN-CREATININE RATIO (uACR) 06/16/2025 06/16/2024, 03/17/2018 COVID-19 Vaccine (3 - Moderna risk series) 08/24/2025 06/12/2020, 05/15/2020 Postponed from 07/10/2020 (Patient Refused) HEMOGLOBIN A1C 09/01/2025 03/03/2025, 04/07/2024, 11/04/2019, Additional history exists ANNUAL WELLNESS VISIT 02/24/2026 02/24/2025 , 02/24/2025, 11/04/2019, Additional history exists MAMMOGRAM 02/24/2026 04/07/2021, 07/2019, 06/20/2018, Additional history exists Postponed from 04/07/2023 (Patient Refused) HEPATITIS C SCREENING Completed 03/17/2018, 018 Pneumococcal Vaccine 50+ Completed 11/04/2019, 01/31 INFLUENZA VACCINE Completed 02/24/2025, , 12/10/2019, Additional history exists Medical Devices Implanted Type Area Senior Boiler Operator Device Identifier Shelf Expiration Date Model / Serial / Lot Stent- 0 Implanted:Qty: 2 on 04/16/2019 by Brandon Keyes MD Stent Left: Heart Description:[employer] Lot#[id number] And Lot#[id number] Stent Xience Alma Everolimus Reagan 2.5x23mm - [id number] Implanted:Qty: 1 on 04/16/2019 by Brandon Keyes MD at [facility] [employer] [id number] / / [id number] Stent Xience Alma Everolimus Reagan 2.5x15mm - [id number] Implanted:Qty: 1 on 04/16/2019 by Brandon Keyes MD at [facility] [employer] [id number] / / [id number] Stnt Xience Alma Everolimus Reagan 2.5x23mm - [id number] Implanted:Qty: 1 on 05/01/2019 by Brandon Keyes MD at [facility] [employer] [id number] / / Procedures Procedure Name Priority Date/Time Associated Diagnosis Comments CBC AND DIFFERENTIAL Routine 03/03/2025 9:09 AM EST Medicare annual wellness visit, subsequent Essential hypertension Type 2 diabetes mellitus without complication, without long-term current use of insulin Coronary artery disease due to lipid rich plaque MAGNESIUM Routine 03/03/2025 9:09 AM EST Medicare annual wellness visit, subsequent Medication monitoring encounter VITAMIN D,25-HYDROXY Routine 03/03/2025 9:09 AM EST Medicare annual wellness visit, subsequent Vitamin D insufficiency T4, FREE Routine 03/03/2025 9:09 AM EST Medicare annual wellness visit, subsequent Acquired hypothyroidism TSH Routine 03/03/2025 9:09 AM EST Medicare annual wellness visit, subsequent Acquired hypothyroidism HEMOGLOBIN A1C Routine 03/03/2025 9:09 AM EST [...] Gastroesophageal reflux disease, unspecified whether esophagitis present POC ALBUMIN/CREATININE RATIO Routine 06/16/2024 12:19 PM [...] Relevant to Health Maintenance Results * (ABNORMAL) Vitamin D 25 hydroxy (03/03/2025 9:09 AM EST) 25 Hydroxy, Vitamin D 15.9(L) 30.0 - 100.0 ng/ml [facility] Comment: Reference Range for Total Vitamin D 25(OH) Deficiency <20.0 ng/mL Insufficiency 21-29 ng/mL Sufficiency 30-100 ng/mL Toxicity >100 ng/ml Blood 03/03/2025 9:09 AM EST 03/03/2025 Narrative [facility] ([facility]) - 03/04/2025 3:07 AM EST Performed at: [address] [place] [address] [id number] Medical Aides Teacher: Tejinder Sanches MD, Phone: [phone] Patient Fasting: Y Netta [facility] BLOOD ORDERABLES Final Res ult [facility]) [address] [place] [address], [facility] [address] [place] [address], * (ABNORMAL) CBC w AUTO Differential (03/03/2025 [...] - 03/04/2025 3:07 AM EST Performed at: [address] [place] [address] [id number] Medical Aides Teacher: Tejinder Sanches MD, Phone: [phone] Patient Fasting: Y Netta [facility] LAB BLOOD ORDERABLES Final Res ult Performing Organization Address City/[facility] Co de Phone Number [facility] ([facility]) [address] [place] [address], [facility] [address] [place] [address], * (ABNORMAL) TSH (03/03/2025 9:09 AM EST) TSH 15.300(H) 0.270 - 4.200 uIU/mL [facility] Blood 03/03/2025 9:09 AM EST 03/03/2025 Narrative [facility] ([facility]) - 03/04/2025 3:07 AM EST Performed at: [address] [place] [address] [id number] Medical Aides Teacher: Tejinder Sanches MD, Phone: [phone] Patient Fasting: Y Netta [facility] BLOOD ORDERABLES Final Res ult Performing Organization Address City/[facility]/ZIP Co de Phone Number [facility] (AMBULATORY) [address] [place] [address], [place] [phone] [facility] [address] [place] [address], [place] [phone] * (ABNORMAL) T4, free (03/03/2025 9:09 AM EST) Free T4 0.86(L) 0.92 - 1.68 ng/dL [facility] Blood 03/03/2025 9:09 AM EST 03/03/2025 Narrative [facility] ([facility]) - 03/04/2025 3:07 AM EST Performed at: [address] [place] [address] [address] [place], [place] [id number] Medical Aides Teacher: Tejinder Sanches MD, Phone: [phone] Patient Fasting: Y Netta [facility] BLOOD ORDERABLES Final Res ult Performing Organization Address City/[facility]/ZIP Co de Phone Number [facility] [address] [place] [address], [facility] [address] [place] [address], [place] [phone] * Magnesium (03/03/2025 9:09 AM EST) Pathologist [facility] Magnesium 2.2 1.6 - 2.4 mg/dL [facility] Blood 03/03/2025 9:09 AM EST 03/03/2025 Narrative [facility] ([facility]) - 03/04/2025 3:07 AM EST Performed at: [address] [place] [address] [address] [place], [place] [id number] Medical Aides Teacher: Tejinder Sanches MD, Phone: [phone] Patient Fasting: Y Nteta [facility] LAB BLOOD ORDERABLES Final Res ult [facility] (AMBULATORY) [address] [place] [address], [place] [phone] [facility] [address] [place] [address], [place] [phone] * (ABNORMAL) Hemoglobin A1c (03/03/2025 9:09 AM EST) Hemoglobin A1C 8.00(H) 4.80 - 5.60 % [facility] Comment: Hemoglobin A1C Ranges: Increased Risk for Diabetes 5.7% to 6.4% Diabetes >= 6.5% Diabetic Goal < 7.0% Blood 03/03/2025 9:09 AM EST 03/03/2025 Narrative [facility] ([facility]) - 03/04/2025 3:07 AM EST Performed at: [address] [place] [address] [id number] Medical Aides Teacher: Tejinder Sanches MD, Phone: [phone] Patient Fasting: Y Netta [facility] BLOOD ORDERABLES Final Res ult [facility] (AMBULATORY) [address] [place] [address], [facility] [address] [place] [address], * (ABNORMAL) Lipid Panel (03/03/2025 9:09 AM [...] 03/03/2025 9:09 AM EST 03/03/2025 Narrative [facility] (AMBULATORY) - 03/04/2025 3:07 AM EST Performed at: [address] [id number] Medical Aides Teacher: Tejinder Sanches MD, Phone: [phone] Patient Fasting: Y us Netta [facility] BLOOD ORDERABLES Final Res ult [facility] (AMBULATORY) [address] [place] [address], [facility] [address] [place] [address], * (ABNORMAL) Comprehensive metabolic panel (03/03/2025 9:09 AM EST) [facility] Glucose 166(H) 65 - 99 mg/dL [...] 03/03/2025 9:09 AM EST 03/03/2025 Narrative [facility] (AMBULATORY) - 03/04/2025 3:07 AM EST Performed at: [address] [place] [id number] Medical Aides Teacher: Tejinder Sanches MD, Phone: [phone] Patient Fasting: Y Netta [facility] LAB BLOOD ORDERABLES Final Res ult [facility] (AMBULATORY) [address] [place] [address], [facility] [address] [place] [address], * (ABNORMAL) POC Albumin/Creatinine Ratio Urine (06/16/2024 12:19 PM EDT) POC ALBUMIN, URINE 80 mg/L POC CREATININE, URINE 100 mg/dL POC Urine Albumin Creatinine Ratio 30-300 mg/g <30 Lot Number [id number] Expiration Date 11/29/24 Urine 06/16/2024 12:1 9 PM EDT Netta [facility] POINT OF CARE TEST ORDERABLES [...] with a HCV Nucleic Acid Amplification test ([id number]). Blood 03/17/2018 9:50 AM EST 03/17/2018 Narrative [facility] ([facility]) - 03/18/2018 6:11 AM EST Performed at: 01 - [facility] [address] [place], [place] [id number] Medical Aides Teacher: Butch Del Toro PhD, Phone: [phone] Patient Fasting: N us Netta [facility] LAB BLOOD ORDERABLES Final Res ult [facility] ([facility]) [address] [place] [address], [facility] [address] [place] [address], from Last 3 Months or Most Recently Relevant to Health Maintenance Insurance MEDICARE A & B Advance Directives * CPR (Attempt to Resuscitate) (Latest Code Status on File) Date Activated Date Inactivated Comments 04/15/2019 10:31 PM 04/17/2019 3:38 PM Question Answer Comments Code Status (Patient has no pulse and is not breathing): CPR (Attempt to Resuscitate) Medical Interventions (Patie nt has pulse or is breathing): Full Level Of Support Discussed With: Patient Care Teams Hand Knitter Relationship Specialty Start Date End Date Netta Mayfield PA [address] [place] [address] PCP - General Physician Child Adolescent Psychiatrist 02/26/18
--- OUTSIDE RECORDS SUMMARY | 2025-03-08 07:58 | XMS_ITS ---
Laboratory report Created on: March 02, 2025 ANTHONY BRYANT : 1950 Sex: Female Author Organization Unknown PROBLEMS Problems List Code Description RESULTS Laboratory Orders Date Order Code Test 2024-06-09 298857 THYROID PEROXIDA SE (TPO) AB 2024-06-09 584325 TRIIODOTHYRONINE (T3), FREE 2024-06-09 702371 THYROTROPIN RECE PTOR AB, SERUM Laboratory Results Date LOINC Test Value Unit Reference Range Interpre tation 2024-06-09 8099-4 THYROID PEROXIDA SE (TPO) AB 231 IU/ML 0-34 H 2024-06-09 3051-0 TRIIODOTHYRONINE (T3), FREE 2.5 PG/ML 2.0-4.4 2024-06-09 5385-0 THYROTROPIN RECE PTOR AB, SERUM <1.10 IU/L 0.00-1.75
[2025-03-08 08:11] LABS: Hematocrit 45.2 % (37.0-47.0); Hemoglobin 15.2 g/dL (12.2-16.2); Immature Granulocytes % 0.3 %; Mean Corpuscular HGB Conc 33.6 g/dL (31.8-35.4); Mean Corpuscular Hemoglobin 31.6 pg (27.0-31.2); Mean Corpuscular Volume 94.0 fl (81-99); Nucleated Red Blood Cells % 0 %; Platelet Count 195 K/mm3 (142-424); Red Blood Count 4.81 M/mm3 (4.20-5.40); Red Cell Distribution Width-SD 42.5 fL; White Blood Count 7.0 K/mm3 (4.8-10.8)
[2025-03-08 09:03] LABS: Albumin Level 4.4 g/dl (3.5-5.0); Chloride 103 mmol/L (98-107)
[2025-03-08 09:04] LABS: Potassium 4.4 mmoL/L (3.5-5.1); Sodium 144 mmol/L (136-145)
[2025-03-08 09:06] LABS: Anion Gap 15.4 mEq/L (5-15); Bilirubin,Unconjugated 0.6 mg/dL (0.0-1.1); Blood Urea Nitrogen 11 mg/dl (7-17); Carbon Dioxide 30 mmol/L (22.0-30.0); Creatinine,Serum 0.80 mg/dl (0.52-1.04); Estimated Glomerular Filt Rate 70 ml/min (>60); GFR (African American) 85 ML/MIN (>60); Total Protein,Serum 7.5 g/dl (6.3-8.2)
[2025-03-08 09:07] LABS: Alanine Aminotransferase 27 U/L (12-78); Alkaline Phosphatase 90 U/L (38-126); Aspartate Amino Transferase 26 U/L (14-36); Bilirubin,Direct 0.0 mg/dl (0.0-0.4); Bilirubin,Indirect 0.6 mg/dL (0.0-0.9); Bilirubin,Total 0.6 mg/dl (0.2-1.3); Calcium 9.7 mg/dl (8.4-10.2); Cholesterol 157 mg/dl (140-200); Glucose 172 mg/dl (74-100); HDL Cholesterol 47 mg/dl (40-60); Triglycerides 162 mg/dl (30-150)
== END 2025-03-08 23:59 | disposition home or self-care (01) ==
LOC: LAB 07:56
PROVIDERS: PCP Physician Assistant; Visit Provider Internal Medicine
DX: I21.4 Non-ST elevation (NSTEMI) myocardial infarction (principal); I10 Essential (primary) hypertension; E78.5 Hyperlipidemia, unspecified
CPT/HCPCS: 36415; 80048; 80061; 80076; 85025

== ENCOUNTER 2025-03-17 08:48 | Outpatient (CLI) | payer MEDICARE, BC, SELFPAY ==
--- OUTSIDE RECORDS SUMMARY | 2025-02-24 15:00 | XMS_ITS | Encounter Summary ---
Author Organization [facility] Address [address] [place] [id number] Care Team Providers Care Concrete Block Mason Name Role Phone Netta Mayfield Primary Care Provider [phone] Reason for Visit * Reason Comments Medicare Wellness-subsequent Will need l abs. Pt is fasting at least 10 hours Encounter Details Date Type Department Care Team (Late st Contact Info) Description 02/24/2025 3:00 PM EST Office Visit [facility] [address] [place] [address] Netta Mayfield PA [address] [place] [address] Medicare annual wellness visit, subsequent [...] was admitted within the past 365 days [facility] Current Medical Providers: Patient Care Team: Netta Mayfield PA as PCP - General (Physician Historic Sites Registrar) Outpatient Medications Prior to Visit Medication Sig [...] capsule 2 vitamin D (ERGOCALCIFEROL) 1.25 MG (82016 UT) capsule capsule Take 1 capsule by [...] INFLUENZA VACCINE Completed Pneumococcal Vaccine 50+ Completed [facility] Preventative Services Quick Reference Risk Factors Identified [...] She is under the care of a claim agent, who has been providing refills for her medications. She isscheduled for a stress test next Saturday. She experienced heartburn, which was not accompanied byarm or back pain, but her blood pressure spiked to 212/103. She took nitroglycerin, which brought her blood pressure down. She is unsure whether she is taking Plavix or Brilinta. Her claim agent didnot express any concerns about partial blockages [...] one eye and has not seen her case management assistant in the past 6 months. She has [...] D 25 hydroxy Magnesium Fluzone High-Dose 65+yrs (3093-2403) Essential hypertension Orders: CBC w AUTO Differential [...] 25 hydroxy vitamin D (ERGOCALCIFEROL) 1.25 MG (74492 UT) capsule capsule; Take 1 capsule by [...] for influenza vaccination Orders: Fluzone High-Dose 65+yrs (1035-8491) Diagnoses and all orders for this visit: [...] hydroxy - vitamin D (ERGOCALCIFEROL) 1.25 MG (24046 UT) capsule capsule; Take 1 capsule by [...] for influenza vaccination - Fluzone High-Dose 65+yrs (1813-8491) I spent 15 minutes caring for Era [...] the AVS if appropriate. Patient or patient signs sales representative verbalized consent for the use of Ambient Listening during the visit with RANDELL Cardenas for chart documentation. 02/28/2025 15:02 EST documented in this encounter Plan of Treatment Upcoming Encounters Date Type Department Care Team (Late st Contact Info) Description 03/01/2026 11:00 AM EST Office Visit [facility] [address] [place], [place] [address] Netta Mayfield PA [address] [place] [address] documented as of this encounter Procedures Procedure [...] present documented in this encounter Results * Cologuard - Stool, Per Rectum (03/05/2025 6:30 AM EST) Cologuard Negative Negative 03/11/2025 10:40 AM EST [employer] (CLIA #:[id number]) Comment: The Cologuard Plus (TM) test was performed on this specimen. NEGATIVE TEST RESULT. A negative (normal) Cologuard Plus result means the patient has a [id number] chance of having colorectal cancer (CRC) or advanced precancer (polyps or lesions that could become cancer). Negative is the normal value (reference range) for this assay. Guidelines recommend screening again 3 years after a negative Cologuard Plus result. Continued screening increases the chance of finding CRC early or preventing it entirely. A clinical validation study showed the Cologuard Plus test is effective at ruling out CRC. Out of every 10,000 patients testing negative, approximately 2 will be falsely reassured that they do not have CRC, and out of every 100 patients testing negative, approximately 7 patients will be falsely reassured they do not have advanced precancer. TEST DESCRIPTION: The Cologuard Plus test is a multi-target stool DNA (mt-sDNA) test that analyzes DNA and hemoglobin biomarkers in stool. It uses a proprietary algorithm to qualitatively detect CRC and advanced precancer. It is FDA-approved and indicated for use in adults 45 years or older at average risk for CRC. A positive (abnormal) result should be followed by a colonoscopy. Patients with a negative (normal) result should screen again in 3 years. False positive and false negative results may occur. The USPSTF recommends the Cologuard test as a CRC screening option. Their modeling estimates that screening with the test every 3 years from ages 45-85 could prevent up to 73% of CRC and avoid up to 85% of CRC deaths. A 18,911-patient clinical trial found the Cologuard Plus test effectively detects CRC and precancer. The study found the test was 95% sensitive for CRC, 43% sensitive for advanced precancer, and had a 91% specificity (Cologuard Plus Clinician Brochure. [employer]. [place], [place].). Visit https://www.exactsciences.com/references/cologuard-plus for more test information, references, warnings, and precautions. Stool specimen (specimen) Specimen from rectum / Unknown 03/05/2025 6:30 AM EST 03/06/2025 12:15 PM EST Netta MEJIAS BODY FLUIDS AND STOOLS ORDERAB LES Final Result [facility] (CLIA #:[id number]) [address] [place] [address], * Magnesium (03/03/2025 9:09 AM EST) Magnesium 2.2 1.6 - 2.4 mg/dL [facility] Blood 03/03/2025 9:09 AM EST 03/03/2025 Narrative [facility] (AMBULATORY) - 03/04/2025 3:07 AM EST Performed at: [address] [place] [address] [id number] Forming Roll Operator Heavy Duty: Tejinder Sanches MD, Phone: [phone] Patient Fasting: Y Netta MEJIAS LAB BLOOD ORDERABLES Final Res ult Performing Organization Address City/[facility]/RUST Co de Phone Number [facility] (AMBUL[facility]) [address] [place] [address], [place] [phone] [facility] [address] [place] [address], [place] [phone] * (ABNORMAL) Vitamin D 25 hydroxy (03/03/2025 9:09 AM EST) 25 Hydroxy, Vitamin D 15.9(L) 30.0 - 100.0 ng/ml [facility] Comment: Reference Range for Total Vitamin D 25(OH) Deficiency <20.0 ng/mL Insufficiency 21-29 ng/mL Sufficiency 30-100 ng/mL Toxicity >100 ng/ml Blood 03/03/2025 9:09 AM EST 03/03/2025 Narrative [facility] (AMBULATORY) - 03/04/2025 3:07 AM EST Performed at: [address] [place] [address] [address] [place], [place] [id number] Forming Roll Operator Heavy Duty: Tejinder Sanches MD, Phone: [phone] Patient Fasting: Y Netta MEJIAS LAB BLOOD ORDERABLES Final Res ult Performing Organization Address [facility] de Phone Number [facility] (AMBULATORY) [address] [place] [address], [facility] [address] [place] [address], * (ABNORMAL) T4, free (03/03/2025 9:09 AM EST) Free T4 0.86(L) 0.92 - 1.68 ng/dL [facility] Blood 03/03/2025 9:09 AM EST 03/03/2025 Narrative [facility] (AMBULATORY) - 03/04/2025 3:07 AM EST Performed at: [address] [place] [address] [address] [place], [place] [id number] Forming Roll Operator Heavy Duty: Tejinder Sanches MD, Phone: [phone] Patient Fasting: Y Netta MEJIAS LAB BLOOD ORDERABLES Final Res ult Performing Organization Address [facility] de Phone Number [facility] (AMBULATORY) [address] [place] [address], [facility] [address] [place] [address], * (ABNORMAL) TSH (03/03/2025 9:09 AM EST) TSH 15.300(H) 0.270 - 4.200 uIU/mL [facility] Blood 03/03/2025 9:09 AM EST 03/03/2025 Narrative [facility] (AMBULATORY) - 03/04/2025 3:07 AM EST Performed at: [address] [place] [address] [address] [place], [place] [id number] Forming Roll Operator Heavy Duty: Tejinder Sanches MD, Phone: [phone] Patient Fasting: Y Netta MEJIAS LAB BLOOD ORDERABLES Final Res ult Performing Organization Address City/[facility]/ZIP Co de Phone Number [facility] (AMBULATORY) [address] [place] [address], [facility] [address] [place] [address], * (ABNORMAL) Hemoglobin A1c (03/03/2025 9:09 AM EST) Hemoglobin A1C 8.00(H) 4.80 - 5.60 % [facility] Comment: Hemoglobin A1C Ranges: Increased Risk for Diabetes 5.7% to 6.4% Diabetes >= 6.5% Diabetic Goal < 7.0% Blood 03/03/2025 9:09 AM EST 03/03/2025 Narrative [facility] (AMBULATORY) - 03/04/2025 3:07 AM EST Performed at: [address] [place] [address] [address] [place], [place] [id number] Forming Roll Operator Heavy Duty: Tejinder Sanches MD, Phone: [phone] Patient Fasting: Y Netta MEJIAS LAB BLOOD ORDERABLES Final Res ult Performing Organization Address [facility]/[place] Co de Phone Number [facility] (AMBUL[facility]) [address] [place] [address], [place] [phone] [facility] [address] [place] [address], [place] [phone] * (ABNORMAL) Lipid Panel (03/03/2025 9:09 AM [...] 40 mg/dL [facility] LDL Chol Calc ([facility]) 89 0 - 100 mg/dL [facility] Blood 03/03/2025 9:09 AM EST 03/03/2025 Narrative [facility] (AMBULATORY) - 03/04/2025 3:07 AM EST Performed at: [address] [place] [address] [id number] Forming Roll Operator Heavy Duty: Tejinder Sanches MD, Phone: [phone] Patient Fasting: Y Netta MEJIAS LAB BLOOD ORDERABLES Final Res ult [facility] (AMBULATORY) [address] [place] [address], [facility] [address] [place] [address], * (ABNORMAL) Comprehensive metabolic panel (03/03/2025 9:09 AM EST) [facility] Glucose 166(H) 65 - 99 mg/dL [facility] [...] - 03/04/2025 3:07 AM EST Performed at: [address] [id number] Forming Roll Operator Heavy Duty: Tejinder Sanches MD, Phone: [phone] Patient Fasting: Y Netta MEJIAS LAB BLOOD ORDERABLES Final Res ult [facility] (AMBULATORY) [address] [place] [address], [facility] [address] [place] [address], * (ABNORMAL) CBC w AUTO Differential (03/03/2025 [...] - 03/04/2025 3:07 AM EST Performed at: 01 - [facility] [place] [id number] Forming Roll Operator Heavy Duty: Tejinder Sanches MD, Phone: [phone] Patient Fasting: Y Netta MEJIAS LAB BLOOD ORDERABLES Final Res ult [facility] (AMBULATORY) [address] [place] [address], [facility] [address] [place] [address], documented in this encounter Visit Diagnoses Diagnosis [...] documented as of this encounter Care Teams Concrete Block Mason Relationship Specialty Start Date End Date Net[place] [address] PCP - General Physician Historic Sites Registrar 02/26/18 documented as of this encounter
--- OUTSIDE RECORDS SUMMARY | 2025-03-03 09:10 | XMS_ITS | Encounter Summary ---
[facility] Address [address] [place] [address] Care Team Providers Care Spinning Mule Tender Name Role Phone Netta Mayfield Primary Care Provider [phone] Encounter Details Date Type Department Care Team (Late Contact Info) Description 03/03/2025 9:10 AM EST Lab [facility] MED[facility]INE [address] [place] [address] Social History Tobacco Use Types [...] Description 03/01/2026 11:00 AM EST Office Visit [facility] [address] [place] [address] Netta Mayfield PA [address] [place] [address] documented as of this encounter Visit Diagnoses Not on filedocumented in this encounter Additional Health Concerns Assessment Noted Time A fall risk assessment has been complete d for the patient 03/17/2018 8:51 AM EST documented as of this encounter Care Teams Spinning Mule Tender Relationship Specialty Start Date End Date Netta Mayfield PA [address] [place] [address] PCP - General Physician Stock Holder 02/26/18 documented as of this encounter
--- OUTSIDE RECORDS SUMMARY | 2025-03-17 09:13 | XMS_ITS | Clinical Summary ---
Author Organization [facility] Address [address] [place] [address] Care Team Providers Care Certified Nursing Assistant Instructor Name Role Phone Netta Mayfield Primary Care Provider [phone] Allergies Active Allergy Reactions Criticality Noted Date [...] (PLAVIX) 75 MG tablet 01/08/20 25 Active metFORMIN (GLUCOPHAGE) 500 MG tabletIndications [...] 25 Active vitamin D (ERGOCALCIFEROL) 1.25 MG (36602 UT) capsule capsuleIndication s:Vitamin D insufficiency Take 1 capsule by mouth 1 (One) Time Per Week. 5 capsule 5 02/25/20 25 Active pantoprazole (Protonix) 20 MG EC tabletIndications :Gastroesophageal reflux disease, unspecified whether esophagitis present Take 1 tablet by mouth Daily. 90 tablet 3 02/25/20 25 Active levothyroxine (Synthroid) 112 MCG tabletIndications :Acquired hypothyroidism Take 1 tablet by mouth Every Morning. 90 tablet 03/09/20 25 Active omeprazole (PrilOSEC) 20 MG capsuleIndication [...] Discontinued(Re order) vitamin D (ERGOCALCIFEROL) 1.25 MG (19341 UT) capsule capsuleIndication s:Vitamin D insufficiency Take 1 capsule by mouth 1 (One) Time Per Week. 5 capsule 5 07/30/19 25 025 Discontinued(Re order) levothyroxine (SYNTHROID, LEVOTHROID) 75 MCG tablet Take 1 tablet by mouth Daily. 12/25/19 25 025 Discontinued Active Problems Problem Noted Date Diagnosed Date Coronary artery disease due to lipid rich plaque 06/16/2024 Assessment & Plan (02/28/2025 3:16 PM EST): Orders: CBC w AUTO Differential Comprehensive metabolic panel Lipid Panel atorvastatin (LIPITOR) 40 MG tablet; Take 1 tablet by mouth Every Night. Unstable angina 04/22/2019 Overview (04/22/2019): Added automatically from request for surgery [id number] S/P cardiac catheterization 04/17/2019 Hypothyroidism 04/16/2019 Assessment [...] Encounters Date Type Department Care Team Description 03/09/2025 Results Follow-Up [facility] [address] [phone] Netta Mayfield PA 03/03/2025 9:10 AM EST Lab [facility] [address] [phone] 03/03/2025 Travel 02/24/2025 3:00 PM EST Office Visit [facility] [address] [phone] Netta Mayfield PA Medicare annual wellness visit, [...] 11:00 AM EST Office Visit [facility] [address] [place] [phone] Netta Mayfield PA [address] [place] [address] Health Maintenance Due Date Last Done Comments DXA SCAN 1950 TDAP/TD VACCINES (1 - Tdap) 1970 COLON CANCER SCREENING [address] COLONOGRAPHY 1996 FECAL OCCULT BLOOD TEST 1996 FIT Testing (1 year) 1996 ZOSTER VACCINE (1 of 2) 2001 DIABETIC EYE EXAM 12/31/2019 12/30/2018, (Patient-Reported (Performed Externally)) DIABETIC FOOT EXAM 11/03/2020 11/04/2019, 0 11/04/2019, 11/04/2019 COLONOSCOPY 04/01/2022 04/01/2012 URINE MICROALBUMIN-CREATININE RATIO (uACR) 06/16/2025 06/16/2024, 03/17/2018 COVID-19 Vaccine (3 - Moderna risk series) 08/24/2025 06/12/2020, 05/15/2020 Postponed from 07/10/2020 (Patient Refused) HEMOGLOBIN A1C 09/01/2025 03/03/2025, 06/30, 11/04/2019, Additional history exists ANNUAL WELLNESS VISIT 02/24/2026 02/24/2025 , 02/24/2025, 11/04/2019, Additional history exists MAMMOGRAM 02/24/2026 04/07/2021, 07/2019, 06/20/2018, Additional history exists Postponed from 04/07/2023 (Patient Refused) COLOGUARD 03/05/2028 03/05/2025 COLORECTAL CANCER SCREENING 03/05/2028 HEPATITIS C SCREENING Completed 03/17/2018, 018 Pneumococcal Vaccine 50+ Completed 11/04/2019, 01/31 INFLUENZA VACCINE Completed 02/24/2025, , 12/10/2019, Additional history exists Medical Devices Implanted Type Area Harbor Pilot Device Identifier Shelf Expiration Date Model / Serial / Lot Stent- 0 Implanted:Qty: 2 on 04/16/2019 by Brandon Keyes MD Stent Left: Heart Description:[employer] [place]ma Lot#[id number] [id number] And Lot#[id number] [id number] Stent Xience Alma Everolimus Reagan 2.5x23mm - [id number] Implanted:Qty: 1 on 04/16/2019 by Brandon Keyes MD at [facility] [employer] [id number] / / [id number] Stent Xience Alma Everolimus Reagan 2.5x15mm - [id number] Implanted:Qty: 1 on 04/16/2019 by Brnadon Keyes MD at [facility] [employer] [id number] / / [id number] Stnt Xience Alma Everolimus Reagan 2.5x23mm - [id number] Implanted:Qty: 1 on 05/01/2019 by Brandon Keyes MD at [facility] [employer] [id number] / / Procedures Procedure Name Priority Date/Time Associated Diagnosis Comments SCANNED - LABS 03/08/2025 COLOGUARD Routine 03/05/2025 6:30 AM EST Screening for malignant neoplasm of colon CBC AND DIFFERENTIAL Routine 03/03/2025 9:09 AM [...] Recently Relevant to Health Maintenance Results * LABS SCANNED (03/08/2025) Netta MEJIAS LAB BLOOD ORDERABLES Final Res ult * Cologuard - Stool, Per Rectum (03/05/2025 6:30 AM EST) Cologuard Negative Negative 03/11/2025 10:40 AM EST [employer] (CLIA #:[id number]) Comment: The Cologuard Plus (TM) test was performed on this specimen. NEGATIVE TEST RESULT. A negative (normal) Cologuard Plus result means the patient has a [id number] chance of having colorectal cancer (CRC) or [...] a 91% specificity (Cologuard Plus Clinician Brochure. [employer]. [place], [place].). Visit https://www.[employer])/references/cologuard-plus for more test information, references, warnings, and precautions. Stool specimen (specimen) Specimen from rectum / Unknown 03/05/2025 6:30 AM EST 03/06/2025 12:15 PM EST us Netta MEJIAS BODY FLUIDS AND STOOLS ORDERAB LES Final Result Performing Organization Address [facility] Co de Phone Number [employer] (CLIA #:[id number]) [address] [place] [address], * (ABNORMAL) Vitamin D 25 hydroxy (03/03/2025 9:09 AM EST) 25 Hydroxy, Vitamin D 15.9(L) 30.0 - 100.0 ng/ml [facility] Comment: Reference Range for Total Vitamin D 25(OH) Deficiency <20.0 ng/mL Insufficiency 21-29 ng/mL Sufficiency 30-100 ng/mL Toxicity >100 ng/ml Blood 03/03/2025 9:09 AM EST 03/03/2025 Narrative [facility] ([facility]) - 03/04/2025 3:07 AM EST Performed at: [address] [place] [address] [id number] Metallurgical Lab Technician: Tejinder Sanches MD, Phone: [phone] Patient Fasting: Y us Netta MEJIAS LAB BLOOD ORDERABLES Final Res ult Performing Organization Address [facility]/ZIP Co de Phone Number [facility] ([facility]) [address] [place] [address], [place] [phone] [facility] [address] [place] [address], [place] [phone] * (ABNORMAL) CBC w AUTO Differential (03/03/2025 9:09 AM EST) [facility] WBC 7.83 3.40 - 10.80 10*3/mm3 [facility] [...] 3:07 AM EST Performed at: 01 - [facility] [address] [id number] Metallurgical Lab Technician: Tejinder Sanches MD, Phone: [phone] Patient Fasting: Y Netta MEJIAS LAB BLOOD ORDERABLES Final Res ult Performing Organization Address [facility] de Phone Number [facility] ([facility]UL[facility]) [address] [place] [address], [facility] [address] [place] [address], [place] [phone] * (ABNORMAL) TSH (03/03/2025 9:09 AM EST) TSH 15.300(H) 0.270 - 4.200 uIU/mL [facility] Blood 03/03/2025 9:09 AM EST 03/03/2025 Narrative [facility] ([facility]) - 03/04/2025 3:07 AM EST Performed at: [address] [place] [address] [id number] Metallurgical Lab Technician: Tejinder Sanches MD, Phone: [phone] Patient Fasting: Y Netta MEJIAS LAB BLOOD ORDERABLES Final Res ult Performing Organization Address [facility] Co de Phone Number [facility] ([facility]UL[facility]) [address] [place] [address], [facility] [address] [place] [address], [place] [phone] * (ABNORMAL) T4, free (03/03/2025 9:09 AM EST) Free T4 0.86(L) 0.92 - 1.68 ng/dL [facility] Blood 03/03/2025 9:09 AM EST 03/03/2025 Narrative [facility] ([facility]) - 03/04/2025 3:07 AM EST Performed at: [address] [place] [address] [id number] Metallurgical Lab Technician: Tejinder Sanches MD, Phone: [phone] Patient Fasting: Y Netta MEJIAS LAB BLOOD ORDERABLES Final Res ult Performing Organization Address [facility]/ZIP Co de Phone Number [facility] ([facility]) [address] [place] [address], [facility] [address] [place] [address], * Magnesium (03/03/2025 9:09 AM EST) Pathologist [facility] Magnesium 2.2 1.6 - 2.4 mg/dL [facility] Blood 03/03/2025 9:09 AM EST 03/03/2025 Narrative [facility] ([facility]) - 03/04/2025 3:07 AM EST Performed at: [address] [place] [address] [id number] Metallurgical Lab Technician: Tejinder Sanches MD, Phone: [phone] Patient Fasting: Y Netta MEJIAS LAB BLOOD ORDERABLES Final Res ult Performing Organization Address [facility]/ZIP Co de Phone Number [facility] ([facility]UL[facility]) [address] [place] [address], [facility] [address] [place] [address], * (ABNORMAL) Hemoglobin A1c (03/03/2025 9:09 AM EST) Hemoglobin A1C 8.00(H) 4.80 - 5.60 % [facility] Comment: Hemoglobin A1C Ranges: Increased Risk for Diabetes 5.7% to 6.4% Diabetes >= 6.5% Diabetic Goal < 7.0% Blood 03/03/2025 9:09 AM EST 03/03/2025 Narrative [facility] ([facility]) - 03/04/2025 3:07 AM EST Performed at: [address] [place] [address] [id number] Metallurgical Lab Technician: Tejinder Sanches MD, Phone: [phone] Patient Fasting: Y Netta MEJIAS LAB BLOOD ORDERABLES Final Res ult [facility] ([facility]) [address] [place] [address], [place] [phone] [facility] [address] [place] [address], [place] [phone] * (ABNORMAL) Lipid Panel (03/03/2025 9:09 AM EST) [facility] Total Cholesterol 167 0 - 200 mg/dL [...] 03/03/2025 9:09 AM EST 03/03/2025 Narrative [facility] (AMBULATORY) - 03/04/2025 3:07 AM EST Performed at: [address] [place] [address] [id number] Metallurgical Lab Technician: Tejinder Sanches MD, Phone: [phone] Patient Fasting: Y Netta MEJIAS LAB BLOOD ORDERABLES Final Res ult [facility] ([facility]) [address] [place] [address], [place] [phone] [facility] [address] [place] [address], [place] [phone] * (ABNORMAL) Comprehensive metabolic panel (03/03/2025 9:09 AM EST) Glucose 166(H) 65 - 99 mg/dL [facility] [...] 03/03/2025 9:09 AM EST 03/03/2025 Narrative [facility] ([facility]) - 03/04/2025 3:07 AM EST Performed at: [address] [place] [address] [id number] Metallurgical Lab Technician: Tejinder Sanches MD, Phone: [phone] Patient Fasting: Y Netta MEJIAS LAB BLOOD ORDERABLES Final Res ult [facility] (AMBULATORY) [address] [place] [address], [facility] [address] [place] [address], [place] [phone] * (ABNORMAL) POC Albumin/Creatinine Ratio Urine (06/16/2024 [...] with a HCV Nucleic Acid Amplification test ([id number]). Blood 03/17/2018 9:50 AM EST 03/17/2018 Narrative [facility] (AMBULATORY) - 03/18/2018 6:11 AM EST Performed at: 01 - [address] [id number] Metallurgical Lab Technician: Butch Del Toro PhD, Phone: [phone] Patient Fasting: N us Netta MEJIAS LAB BLOOD ORDERABLES Final Res ult [facility] [address] [place] [address], [place] [phone] [facility] [address] [place] [address], [place] [phone] from Last 3 Months or Most Recently Relevant to Health Maintenance Insurance [facility] MEDICARE A & B Advance Directives * CPR (Attempt to Resuscitate) (Latest Code Status on File) Date Activated Date Inactivated Comments 04/15/2019 10:31 PM 04/17/2019 3:38 PM Question Answer Comments Code Status (Patient has no pulse and is not breathing): CPR (Attempt to Resuscitate) Medical Interventions (Patie nt has pulse or is breathing): Full Level Of Support Discussed With: Patient Care Teams Certified Nursing Assistant Instructor Relationship Specialty Start Date End Date Netta [place]field [place] [address] PCP - General Physician Automobile Accessories Salesperson 02/26/18
--- OUTSIDE RECORDS SUMMARY | 2025-03-17 09:13 | XMS_ITS | Encounter Summary ---
[facility] Address [address] [place] [id number] Care Team Providers Care Laser Technician Name Role Phone Netta Mayfield Primary Care Provider [phone] Encounter Details Date Type Department Care Team (Late st Contact Info) Description 03/09/2025 Results Follow-Up [facility] [address] [place] [address] Netta Mayfield PA [address] [place], [place] [id number] Social History Tobacco Use Types Packs/Day Years [...] on file documented as of this encounter Miscellaneous Notes * Telephone Encounter - Netta Mayfield PA - 03/09/2025 9:28 AM EST Going back up to 112 mcg daily. New Rx sent. Schedule 3 month follow up documented in this encounter Plan of Treatment Upcoming Encounters Date Type Department Care Team (Late st Contact Info) Description 03/01/2026 11:00 AM EST Office Visit [facility] [address] [place] [address] Netta Mayfield PA [address] [place] [address] documented as of this encounter Visit Diagnoses Diagnosis Acquired hypothyroidism- Primary Unspecified hypothyroidism documented in this encounter Additional Health Concerns Assessment Noted Time A fall risk assessment has been complete d for the patient 03/17/2018 8:51 AM EST documented as of this encounter Care Teams Laser Technician Relationship Specialty Start Date End Date Netta Mayfield PA [address] [place] [address] PCP - General Physician Extracting Machine Operator 02/26/18 documented as of this encounter
--- OUTSIDE RECORDS SUMMARY | 2025-03-17 09:13 | XMS_ITS | Encounter Summary ---
Author Organization [facility] Address [address] [place] [id number] Care Team Providers Care Supervisor Decorating Name Role Phone Netta Mayfield Primary Care Provider [phone] Encounter Details Date Type Department Care Team [...] Description 03/01/2026 11:00 AM EST Office Visit [facility] [address] [place] [address] Netta Mayfield PA [address] [place] [address] documented as of this encounter Visit Diagnoses Not on filedocumented in this encounter Additional Health Concerns Assessment Noted Time A fall risk assessment has been complete d for the patient 03/17/2018 8:51 AM EST documented as of this encounter Care Teams Supervisor Decorating Relationship Specialty Start Date End Date Netta Mayfield PA [address] [place] [address] PCP - General Physician Hockey Instructor 02/26/18 documented as of this encounter
--- OUTSIDE RECORDS SUMMARY | 2025-03-17 09:13 | XMS_ITS | Encounter Summary ---
[facility] Address [address] [place] [id number] Care Team Providers Care Transition Mgr Rn Name Role Phone Netta Mayfield Primary Care Provider Encounter Details Date Type Department Care Team (Late Contact Info) Description 07/29/2024 Results Follow-Up [facility] [address] [place] [address] Netta Mayfield PA [address] [place] [address] Social History Tobacco Use Types [...] 11:00 AM EST Office Visit [facility] [address] [place] [phone] Netta Mayfield PA [address] [place] [address] Scheduled Orders Name Type Priority [...] documented as of this encounter Care Teams Transition Mgr Rn Relationship Specialty Start Date End Date Netta Mayfield PA [address] [place] [address] PCP - General Physician Transportation Maintenance Operator 02/26/18 documented as of this encounter
--- OUTSIDE RECORDS SUMMARY | 2025-03-17 09:13 | XMS_ITS | Encounter Summary ---
Author Organization [facility] Address [address] [place] [id number] Care Team Providers Care House Furnishings Supervisor Name Role Phone Netta Mayfield Primary Care Provider [phone] Encounter Details Date Type Department Care Team [...] Description 03/01/2026 11:00 AM EST Office Visit [facility] [address] [place] [address] Netta Mayfield PA [address] [place] [address] documented as of this encounter Visit Diagnoses Not on filedocumented in this encounter Additional Health Concerns Assessment Noted Time A fall risk assessment has been complete d for the patient 03/17/2018 8:51 AM EST documented as of this encounter Care Teams House Furnishings Supervisor Relationship Specialty Start Date End Date Netta Mayfield PA [address] [place] [address] PCP - General Physician Clin Nurse 02/26/18 documented as of this encounter
--- NOTE | 2025-03-17 09:30 | CA_ITS ---
APPROVED REPORT EXAM: Comprehensive 2D, Doppler, and color-flow Echocardiogram Nylon Machine Operator: Ayde Gonzalez CRT Ht: 5 ft 4 in Wt: 159lbs BSA: 1.77 BP: 151/47 mmHg Indications: Abnormal GXT ef 39%, LV Function:, Diabetes, CAD, smoker, old [place], stents Echo Enhancing Agent Indication: Endocardial border delineation Agent(s) / Amount(s) Used: Definity 2 cc Comments: Definity ordered 2D Dimensions Left Atrium 4.87 cm LVEF (Cuevas's) 48.30 % LVOT 1.81 cm (M/F) 1.5-2.5 LV Volume 130.40 mL LA Volume 41.10 mL LA Volume Index 23.20 mL/m2 (M/F) 16-34 EF AP4 48.60 % EF AP2 48.4 % EF BP 48.3 % GL Strain -14.3 % M-Mode Dimensions RVDd 2.00 cm (0.9-2.6) LVDd 4.86 cm (3.5-5.7) Ao Diam 3.26 cm (2.0-3.7) LVDs 3.86 cm (3.5-5.7) IVSd 2.18 cm (0.6-1.1) PWd 0.89 cm (0.6-1.1) EF (Teich) 41.90% FS 20.60% EDV (Teich) 110.70 mL TAPSE 2.02 (<1.7) ESV (Teich) 64.30 mL LV Diastology E Decel Time 292 (160-240 msec) E/A Ratio 1.01 MED E' 6.9 (>= 7 cm/sec) MED A' 9.00 cm/s E'/MED E' Ratio 11.83 (<= 14) LAT E' 6.3 (>= 10 cm/sec) LAT A' 10.00 cm/s E/LAT E' Ratio 12.95 (<= 14) Aortic Valve AoV Peak Lenny. 127.0 (50-130 cm/s) AI PHT 496.00 ms AO Peak GR. 6.40 mmHg Mitral Valve MV E Max Lenny. 82.0 (40-130 cm/s) MV A Velocity 81.0 (40-130 cm/s) E/A Ratio 1.01 MV Decel. Time 292 (160-240 ms) Tricuspid Valve TR P. Velocity 324.00 cm/s RAP Estimate 10.00 mmHg RVSP 51.90 mmHg Left Ventricle The left ventricle is normal size. Left ventricular systolic function is low-normal. The left ventricular ejection fraction is within the normal range. There is increased left ventricular wall thickness. There is normal LV segmental wall motion. Transmitral Doppler flow pattern suggests impaired LV relaxation. No left ventricle thrombus noted on this study. LVEF is 50% Right Ventricle The right ventricle is normal size. The right ventricular systolic function is normal. Atria The left atrium is moderately dilated. The right atrium size is normal. There is no color Doppler evidence of interatrial shunt. Aortic Valve The aortic valve is mildly thickened. There is no hemodynamically significant aortic valvular stenosis. Mild aortic regurgitation is present. Mitral Valve The mitral valve is mildly thickened. No evidence of mitral valve stenosis. Moderate mitral regurgitation is present. Tricuspid Valve The tricuspid valve leaflets are thin and pliable. Trace tricuspid regurgitation. There is insufficient TR jet to estimate RVSP. Pulmonic Valve The pulmonary valve is grossly normal in structure. Trace pulmonic valve regurgitation is present. Great Vessels The aortic root is normal in size. IVC is normal in size and collapses >50% with inspiration. Pericardium There is no pericardial effusion. Other Information Study Quality: Technically Difficult Conclusion Low-normal LV systolic function is present (LVEF 50%). LA dilation. Moderate MR. Mild AI. Electronically signed by : Kierra Schmid MD 03/28/2025 13:11:05
[2025-03-17] MEDS: DEFINITY US ECHO CONTRAST 2ML INJ 2 MG IV (09:55)
== END 2025-03-17 23:59 | disposition home or self-care (01) ==
LOC: RT 08:49
PROVIDERS: PCP Physician Assistant; Visit Provider Internal Medicine
DX: I25.118 Atherosclerotic heart disease of native coronary artery with other forms of angina pectoris (principal)
CPT/HCPCS: 93306; Q9957

== ENCOUNTER 2025-03-18 08:08 | Day surgery (SDC) | payer MEDICARE, BC, SELFPAY ==
[2025-03-18] VITALS (12 sets, daily range): BP systolic 175–202; BP diastolic 78–93; PULSE 61–74; RESP 20; O2SAT 91–98; BMI 27.3
--- NOTE | 2025-03-18 07:21 | IR_ITS ---
APPROVED REPORT Patient Location: Outpatient PROCEDURES Left heart catheterization Left ventriculogram Selective coronary angiogram Drug-eluting stent deployment to the proximal and mid circumflex artery INDICATION Coronary artery disease, Abnormal Myoview, Accelerated angina pectoris, Informed consent was obtained prior to the procedure. COMPLICATIONS None Estimated Blood Loss: Less than 10 mls TECHNIQUE One percent lidocaine used to anesthetize the right anterior aspect of the wrist. The right radial artery was accessed via the Seldinger technique. A 6 Macedonian sheath was placed in the right radial artery. 2.5 mg of Verapamil, 800 mcg of nitroglycerin, 1mg Lidocaine and 5000 U Heparin were given through the arterial sheath. The JL3 catheter was also used to perform left heart catheterization, left ventriculogram and selective coronary angiogram. At the end of the diagnostic angiogram therapeutic heparin was administered giving a therapeutic ACT and the guide catheter was placed in left main artery followed by Choice PT extra-support wire placed on the circumflex artery. A 3 mm x 38 mm [place] frontier stent was deployed at 20 betsy in the proximal to mid circumflex artery reducing the stenosis to 0%. CARMINE-3 flow was present before and after the procedure. At the end the procedure the apparatus was removed the sheath was removed and hemostasis was achieved and TR banding patient was transferred to the postop holding area in stable condition ANGIOGRAPHIC RESULTS The left main artery Normal The left anterior descending artery Has stents in the proximal mid segment which are widely patent free of in-stent restenosis. Distal to the stents the LAD is subtotally occluded and fills via left to left collaterals. A large ramus intermedius originates proximally in the LAD and is proximally occluded. A large first diagonal artery has ostial proximal 60% stenosis with a mid vessel 80 to 90% stenosis. This is a large-caliber vessel The circumflex artery Is dominant and has proximal 50% with tandem 70% mid vessel stenoses. This gives rise to a large terminal obtuse marginal artery which is widely patent The right coronary artery Is nondominant and has stents in the proximal to mid segment which are widely patent with minimal in-stent restenosis. 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 Recommend medical management at this time 2. Patient's diagonal artery has not changed in severity since her cardiac catheterization in May of this year. The only advancement in her coronary disease occurred at the circumflex artery which was revascularized. The patient continues to experience angina pectoris recalcitrant to medical management I would consider performing stenting on the diagonal artery however at this point it is unlikely this is the etiology for patient's angina. Typically diagonal arteries respond favorably to medical management and stenting this vessel would require bifurcating stenting back into the proximal LAD which at this point is ill-advised 3. Risk factor modification Electronically signed by : Karsten Coelho MD 03/18/2025 12:23:55
[2025-03-18 08:37] LABS: Chloride 102 mmol/L (98-107); Sodium 134 mmol/L (136-145)
[2025-03-18 08:38] LABS: Potassium 4.0 mmoL/L (3.5-5.1)
[2025-03-18 08:40] LABS: Anion Gap 6.0 mEq/L (5-15); Blood Urea Nitrogen 15 mg/dl (7-17); Carbon Dioxide 30 mmol/L (22.0-30.0); Creatinine Clearance Estimated 57 mL/min (50-200); Creatinine,Serum 0.80 mg/dl (0.52-1.04); Estimated Glomerular Filt Rate 70 ml/min (>60); GFR (African American) 85 ML/MIN (>60)
[2025-03-18 08:41] LABS: Calcium 9.4 mg/dl (8.4-10.2); Glucose 199 mg/dl (74-100)
[2025-03-18 08:47] LABS: Hematocrit 41.9 % (37.0-47.0); Hemoglobin 14.2 g/dL (12.2-16.2); Immature Granulocytes % 0.3 %; Mean Corpuscular HGB Conc 33.9 g/dL (31.8-35.4); Mean Corpuscular Hemoglobin 31.8 pg (27.0-31.2); Mean Corpuscular Volume 93.7 fl (81-99); Nucleated Red Blood Cells % 0 %; Platelet Count 187 K/mm3 (142-424); Red Blood Count 4.47 M/mm3 (4.20-5.40); Red Cell Distribution Width-SD 42.9 fL; White Blood Count 7.3 K/mm3 (4.8-10.8)
[2025-03-18] MEDS: LIDOCAINE 1% 10ML MDV 10 ML IJ (10:20)
[2025-03-18] MEDS: NITROGLYCERIN 800MCG/8ML SYR (CATH LAB) 800 MCG IA (10:20)
[2025-03-18] MEDS: 0.9 % SODIUM CHLORIDE 500 ML 25 ML IV (10:20)
[2025-03-18] MEDS: HEPARIN 1,000 UNITS/ML 10ML VIAL (CATH LAB) 5000 UNIT IV (10:20)
[2025-03-18] MEDS: MIDAZOLAM HCL 1MG/ML 5ML VIAL 1 MG IV (10:21)
[2025-03-18] MEDS: FENTANYL 100MCG/2ML VIAL 50 MCG IV (10:21)
[2025-03-18] MEDS: VERAPAMIL 2.5MG/ML 2ML VIAL 2.5 MG IV (10:21)
[2025-03-18] MEDS: HEPARIN 1,000 UNITS/500ML NS (CATH LAB) 3000 UNIT IV (10:21)
[2025-03-18] MEDS: CLOPIDOGREL 75MG TAB 75 MG PO (11:25)
[2025-03-18 12:30] LABS: CATHL Activated Clotting Time 317 SEC (74-125)
--- NOTE | 2025-03-19 12:04 | PC.NURSE ---
03/19/2025 Pt stated she is not interested at this time.
== END 2025-03-18 14:13 | disposition home or self-care (01) ==
LOC: CATHLAB 08:09
PROVIDERS: PCP Physician Assistant; Visit Provider Internal Medicine
PROC: 4A023N7 Measurement of Cardiac Sampling and Pressure, Left Heart, Percutaneous Approach (ICD-10-PCS; CPT 93452; principal; 2025-03-18 08:45)
DX: I25.118 Atherosclerotic heart disease of native coronary artery with other forms of angina pectoris (principal); R94.39 Abnormal result of other cardiovascular function study; E11.9 Type 2 diabetes mellitus without complications; I10 Essential (primary) hypertension; E78.49 Other hyperlipidemia; I25.2 Old myocardial infarction; K21.9 Gastro-esophageal reflux disease without esophagitis; Z87.891 Personal history of nicotine dependence; Z79.84 Long term (current) use of oral hypoglycemic drugs; Z79.02 Long term (current) use of antithrombotics/antiplatelets; Z79.82 Long term (current) use of aspirin; Z79.890 Hormone replacement therapy; Z79.899 Other long term (current) drug therapy; Z88.0 Allergy status to penicillin; Z95.5 Presence of coronary angioplasty implant and graft
CPT/HCPCS: 80048; 85025; 85347; 92928; 93458; 99152; C1769; C1874; C1887; C9600; J1200; J1644; J3010; J7040; Q9967